=== PATIENT | female | born 1945 | race Caucasian/White ===

== ENCOUNTER 2022-06-17 10:09 | Emergency (ER) | payer OTHER ==
[2022-06-17 11:19] LABS: Urine Blood Trace-intact (Negative); Urine Glucose Trace (Negative); Urine Protein 1+ (Negative); Urine pH 5.5 (5.0-7.0)
[2022-06-17 11:44] LABS: Absolute Lymphocytes (CBC) 1.6 K/uL (0.7-4.9); Hematocrit 41.2 % (36.0-45.0); Lymphocytes % 26.7 % (15.3-44.8); MCV 89.6 fL (80-100); MPV 8.4 fL (7.6-11.3)
[2022-06-17 11:46] LABS: Urine Bacteria >50 /HPF (<20); Urine RBC <5 /HPF (None Seen)
[2022-06-17 11:58] LABS: Albumin 4.2 g/dL (3.4-5.0); Bilirubin Total 0.7 mg/dL (0.2-1.0); Potassium 3.7 mmol/L (3.5-5.1); Protein, Total 7.6 g/dL (6.4-8.2)
--- NOTE | 2022-06-17 11:59 | RAD REPORT ---
EXAM DESCRIPTION: RAD - Abdomen 1 View (KUB) - 06/17/2022 11:49 am CLINICAL HISTORY: CONSTIPATION COMPARISON: No comparisons FINDINGS: Nonobstructive bowel gas pattern. No acute osseous abnormality.Visualized lungs are unrema rkable.No abnormal calcifications. Moderate to large stool burden in the rectum. IMPRESSION: Nonobstructive bowel gas pattern. Moderate to large rectal stool burden consistent with given history of constipation. .
[2022-06-17] MEDS ORDERED: NA CHLORIDE 0.9% 1,000 ML ONE (13:06)
[2022-06-17] MEDS ORDERED: CEFTRIAXONE 1000 MG/VIAL ONE (13:27)
[2022-06-17] MEDS ORDERED: LIDOCAINE 1% MPF 2 ML AMPULE ONE (13:28)
[2022-06-17] MEDS ORDERED: LACTULOSE 20 GM/30 ML UCUP ONE (13:28)
[2022-06-17] MEDS ORDERED: FLEET ENEMA ADULT PR ONE (14:17)
--- NOTE | 2022-06-17 14:41 | ER ---
Nurse's Notes [facility] Name: Stephanie Thao Age: 77 yrs Sex: Female : 1945 Arrival Date: 06/17/2022 Time: 10:12 Bed 2 Private MD: Rj Lomeli Diagnosis: Constipation;UTI/ Urinary tract infection, site not specified Presentation: 06/17 10:29 Chief complaint: Patient states: constipated this morning , last BM was 2-3 days ago it iw was diarrhea , is having some cramps and has been straining ,has not taken any stool softeners at home. Coronavirus screen: At this time, the client does not indicate any symptoms associated with coronavirus-19. Ebola Screen: Patient negative for fever greater than or equal to 101.5 degrees Fahrenheit, and additional compatible Ebola Virus Disease symptoms Patient denies exposure to infectious person. Patient denies travel to an Ebola-affected area in the 21 days before illness onset. No symptoms or risks identified at this time. Initial Sepsis Screen: Does the patient meet any 2 criteria? No. Patient's initial sepsis screen is negative. Does the patient have a suspected source of infection? No. Patient's initial sepsis screen is negative. Risk Assessment: Do you want to hurt yourself or someone else? Patient reports no desire to harm self or others. Onset of symptoms was June 14, 2022. 10:29 Method Of Arrival: Ambulatory iw 10:29 Acuity: MADY 3 iw Historical: - Allergies: 10:30 Macrobid; iw - PMHx: 10:30 Diabetes mellitus; bowel obstruction; Myocardial infarction; iw - PSHx: 10:30 heart stents; hysterectomy; Cholecystectomy; iw - Immunization history:: Adult Immunizations. - Social history:: Smoking status: Patient denies any tobacco usage or history of. Screenin:12 Abuse screen: Denies threats or abuse. Denies injuries from another. Nutritional hb screening: No deficits noted. Tuberculosis screening: No symptoms or risk factors identified. Fall Risk None identified. Assessment: 10:32 General: Appears in no apparent distress. iw 13:12 General: Appears in no apparent distress. Behavior is calm, cooperative. Pain: Pain hb currently is 3 out of 10 on a pain scale. Neuro: Level of Consciousness is awake, alert, obeys commands, Oriented to person, place, time, situation. Cardiovascular: Patient's skin is warm and dry. Respiratory: Respiratory effort is even, unlabored, Respiratory pattern is regular, symmetrical. GI: Reports constipation. : No signs and/or symptoms were reported regarding the genitourinary system. EENT: No signs and/or symptoms were reported regarding the EENT system. Derm: Skin is pink, warm \T\ dry. Musculoskeletal: No signs and/or symptoms reported regarding the musculoskeletal system. Vital Signs: 10:29 BP 190 / 96; Pulse 71; Resp 16; Temp 97.4; Pulse Ox 97% on R/A; iw ED Course: 10:12 Patient arrived in ED. rg4 10:12 Rj Lomeli DO is Private Physician. rg4 10:30 Triage completed. iw 10:31 Arm band placed on. iw 10:38 Bee Weiss FNP is PHCP. jh7 10:38 Josh Joshi MD is Attending Physician. jh7 11:21 Urine Microscopic Only Sent. mb7 11:30 Urine Microscopic Only Sent. mb7 11:30 CBC with Diff Sent. mb7 11:30 CMP Sent. mb7 11:30 Inserted saline lock: 20 gauge in left antecubital area, using aseptic technique. Blood mb7 collected. 11:51 XRAY KUB In Process Unspecified. EDMS 12:56 Bety Cheung, RN is Primary Nurse. hb 13:12 Patient has correct armband on for positive identification. Bed in low position. Call hb light in reach. Side rails up X 1. 14:40 Rj Lomeli DO is Referral Physician. [facility] Administered Medications: 13:05 Drug: NS 0.9% 1000 ml Route: IV; Rate: 1 bolus; Site: left antecubital; hb 13:26 Drug: Rocephin (cefTRIAXone) 1 grams Route: IV; Rate: 1 calculated rate; Site: left hb antecubital; 13:26 Drug: Lactulose 30 grams Volume: 45 ml; Route: PO; hb 14:39 Not Given (pt had a BM): Fleet Enema (sodium phosphate) 133 ml LA once [facility] Medication: 13:12 VIS not applicable for this client. hb Outcome: 14:40 Discharge ordered by . [facility] 15:19 Patient left the ED. hb Signatures: Dispatcher [employer] Damari Jay, Bety Marquez RN, RN RN hb Garcia, Rubi 4 Jolene Noriega 7 Bee Weiss, JOSIAH OXYACETYLENE BURNER jh7
--- NOTE | 2022-06-17 14:41 | EDPHYS ---
Physician Documentation [facility] Name: Stephanie Thao Age: 77 yrs Sex: Female : 1945 Arrival Date: 06/17/2022 Time: 10:12 Bed 2 Private MD: [facility] ED Physician Josh Joshi HPI: 06/17 10:40 This 77 yrs old Female presents to ER via Ambulatory with complaints of Constipation. jh7 10:40 Onset: The symptoms/episode began/occurred 3 day(s) ago. Associated signs and symptoms: jh7 Pertinent positives: abdominal pain, Pertinent negatives: diarrhea. 77-year-old female presents with constipation for the past 3 days. States that she is used to chronic diarrhea due to her diabetic meds. Reports no bowel movement for 3 days and is also now having lower abdominal pain. Denies nausea, vomiting, or fever. States that she has not taken any laxatives or stool softeners at home. History of diabetes, [place] in 2017 with stents, and bowel obstruction. 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 Historical: - Allergies: 10:30 Macrobid; iw - PMHx: 10:30 Diabetes mellitus; bowel obstruction; Myocardial infarction; iw - PSHx: 10:30 heart stents; hysterectomy; Cholecystectomy; iw - Immunization history:: Adult Immunizations. - Social history:: Smoking status: Patient denies any tobacco usage or history of. ROS: 10:30 Constitutional: Negative for fever, chills, and weight loss, Neck: Negative for injury, jh7 pain, and swelling, Cardiovascular: Negative for chest pain, palpitations, and edema, Respiratory: Negative for shortness of breath, cough, wheezing, and pleuritic chest pain, Back: Negative for injury and pain, MS/Extremity: Negative for injury and deformity, Skin: Negative for injury, rash, and discoloration, Neuro: Negative for headache, weakness, numbness, tingling, and seizure. 10:30 Abdomen/GI: Positive for abdominal pain, constipation, Negative for nausea, vomiting, and diarrhea, black/tarry stool. 10:30 All other systems are negative. Exam: 10:30 Constitutional: This is a well developed, well nourished patient who is awake, alert, jh7 and in no acute distress. ENT: Nares patent. No nasal discharge, no septal abnormalities noted. Oropharynx with no redness, swelling, or masses, exudates, or evidence of obstruction, uvula midline. Mucous membranes moist. Neck: Trachea midline, no thyromegaly or masses palpated, and no cervical lymphadenopathy. Supple, full range of motion without nuchal rigidity, or vertebral point tenderness. No Meningismus. Cardiovascular: Regular rate and rhythm with a normal S1 and S2. No gallops, murmurs, or rubs. Normal PMI, no JVD. No pulse deficits. Respiratory: Lungs have equal breath sounds bilaterally, clear to auscultation and percussion. No rales, rhonchi or wheezes noted. No increased work of breathing, no retractions or nasal flaring. Back: No spinal tenderness. No costovertebral tenderness. Full range of motion. Skin: Warm, dry with normal turgor. Normal color with no rashes, no lesions, and no evidence of cellulitis. MS/ Extremity: Pulses equal, no cyanosis. Neurovascular intact. Full, normal range of motion. Neuro: Awake and alert, GCS 15, oriented to person, place, time, and situation. Motor strength 5/5 in all extremities. Sensory grossly intact. Normal gait. 10:30 Abdomen/GI: Inspection: abdomen appears normal, Bowel sounds: normal, Palpation: mild abdominal tenderness, in the right lower quadrant and left lower quadrant. Vital Signs: 10:29 BP 190 / 96; Pulse 71; Resp 16; Temp 97.4; Pulse Ox 97% on R/A; iw MDM: 12:51 Patient medically screened. [facility] 14:30 Differential diagnosis: Constipation, small bowel obstruction. Data reviewed: vital [facility] signs, nurses notes, lab test result(s), radiologic studies, plain films. Data interpreted: Pulse oximetry: is 97 %. Interpretation: normal. Counseling: I had a detailed discussion with the patient and/or guardian regarding: the historical points, exam findings, and any diagnostic results supporting the discharge/admit diagnosis, to return to the emergency department if symptoms worsen or persist or if there are any questions or concerns that arise at home. Response to treatment: the patient's symptoms have resolved after treatment, Patient had a bowel movement after lactulose and her abdominal pain resolved.. ED course: Reviewed the patient's lab work and x-ray. Her blood pressure decreased and her symptoms resolved after she had a bowel movement. Informed her that she had a UTI and she would be prescribed antibiotics along with stool softeners. If the patient symptoms returned, she developed any new concerning symptoms, she may return to the ER for further eval. 06/17 10:38 Order name: CBC with Diff; Complete Time: 12:50 [facility] 06/17 10:38 Order name: CMP; Complete Time: 12:50 [facility] 06/17 10:32 Order name: XRAY KUB; Complete Time: 12:50 06/17 10:38 Order name: Urine Microscopic Only; Complete Time: 12:50 [facility] 06/17 11:19 Order name: Urine Dipstick-Ancillary; Complete Time: 11:27 [facility] 06/17 11:49 Order name: Urine Culture [facility] 06/17 10:38 Order name: IV Saline Lock; Complete Time: 11:29 [facility] 06/17 10:38 Order name: Labs collected and sent; Complete Time: 11:30 [facility] 06/17 10:38 Order name: Urine Dipstick-Ancillary (obtain specimen); Complete Time: 11:21 [facility] Administered Medications: 13:05 Drug: NS 0.9% 1000 ml Route: IV; Rate: 1 bolus; Site: left antecubital; hb 13:26 Drug: Rocephin (cefTRIAXone) 1 grams Route: IV; Rate: 1 calculated rate; Site: left hb antecubital; 13:26 Drug: Lactulose 30 grams Volume: 45 ml; Route: PO; hb 14:39 Not Given (pt had a BM): Fleet Enema (sodium phosphate) 133 ml MS once [facility] Disposition Summary: 06/17/22 14:40 Discharge Ordered Location: Home [facility] Problem: new [facility] Symptoms: have improved [facility] Condition: Stable [facility] Diagnosis - Constipation [facility] - UTI/ Urinary tract infection, site not specified [facility] Followup: [facility] - With: Rj Lomeli DO - When: 2 - 3 days - Reason: Recheck today's complaints Discharge Instructions: - Discharge Summary Sheet [facility] - Constipation, Adult [facility] - Urinary Tract Infection, Adult [facility] Forms: - Medication Reconciliation Form [facility] - Thank You Letter [facility] - Antibiotic Education [facility] Prescriptions: - Cephalexin 500 mg Oral Capsule - take 1 capsule by ORAL route every 12 hours for 7 days; 14 capsule; Refills: 0, jh7 Product Selection Permitted - Colace 100 mg Oral Tablet - take 1 tablet by ORAL route every 12 hours; 14 tablet; Refills: 0, Product 7 Selection Permitted Signatures: Damari Zhang RN RN Bety Cheung RN RN Bee Weiss, MICRO COMPUTER SPECIALIST [place] [id number]
[2022-06-17 16:00] VITALS: BP 190/96; TEMP 97.4; O2SAT 97
== END 2022-06-17 15:19 | disposition home or self-care (01) ==
LOC: ER 10:09
DX: K59.00 Constipation, unspecified (principal); N39.0 Urinary tract infection, site not specified; E11.9 Type 2 diabetes mellitus without complications; I25.2 Old myocardial infarction; Z88.1 Allergy status to other antibiotic agents; Z95.818 Presence of other cardiac implants and grafts
CPT/HCPCS: 87088; 85025; 87086; 36415; 80053; 74018; J7030; 81003; 81015; 87077; 87186; 96374; 99284

== ENCOUNTER 2022-09-08 13:28 | Emergency (ER) | payer OTHER ==
--- OUTSIDE RECORDS SUMMARY | 2022-09-08 13:33 | XMS REPORT | Continuity of Care Document ---
:1945 Author Organization [facility] t Address [address] [place] [address] Care Team Providers Name Role Phone Lomeli, Rj Arnold Attending Clinician Unavailable Payers Payer Name Policy Type Policy Number Effective Date Expiration Date S evi [facility] [employer] 1 [id number] 2020 Common TRS/ERS MCR PPO 00:00:00 [facility] Problems Condition Condition Condition Status Onset Resolution Last Treating Co mments Source Name Details Category Date Date Treatment Clinician Date [id number] Type 2 [place] [id number] diabetes Spirit mellitus - [facility] with other diabetic [facility] kidney Medical complicati Center on [id number] Vitamin D Problem Active Comm on deficiency Spirit [facility] [id number] Constipati Problem Active Com mon on, Spirit unspecifie - [facility] d constipati [facility] on [facility] [id number] Mixed Problem Active Common hyperlipid Spirit emia [facility] [id number] Stented Problem Active Commo n coronary [facility] artery - [facility] [id number] Memory Problem Active Common change [facility] [id number] 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) [facility] herpetic Medical neuralgia Center [id number] History of Problem Active Co mmon [place] [facility] (myocardia - [facility] l [facility] ) [facility] [id number] Dementia Problem Active Commo n without [facility] d [facility] Center type [id number] Diabetic Problem Active Comm on polyneurop Spirit athy - [facility]I associated [facility] with type [facility] 2 diabetes Medica l mellitus Center [id number] Essential Problem Active Comm on hypertensi Spirit on - [facility] [id number] Asymptomat Problem Active Co mmon ic Spirit hypertensi - [facility] ve urgency [facility] [id number] 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 Social History Social Habit Start Date Stop Date Quantity Comments Source History of Tobacco Use Co mmon [facility] Sex Assigned At Com mon [facility] Smoking Status Start Date Stop Date Source Never Smoker Common [facility] Medications Ordered Filled Start Stop Current Ordering Indication Dosage Frequency Signature Comments Components Source Medication Medication Date Date Medication? Clinician (SIG) Name Name Mehul Ying Tradjenta 5 No 1{table QD Tradjenta MG MG 07-21 t} 5 MG 00:00: 00 Fluconazole Fluconazole 2021- No 1{table Fluconazol 150 MG 150 MG 06-22 08-04 t} e 150 MG 00:00: 00:00 00 :00 glipiZIDE glipiZIDE No 1{table BID glipiZIDE ER 5 MG ER 5 MG 01-19 t_with_ ER 5 MG 00:00: food} 00 Trulicity Trulicity 2021- No Trulicity 1.5mg/0.5ml 1.5mg/0.5ml 01-19 0630 1.5mg/0.5m 00:00: 00:00 l 00 :00 Trulicity Trulicity 2021- No Trulicity 1.5mg/0.5ml 1.5mg/0.5ml 01-19-30 1.5mg/0.5m 00:00: 00:00 l 00 :00 Trulicity Trulicity 2021- No Trulicity 1.5mg/0.5ml 1.5mg/0.5ml 01-1930 1.5mg/0.5m 00:00: 00:00 l 00 :00 Trulicity Trulicity 2021- No Trulicity 1.5mg/0.5ml 1.5mg/0.5ml 01-1930 1.5mg/0.5m 00:00: 00:00 l 00 :00 Trulicity Trulicity 2021- No Trulicity 1.5mg/0.5ml 1.5mg/0.5ml 01-1930 1.5mg/0.5m 00:00: 00:00 l 00 :00 glipiZIDE glipiZIDE No 1{table QD glipiZIDE ER 5 MG ER 5 MG 2-16 t_with_ ER 5 MG 00:00: food} 00 glipiZIDE glipiZIDE No 1{table QD glipiZIDE ER 5 MG ER 5 MG 2-16 t_with_ ER 5 MG 00:00: food} 00 Glimepiride Glimepiride No Glimepirid 2 MG 2 MG e 2 MG Memantine Memantine No 1{table BID Memantine HCl 10 MG HCl 10 MG t} HCl 10 MG Lidocaine 5 Lidocaine 5 No 1{appli TID Lidocaine % % cation_ 5 % as_need ed} Metoprolol Metoprolol No Metoprolol Succinate Succinate Succinate ER 25 MG ER 25 MG ER 25 MG Ezetimibe Ezetimibe No Ezetimibe 10 MG 10 MG 10 MG Glimepiride Glimepiride No Glimepirid 4 MG 4 MG e 4 MG Losartan Losartan No 1{table QD Losartan Potassium Potassium t} Potassium 25 MG 25 MG 25 MG Gabapentin Gabapentin No Gabapentin 300 MG 300 MG 300 MG Metoprolol Metoprolol No QD Metoprolol Succinate Succinate Succinate ER 25 MG ER 25 MG ER 25 MG Glimepiride Glimepiride No BID Glimepirid 4 MG 4 MG e 4 MG Aspirin 81 Aspirin 81 No 1{table QD Aspirin 81 81 MG 81 MG t} 81 MG Losartan Losartan No 1{table QD Losartan Potassium Potassium t} Potassium 25 MG 25 MG 25 MG Gabapentin Gabapentin No 1{capsu TID Gabapentin 300 MG 300 MG le} 300 MG Ezetimibe Ezetimibe No 1{table QD Ezetimibe 10 MG 10 MG t} 10 MG Lidocaine 5 Lidocaine 5 No Lidocaine % % 5 % Repatha Repatha No Repatha 140mg/ml 140mg/ml 140mg/ml Repatha Repatha No Repatha SureClick SureClick SureClick 140 MG/ML 140 MG/ML 140 MG/ML Metoprolol Metoprolol No Metoprolol Succinate Succinate Succinate ER 25 MG ER 25 MG ER 25 MG Glimepiride Glimepiride No Glimepirid 2 MG 2 MG e 2 MG Glimepiride Glimepiride No BID Glimepirid 4 MG 4 MG e 4 MG Aspirin 81 Aspirin 81 No 1{table QD Aspirin 81 81 MG 81 MG t} 81 MG Glimepiride Glimepiride No Glimepirid 4 MG 4 MG e 4 MG Ezetimibe Ezetimibe No Ezetimibe 10 MG 10 MG 10 MG Gabapentin Gabapentin No Gabapentin 300 MG 300 MG 300 MG Metoprolol Metoprolol No QD Metoprolol Succinate Succinate Succinate ER 25 MG ER 25 MG ER 25 MG Losartan Losartan No Losartan Potassium Potassium Potassium 25 MG 25 MG 25 MG Repatha Repatha No Repatha 140mg/ml 140mg/ml 140mg/ml Repatha Repatha No Repatha SureClick SureClick SureClick 140 MG/ML 140 MG/ML 140 MG/ML Lidocaine 5 Lidocaine 5 No 1{appli TID Lidocaine % % cation_ 5 % as_need ed} Ezetimibe Ezetimibe No 1{table QD Ezetimibe 10 MG 10 MG t} 10 MG Lidocaine 5 Lidocaine 5 No Lidocaine % % 5 % Gabapentin Gabapentin No 1{capsu TID Gabapentin 300 MG 300 MG le} 300 MG Memantine Memantine No 1{table BID Memantine HCl 10 MG HCl 10 MG t} HCl 10 MG Metoprolol Metoprolol No Metoprolol Succinate Succinate Succinate ER 25 MG ER 25 MG ER 25 MG Glimepiride Glimepiride No BID Glimepirid 4 MG 4 MG e 4 MG Aspirin 81 Aspirin 81 No 1{table QD Aspirin 81 81 MG 81 MG t} 81 MG Glimepiride Glimepiride No Glimepirid 4 MG 4 MG e 4 MG Ezetimibe Ezetimibe No Ezetimibe 10 MG 10 MG 10 MG Gabapentin Gabapentin No Gabapentin 300 MG 300 MG 300 MG Ezetimibe Ezetimibe No 1{table QD Ezetimibe 10 MG 10 MG t} 10 MG Metoprolol Metoprolol No QD Metoprolol Succinate Succinate Succinate ER 25 MG ER 25 MG ER 25 MG Repatha Repatha No Repatha 140mg/ml 140mg/ml 140mg/ml Repatha Repatha No Repatha SureClick SureClick SureClick 140 MG/ML 140 MG/ML 140 MG/ML Lidocaine 5 Lidocaine 5 No 1{appli TID Lidocaine % % cation_ 5 % as_need ed} Losartan Losartan No Losartan Potassium Potassium Potassium 25 MG 25 MG 25 MG Lidocaine 5 Lidocaine 5 No Lidocaine % % 5 % Gabapentin Gabapentin No 1{capsu TID Gabapentin 300 MG 300 MG le} 300 MG Memantine Memantine No 1{table BID Memantine HCl 10 MG HCl 10 MG t} HCl 10 MG Ezetimibe Ezetimibe No Ezetimibe 10 MG 10 MG 10 MG Metoprolol Metoprolol No QD Metoprolol Succinate Succinate Succinate ER 25 MG ER 25 MG ER 25 MG Repatha Repatha No Repatha 140mg/ml 140mg/ml 140mg/ml Glimepiride Glimepiride No Glimepirid 4 MG 4 MG e 4 MG Aspirin 81 Aspirin 81 No 1{table QD Aspirin 81 81 MG 81 MG t} 81 MG Gabapentin Gabapentin No Gabapentin 300 MG 300 MG 300 MG Losartan Losartan No Losartan Potassium Potassium Potassium 25 MG 25 MG 25 MG Gabapentin Gabapentin No 1{capsu TID Gabapentin 300 MG 300 MG le} 300 MG Memantine Memantine No 1{table BID Memantine HCl 10 MG HCl 10 MG t} HCl 10 MG Glimepiride Glimepiride No BID Glimepirid 4 MG 4 MG e 4 MG Repatha Repatha No Repatha SureClick SureClick SureClick 140 MG/ML 140 MG/ML 140 MG/ML Lidocaine 5 Lidocaine 5 No Lidocaine % % 5 % Lidocaine 5 Lidocaine 5 No 1{appli TID Lidocaine % % cation_ 5 % as_need ed} Metoprolol Metoprolol No Metoprolol Succinate Succinate Succinate ER 25 MG ER 25 MG ER 25 MG Ezetimibe Ezetimibe No Ezetimibe 10 MG 10 MG 10 MG Lidocaine 5 Lidocaine 5 No Lidocaine % % 5 % Aspirin 81 Aspirin 81 No 1{table QD Aspirin 81 81 MG 81 MG t} 81 MG Metoprolol Metoprolol No Metoprolol Succinate Succinate Succinate ER 25 MG ER 25 MG ER 25 MG Gabapentin Gabapentin No 1{capsu TID Gabapentin 300 MG 300 MG le} 300 MG Vitamin D Vitamin D No Vitamin D Repatha Repatha No Repatha 140mg/ml 140mg/ml 140mg/ml Ezetimibe Ezetimibe No 1{table QD Ezetimibe 10 MG 10 MG t} 10 MG Memantine Memantine No 1{table BID Memantine HCl 10 MG HCl 10 MG t} HCl 10 MG Probiotic Probiotic No Probiotic Metoprolol Metoprolol No QD Metoprolol Succinate Succinate Succinate ER 25 MG ER 25 MG ER 25 MG Gabapentin Gabapentin No Gabapentin 300 MG 300 MG 300 MG Tylenol 8 Tylenol 8 No Tylenol 8 Hour Hour Hour Arthritis Arthritis Arthritis Pain Pain Pain Donepezil Donepezil No BID Donepezil HCl 10 MG HCl 10 MG HCl 10 MG Lidocaine 5 Lidocaine 5 No 1{appli TID Lidocaine % % cation_ 5 % as_need ed} Repatha Repatha No Repatha SureClick SureClick SureClick 140 MG/ML 140 MG/ML 140 MG/ML Losartan Losartan No 1{table QD Losartan Potassium Potassium t} Potassium 25 MG 25 MG 25 MG Glimepiride Glimepiride No Glimepirid 4 MG 4 MG e 4 MG Losartan Losartan No Losartan Potassium Potassium Potassium 25 MG 25 MG 25 MG Lidocaine 5 Lidocaine 5 No Lidocaine % % 5 % Metoprolol Metoprolol No Metoprolol Succinate Succinate Succinate ER 25 MG ER 25 MG ER 25 MG Repatha Repatha No Repatha SureClick SureClick SureClick 140 MG/ML 140 MG/ML 140 MG/ML Aspirin 81 Aspirin 81 No 1{table QD Aspirin 81 81 MG 81 MG t} 81 MG Vitamin D Vitamin D No Vitamin D Gabapentin Gabapentin No 1{capsu TID Gabapentin 300 MG 300 MG le} 300 MG Losartan Losartan No Losartan Potassium Potassium Potassium 25 MG 25 MG 25 MG Repatha Repatha No Repatha 140mg/ml 140mg/ml 140mg/ml Ezetimibe Ezetimibe No 1{table QD Ezetimibe 10 MG 10 MG t} 10 MG Memantine Memantine No 1{table BID Memantine HCl 10 MG HCl 10 MG t} HCl 10 MG Probiotic Probiotic No Probiotic Metoprolol Metoprolol No QD Metoprolol Succinate Succinate Succinate ER 25 MG ER 25 MG ER 25 MG Gabapentin Gabapentin No Gabapentin 300 MG 300 MG 300 MG Tylenol 8 Tylenol 8 No Tylenol 8 Hour Hour Hour Arthritis Arthritis Arthritis Pain Pain Pain Lidocaine 5 Lidocaine 5 No 1{appli TID Lidocaine % % cation_ 5 % as_need ed} Donepezil Donepezil No BID Donepezil HCl 10 MG HCl 10 MG HCl 10 MG glipiZIDE glipiZIDE No BID glipiZIDE ER 5 MG ER 5 MG ER 5 MG Glimepiride Glimepiride No Glimepirid 4 MG 4 MG e 4 MG Ezetimibe Ezetimibe No Ezetimibe 10 MG 10 MG 10 MG Lidocaine 5 Lidocaine 5 No Lidocaine % % 5 % Metoprolol Metoprolol No Metoprolol Succinate Succinate Succinate ER 25 MG ER 25 MG ER 25 MG Repatha Repatha No Repatha SureClick SureClick SureClick 140 MG/ML 140 MG/ML 140 MG/ML Aspirin 81 Aspirin 81 No 1{table QD Aspirin 81 81 MG 81 MG t} 81 MG Vitamin D Vitamin D No Vitamin D Gabapentin Gabapentin No 1{capsu TID Gabapentin 300 MG 300 MG le} 300 MG Losartan Losartan No Losartan Potassium Potassium Potassium 25 MG 25 MG 25 MG Repatha Repatha No Repatha 140mg/ml 140mg/ml 140mg/ml Ezetimibe Ezetimibe No 1{table QD Ezetimibe 10 MG 10 MG t} 10 MG Memantine Memantine No 1{table BID Memantine HCl 10 MG HCl 10 MG t} HCl 10 MG Probiotic Probiotic No Probiotic Metoprolol Metoprolol No QD Metoprolol Succinate Succinate Succinate ER 25 MG ER 25 MG ER 25 MG Gabapentin Gabapentin No Gabapentin 300 MG 300 MG 300 MG Tylenol 8 Tylenol 8 No Tylenol 8 Hour Hour Hour Arthritis Arthritis Arthritis Pain Pain Pain Lidocaine 5 Lidocaine 5 No 1{appli TID Lidocaine % % cation_ 5 % as_need ed} Donepezil Donepezil No BID Donepezil HCl 10 MG HCl 10 MG HCl 10 MG glipiZIDE glipiZIDE No BID glipiZIDE ER 5 MG ER 5 MG ER 5 MG Glimepiride Glimepiride No Glimepirid 4 MG 4 MG e 4 MG Ezetimibe Ezetimibe No Ezetimibe 10 MG 10 MG 10 MG Gabapentin Gabapentin No Gabapentin 300 MG 300 MG 300 MG Losartan Losartan No Losartan Potassium Potassium Potassium 25 MG 25 MG 25 MG Repatha Repatha No Repatha SureClick SureClick SureClick 140 MG/ML 140 MG/ML 140 MG/ML Aspirin 81 Aspirin 81 No 1{table QD Aspirin 81 81 MG 81 MG t} 81 MG Donepezil Donepezil No BID Donepezil HCl 10 MG HCl 10 MG HCl 10 MG Repatha Repatha No Repatha 140mg/ml 140mg/ml 140mg/ml Glimepiride Glimepiride No Glimepirid 4 MG 4 MG e 4 MG Vitamin D Vitamin D No Vitamin D Tylenol 8 Tylenol 8 No Tylenol 8 Hour Hour Hour Arthritis Arthritis Arthritis Pain Pain Pain Metoprolol Metoprolol No Metoprolol Succinate Succinate Succinate ER 25 MG ER 25 MG ER 25 MG Ezetimibe Ezetimibe No 1{table QD Ezetimibe 10 MG 10 MG t} 10 MG Lidocaine 5 Lidocaine 5 No 1{appli TID Lidocaine % % cation_ 5 % as_need ed} Lidocaine 5 Lidocaine 5 No Lidocaine % % 5 % Gabapentin Gabapentin No 1{capsu TID Gabapentin 300 MG 300 MG le} 300 MG Memantine Memantine No 1{table BID Memantine HCl 10 MG HCl 10 MG t} HCl 10 MG glipiZIDE glipiZIDE No BID glipiZIDE ER 5 MG ER 5 MG ER 5 MG Metoprolol Metoprolol No QD Metoprolol Succinate Succinate Succinate ER 25 MG ER 25 MG ER 25 MG Ezetimibe Ezetimibe No Ezetimibe 10 MG 10 MG 10 MG Probiotic Probiotic No Probiotic Gabapentin Gabapentin No Gabapentin 300 MG 300 MG 300 MG Losartan Losartan No Losartan Potassium Potassium Potassium 25 MG 25 MG 25 MG Repatha Repatha No Repatha SureClick SureClick SureClick 140 MG/ML 140 MG/ML 140 MG/ML Aspirin 81 Aspirin 81 No 1{table QD Aspirin 81 81 MG 81 MG t} 81 MG Donepezil Donepezil No BID Donepezil HCl 10 MG HCl 10 MG HCl 10 MG Repatha Repatha No Repatha 140mg/ml 140mg/ml 140mg/ml Glimepiride Glimepiride No Glimepirid 4 MG 4 MG e 4 MG Vitamin D Vitamin D No Vitamin D Tylenol 8 Tylenol 8 No Tylenol 8 Hour Hour Hour Arthritis Arthritis Arthritis Pain Pain Pain Metoprolol Metoprolol No Metoprolol Succinate Succinate Succinate ER 25 MG ER 25 MG ER 25 MG Ezetimibe Ezetimibe No 1{table QD Ezetimibe 10 MG 10 MG t} 10 MG Lidocaine 5 Lidocaine 5 No 1{appli TID Lidocaine % % cation_ 5 % as_need ed} Lidocaine 5 Lidocaine 5 No Lidocaine % % 5 % Gabapentin Gabapentin No 1{capsu TID Gabapentin 300 MG 300 MG le} 300 MG Memantine Memantine No 1{table BID Memantine HCl 10 MG HCl 10 MG t} HCl 10 MG glipiZIDE glipiZIDE No BID glipiZIDE ER 5 MG ER 5 MG ER 5 MG Metoprolol Metoprolol No QD Metoprolol Succinate Succinate Succinate ER 25 MG ER 25 MG ER 25 MG Ezetimibe Ezetimibe No Ezetimibe 10 MG 10 MG 10 MG Probiotic Probiotic No Probiotic Gabapentin Gabapentin No Gabapentin 300 MG 300 MG 300 MG Probiotic Probiotic No Probiotic Losartan Losartan No Losartan Potassium Potassium Potassium 25 MG 25 MG 25 MG Gabapentin Gabapentin No 1{capsu TID Gabapentin 300 MG 300 MG le} 300 MG Aspirin 81 Aspirin 81 No 1{table QD Aspirin 81 81 MG 81 MG t} 81 MG Vitamin D Vitamin D No Vitamin D Repatha Repatha No Repatha 140mg/ml 140mg/ml 140mg/ml Tylenol 8 Tylenol 8 No Tylenol 8 Hour Hour Hour Arthritis Arthritis Arthritis Pain Pain Pain Glimepiride Glimepiride No Glimepirid 4 MG 4 MG e 4 MG Metoprolol Metoprolol No QD Metoprolol Succinate Succinate Succinate ER 25 MG ER 25 MG ER 25 MG Ezetimibe Ezetimibe No 1{table QD Ezetimibe 10 MG 10 MG t} 10 MG Repatha Repatha No Repatha SureClick SureClick SureClick 140 MG/ML 140 MG/ML 140 MG/ML Donepezil Donepezil No BID Donepezil HCl 10 MG HCl 10 MG HCl 10 MG Memantine Memantine No 1{table BID Memantine HCl 10 MG HCl 10 MG t} HCl 10 MG Ezetimibe Ezetimibe No Ezetimibe 10 MG 10 MG 10 MG Metoprolol Metoprolol No Metoprolol Succinate Succinate Succinate ER 25 MG ER 25 MG ER 25 MG glipiZIDE glipiZIDE No glipiZIDE ER 5 MG ER 5 MG ER 5 MG Lidocaine 5 Lidocaine 5 No 1{appli TID Lidocaine % % cation_ 5 % as_need ed} Lidocaine 5 Lidocaine 5 No Lidocaine % % 5 % Losartan Losartan No Losartan Potassium Potassium Potassium 25 MG 25 MG 25 MG Gabapentin Gabapentin No 1{capsu TID Gabapentin 300 MG 300 MG le} 300 MG Donepezil Donepezil No BID Donepezil HCl 10 MG HCl 10 MG HCl 10 MG Glimepiride Glimepiride No Glimepirid 4 MG 4 MG e 4 MG Repatha Repatha No Repatha SureClick SureClick SureClick 140 MG/ML 140 MG/ML 140 MG/ML glipiZIDE glipiZIDE No glipiZIDE ER 5 MG ER 5 MG ER 5 MG Repatha Repatha No Repatha 140mg/ml 140mg/ml 140mg/ml Lidocaine 5 Lidocaine 5 No 1{appli TID Lidocaine % % cation_ 5 % as_need ed} Vitamin D Vitamin D No Vitamin D Metoprolol Metoprolol No QD Metoprolol Succinate Succinate Succinate ER 25 MG ER 25 MG ER 25 MG Metoprolol Metoprolol No Metoprolol Succinate Succinate Succinate ER 25 MG ER 25 MG ER 25 MG Ezetimibe Ezetimibe No 1{table QD Ezetimibe 10 MG 10 MG t} 10 MG Tylenol 8 Tylenol 8 No Tylenol 8 Hour Hour Hour Arthritis Arthritis Arthritis Pain Pain Pain Lidocaine 5 Lidocaine 5 No Lidocaine % % 5 % Probiotic Probiotic No Probiotic Memantine Memantine No 1{table BID Memantine HCl 10 MG HCl 10 MG t} HCl 10 MG Ezetimibe Ezetimibe No Ezetimibe 10 MG 10 MG 10 MG Aspirin 81 Aspirin 81 No 1{table QD Aspirin 81 81 MG 81 MG t} 81 MG Gabapentin Gabapentin No Gabapentin 300 MG 300 MG 300 MG Repatha Repatha No Repatha 140mg/ml 140mg/ml 140mg/ml Donepezil Donepezil No BID Donepezil HCl 10 MG HCl 10 MG HCl 10 MG Memantine Memantine No 1{table BID Memantine HCl 10 MG HCl 10 MG t} HCl 10 MG Ezetimibe Ezetimibe No Ezetimibe 10 MG 10 MG 10 MG Tylenol 8 Tylenol 8 No Tylenol 8 Hour Hour Hour Arthritis Arthritis Arthritis Pain Pain Pain Vitamin D Vitamin D No Vitamin D glipiZIDE glipiZIDE No glipiZIDE ER 5 MG ER 5 MG ER 5 MG Lidocaine 5 Lidocaine 5 No 1{appli TID Lidocaine % % cation_ 5 % as_need ed} Losartan Losartan No Losartan Potassium Potassium Potassium 25 MG 25 MG 25 MG Lidocaine 5 Lidocaine 5 No Lidocaine % % 5 % Probiotic Probiotic No Probiotic Repatha Repatha No Repatha SureClick SureClick SureClick 140 MG/ML 140 MG/ML 140 MG/ML Ezetimibe Ezetimibe No 1{table QD Ezetimibe 10 MG 10 MG t} 10 MG Metoprolol Metoprolol No Metoprolol Succinate Succinate Succinate ER 25 MG ER 25 MG ER 25 MG Aspirin 81 Aspirin 81 No 1{table QD Aspirin 81 81 MG 81 MG t} 81 MG Glimepiride Glimepiride No Glimepirid 4 MG 4 MG e 4 MG Gabapentin Gabapentin No Gabapentin 300 MG 300 MG 300 MG Memantine Memantine No 1{table BID Memantine HCl 10 MG HCl 10 MG t} HCl 10 MG Glimepiride Glimepiride No Glimepirid 4 MG 4 MG e 4 MG Repatha Repatha No Repatha 140mg/ml 140mg/ml 140mg/ml Gabapentin Gabapentin No 1{capsu QD Gabapentin 600 MG 600 MG le_at_b 600 MG edtime} Lidocaine 5 Lidocaine 5 No Lidocaine % % 5 % glipiZIDE glipiZIDE No 1{table BID glipiZIDE ER 5 MG ER 5 MG t_with_ ER 5 MG food} Metoprolol Metoprolol No Metoprolol Succinate Succinate Succinate ER 25 MG ER 25 MG ER 25 MG Aspirin 81 Aspirin 81 No 1{table QD Aspirin 81 81 MG 81 MG t} 81 MG Metoprolol Metoprolol No QD Metoprolol Succinate Succinate Succinate ER 25 MG ER 25 MG ER 25 MG Ezetimibe Ezetimibe No Ezetimibe 10 MG 10 MG 10 MG Vitamin D Vitamin D No Vitamin D Donepezil Donepezil No BID Donepezil HCl 10 MG HCl 10 MG HCl 10 MG Ezetimibe Ezetimibe No 1{table QD Ezetimibe 10 MG 10 MG t} 10 MG glipiZIDE glipiZIDE No glipiZIDE ER 5 MG ER 5 MG ER 5 MG Losartan Losartan No 1{table QD Losartan Potassium Potassium t} Potassium 25 MG 25 MG 25 MG Tylenol 8 Tylenol 8 No Tylenol 8 Hour Hour Hour Arthritis Arthritis Arthritis Pain Pain Pain Gabapentin Gabapentin No Gabapentin 300 MG 300 MG 300 MG Losartan Losartan No Losartan Potassium Potassium Potassium 25 MG 25 MG 25 MG Lidocaine 5 Lidocaine 5 No 1{appli TID Lidocaine % % cation_ 5 % as_need ed} Probiotic Probiotic No Probiotic Metoprolol Metoprolol No Metoprolol Succinate Succinate Succinate ER 25 MG ER 25 MG ER 25 MG Ezetimibe Ezetimibe No Ezetimibe 10 MG 10 MG 10 MG Repatha Repatha No Repatha 140mg/ml 140mg/ml 140mg/ml Gabapentin Gabapentin No Gabapentin 300 MG 300 MG 300 MG Lidocaine 5 Lidocaine 5 No 1{appli TID Lidocaine % % cation_ 5 % as_need ed} Glimepiride Glimepiride No Glimepirid 2 MG 2 MG e 2 MG Aspirin 81 Aspirin 81 No 1{table QD Aspirin 81 81 MG 81 MG t} 81 MG Glimepiride Glimepiride No Glimepirid 4 MG 4 MG e 4 MG Lidocaine 5 Lidocaine 5 No Lidocaine % % 5 % Losartan Losartan No 1{table QD Losartan Potassium Potassium t} Potassium 25 MG 25 MG 25 MG Glimepiride Glimepiride No BID Glimepirid 4 MG 4 MG e 4 MG Repatha Repatha 2021- No Repatha SureClick SureClick 11-30 SureClick 140 MG/ML 140 MG/ML 00:00 140 MG/ML :00 Vital Signs Vital Name Observation Time Observation Value Comments Source height 2022-07-21 09:00:00 64 [in_i] [facility] weight 2022-07-21 09:00:00 158.7 [lb_av] [facility] temperature 2022-07-21 09:00:00 97.4 [degF] [facility] bmi 2022-07-21 09:00:00 27.24 kg/m2 [facility] oximetry 2022-07-21 09:00:00 96 % [facility] respiratory rate 2022-07-21 09:00:00 16 /min Comm on [facility] blood pressure 2022-07-21 09:00:00 142 mm[Hg] [facility] systolic [facility] blood pressure 2022-07-21 09:00:00 76 mm[Hg] [facility] diastolic [facility] height 2022-06-22 09:00:00 64 [in_i] [facility] weight 2022-06-22 09:00:00 154 [lb_av] [facility] 2022-06-22 09:00:00 26.43 kg/m2 [facility] height 2022-04-14 09:00:00 64 [in_i] [facility] weight 2022-04-14 09:00:00 159.9 [lb_av] [facility] temperature 2022-04-14 09:00:00 97.1 [degF] [facility] bmi 2022-04-14 09:00:00 27.44 kg/m2 [facility] oximetry 2022-04-14 09:00:00 99 % [facility] respiratory rate 2022-04-14 09:00:00 18 /min Comm on [facility] blood pressure 2022-04-14 09:00:00 138 mm[Hg] [facility] blood pressure 2022-04-14 09:00:00 78 mm[Hg] Common [facility] - diastolic [facility] height 2022-04-14 09:00:00 64 [in_i] Common [facility] weight 2022-04-14 09:00:00 159.9 [lb_av] Common [facility] temperature 2022-04-14 09:00:00 97.1 [degF] Common [facility] bmi 2022-04-14 09:00:00 27.44 kg/m2 [facility] oximetry 2022-04-14 09:00:00 99 % [facility] respiratory rate 2022-04-14 09:00:00 18 /min Comm on [facility] blood pressure 2022-04-14 09:00:00 138 mm[Hg] Common [facility] - systolic [facility] blood pressure 2022-04-14 09:00:00 78 mm[Hg] Common [facility] - diastolic [facility] height 2022-01-19 15:00:00 64 [in_i] Common [facility] weight 2022-01-19 15:00:00 172.9 [lb_av] [facility] temperature 2022-01-19 15:00:00 97.7 [degF] Common [facility] bmi 2022-01-19 15:00:00 29.67 kg/m2 [facility] oximetry 2022-01-19 15:00:00 97 % [facility] respiratory rate 2022-01-19 15:00:00 17 /min Comm on [facility] blood pressure 2022-01-19 15:00:00 135 mm[Hg] Common [facility] - systolic [facility] blood pressure 2022-01-19 15:00:00 76 mm[Hg] Common [facility] - diastolic [facility] height 2021-10-21 14:50:00 64 [in_i] Common [facility] weight 2021-10-21 14:50:00 176.5 [lb_av] Common [facility] temperature 2021-10-21 14:50:00 97.6 [degF] Common [facility] bmi 2021-10-21 14:50:00 30.29 kg/m2 [facility] oximetry 2021-10-21 14:50:00 96 % Common [facility] respiratory rate 2021-10-21 14:50:00 16 /min Comm on [facility] blood pressure 2021-10-21 14:50:00 133 mm[Hg] Common [facility] systolic [facility] blood pressure 2021-10-21 14:50:00 75 mm[Hg] Common [facility] diastolic [facility] Procedures This patient has no known procedures. Encounters Start End Encounter Admission Attending Care Care Encounter Source Date/Time Date/Time Type Type Clinicians Facility Department ID 2022-07-21 Outpatient Lomeli, STLMLC STLC [id number] Common 08:43:03 Rj [id number] [facility] 2021-12-15 Outpatient Lomeli, STLMLC STLC [id number] Common 14:06:04 Rj [id number] [facility] 2021-12-15 Outpatient Lomeli, STLMLC STLC [id number] Common 13:49:14 Rj [id number] [facility] 2021-12-15 Outpatient Lomeli, STLMLC STLC [id number] Common 12:59:06 Rj [id number] [facility] 2021-12-15 Outpatient Lomeli, STLMLC STLMLC [id number] Common 12:54:46 Rj [id number] [facility] 2021-12-15 Outpatient Lomeli, STLMLC STLC [id number] Common 12:51:08 Rj [id number] [facility] 2021-12-15 Outpatient Lomeli, STLMLC STLC [id number] Common 12:49:56 Rj [id number] [facility] 2021-12-15 Outpatient Lomeli, STLMLC STLMLC [id number] Common 12:49:17 Rj [id number] [facility] 2021-12-15 Outpatient Lomeli, STLMLC STLMLC [id number] Common 12:30:57 Rj [id number] [facility] 2021-12-15 Outpatient STLMLC STLMLC [id number] Common 12:30:25 [id number] [facility] 2022-07-21 2022-07-21 OFFICE STLMLC STLMLC [id number] Co mmon 00:00:00 00:00:00 VISIT [facility] ESTAB PT - CHI LEVEL 4 [facility] 2022-07-18 2022-07-18 (TEL) STLMLC STLMLC [id number] Co mmon 00:00:00 00:00:00 [facility] 2022-06-22 2022-06-22 OFFICE STLMLC STLMLC [id number] Co mmon 00:00:00 00:00:00 VISIT EST Spir it PT LEVEL 3 [facility] 2022-06-20 2022-06-20 (TEL) STLMLC STLMLC [id number] Co mmon 00:00:00 00:00:00 [facility] 2022-04-14 2022-04-14 OFFICE STLMLC STLMLC [id number] Co mmon 00:00:00 00:00:00 VISIT [facility] ESTAB PT - CHI LEVEL 4 [facility] 2022-04-14 2022-04-14 SUB ANNUAL STLMLC STLMLC [id number] Common 00:00:00 00:00:00 MCR [facility] WELLNESS - CHI VISIT [facility] 2022-04-05 2022-04-05 (TEL) STLMLC STLMLC [id number] Co mmon 00:00:00 00:00:00 [facility] 2022-03-24 2022-03-24 (TEL) STLMLC STLMLC [id number] Co mmon 00:00:00 00:00:00 [facility] 2022-01-19 2022-01-19 OFFICE STLMLC STLMLC [id number] Co mmon 00:00:00 00:00:[address] [facility] 4 [facility] 2021-12-30 2021-12-30 (TEL) STLMLC STLMLC [id number] Co mmon 00:00:00 00:00:00 [facility] 2021-12-29 2021-12-29 (TEL) STLMLC STLMLC [id number] Co mmon 00:00:00 00:00:00 [facility] 2021-11-09 2021-11-09 (TEL) STLMLC STLMLC [id number] Co mmon 00:00:00 00:00:00 [facility] 2021-10-21 2021-10-21 OFFICE STLMLC STLMLC [id number] Co mmon 00:00:00 00:00:[address] 2021-08-02 2021-08-02 (TEL) STLMLC STLMLC [id number] Co mmon 00:00:00 00:00:00 [facility] 2021-06-17 2021-06-17 Outpatient STLMLC STLMLC [id number] Common 00:00:00 00:00:00 [facility] 2021-06-17 2021-06-17 Outpatient STLMLC STLMLC [id number] Common 00:00:00 00:00:00 [facility] 2021-04-29 2021-04-29 Outpatient STLMLC STLMLC [id number] Common 00:00:00 00:00:00 [facility] 2021-03-19 2021-03-19 Outpatient STLMLC STLMLC [id number] Common 00:00:00 00:00:00 [facility] 2021-03-18 2021-03-18 Outpatient STLMLC STLMLC [id number] Common 00:00:00 00:00:00 [facility] 2021-03-03 2021-03-03 Outpatient STLMLC STLMLC [id number] Common 00:00:00 00:00:00 [facility] 2021-03-02 2021-03-02 Outpatient STLMLC STLMLC [id number] Common 00:00:00 00:00:00 [facility] 2021-02-25 2021-02-25 Outpatient STLMLC STLMLC [id number] Common 00:00:00 00:00:00 [facility] 2021-02-25 2021-02-25 Outpatient STLMLC STLMLC [id number] Common 00:00:00 00:00:00 [facility] 2021-02-19 2021-02-19 Outpatient STLMLC STLMLC [id number] Common 00:00:00 00:00:00 [facility] 2021-01-09 2021-01-09 Outpatient STLMLC STLMLC [id number] Common 00:00:00 00:00:00 [facility] 2020-12-31 2020-12-31 Outpatient STLMLC STLMLC [id number] Common 00:00:00 00:00:00 [facility] Results This patient has no known results.
--- NOTE | 2022-09-08 14:48 | RAD REPORT ---
EXAM DESCRIPTION: RAD - Hip Right 2 View - 09/08/2022 2:05 pm CLINICAL HISTORY: Right hip pain FINDINGS: No fracture or dislocation is seen. Mild osteoarthritis right hip. Ill-defined increased density is present within the lateral soft tissues of the right thigh. This may represent edema or probably less likely a mass. This should be correlated clinically. Ultrasound may be helpful for further evaluation
--- NOTE | 2022-09-08 14:49 | RAD REPORT ---
EXAM DESCRIPTION: RAD - Femur Right - 09/08/2022 2:05 pm CLINICAL HISTORY: Leg pain FINDINGS: No fracture or dislocation is seen. Mild osteoarthritis right hip. Ill-defined increased density is present within the lateral soft tissues of the right thigh. This may represent edema or probably less likely a mass. This should be correlated clinically. Ultrasound may be helpful for further evaluation
--- NOTE | 2022-09-08 15:43 | EDPHYS ---
Physician Documentation [facility] Name: Stephanie Thao Age: 77 yrs Sex: Female : 1945 Arrival Date: 09/08/2022 Time: 13:31 Bed 3 Private MD: ED Physician Josh Joshi HPI: 09/08 16:11 This 77 yrs old Female presents to ER via EMS with complaints of Hip Injury. kb 16:12 Details of fall: The patient fell from an upright position, while walking. Onset: The kb symptoms/episode began/occurred just prior to arrival. Associated injuries: The patient sustained lateral aspect of right thigh, hematoma. Severity of symptoms: At their worst the symptoms were moderate, in the emergency department the symptoms are unchanged. The patient has not experienced similar symptoms in the past. The patient has not recently seen a physician. Pt states she was carrying heavy groceries into the house and she fell onto right side. c/o pain to right lateral thigh only. Able to ambulate. Historical: - Allergies: 13:33 Macrobid; mb8 - PMHx: 13:33 bowel obstruction; diabetes mellitus; Myocardial infarction; mb8 - PSHx: 13:33 Cholecystectomy; Heart Stents; hysterectomy; mb8 - Social history:: Smoking status: Patient denies any tobacco usage or history of. ROS: 16:08 Constitutional: Negative for fever, chills, and weight loss. kb 16:08 Skin: Positive for hematoma, of the lateral aspect of right thigh. 16:08 All other systems are negative. Exam: 16:08 Constitutional: This is a well developed, well nourished patient who is awake, alert, kb and in no acute distress. Head/Face: Normocephalic, atraumatic. ENT: Moist Mucous membranes Cardiovascular: Regular rate and rhythm with a normal S1 and S2. No gallops, murmurs, or rubs. No pulse deficits. Respiratory: Respirations even and unlabored. No increased work of breathing. Talking in full sentences MS/ Extremity: Pulses equal, no cyanosis. Neurovascular intact. Full, normal range of motion. Neuro: Awake and alert, GCS 15, oriented to person, place, time, and situation. Moves all extremities. Normal gait. 16:08 Skin: injury, large hematoma to right lateral thigh. Vital Signs: 13:36 BP 174 / 111; Pulse 72; Resp 20; Temp 97.0; Pulse Ox 100% ; Pain 10/10; mb8 15:02 BP 195 / 92; Pulse 65; Resp 16; Pulse Ox 97% on R/A; mb8 15:50 BP 185 / 98; Pulse 62; Resp 16; Temp 98; Pulse Ox 100% ; Pain 2/10; mb8 [place] Coma Score: 13:35 Eye Response: spontaneous(4). Verbal Response: oriented(5). Motor Response: obeys mb8 commands(6). Total: 15. Trauma Score (Adult): 13:35 Eye Response: spontaneous(1); Verbal Response: oriented(1); Motor Response: obeys mb8 commands(2); Systolic BP: > 89 mm Hg(4); Respiratory Rate: 10 to 29 per min(4); Diogenes Score: 15; Trauma Score: 12 MDM: 13:39 Patient medically screened. [facility] 16:08 Data reviewed: vital signs, nurses notes. Data interpreted: Pulse oximetry: on room air kb is 100 %. Interpretation: normal. Counseling: I had a detailed discussion with the patient and/or guardian regarding: the historical points, exam findings, and any diagnostic results supporting the discharge/admit diagnosis, radiology results, the need for outpatient follow up, a family practitioner, a orthopedic surgeon, to return to the emergency department if symptoms worsen or persist or if there are any questions or concerns that arise at home. 16:10 ED course: Pt has tenderness to area of hematoma only. x-rays do not show fracture. Pt kb able to ambulate without distress. Pedal pulse present with normal sensation. Pt given return precautions. 09/08 13:40 Order name: Femur Right XRAY; Complete Time: 14:51 kb 09/08 13:42 Order name: Hip Right 2 View XRAY; Complete Time: 14:51 kb 09/08 14:03 Order name: Ned Wrap; Complete Time: 14:03 mb9 09/08 14:03 Order name: Ice pack; Complete Time: 14:03 mb9 Administered Medications: No medications were administered Disposition Summary: 09/08/22 15:43 Discharge Ordered Location: Home kb Condition: Stable kb Diagnosis - Hematoma right thigh kb Followup: kb - With: Emergency Department - When: As needed - Reason: Worsening of condition Followup: kb - With: Private Physician - When: 2 - 3 days - Reason: Recheck today's complaints, Continuance of care, Re-evaluation by your physician Discharge Instructions: - Discharge Summary Sheet kb - Hematoma, [id number] kb Forms: - Medication Reconciliation Form kb - Thank You Letter kb - Antibiotic Education kb - Prescription Opioid Use kb Addendum: 09/13/2022 04:00 Co-signature as Attending Physician, Josh Joshi MD I agree with the assessment and c mcclendon plan of care. Signatures: Dispatcher [employer] EDMS Pili Berry, MASH PREPARATORY OPERATOR-C MASH PREPARATORY OPERATOR-Ckb Josh Joshi MD MD cha Bates, Michael, RN RN mb8 Jolene Noriega, RN RN mb9 Corrections: (The following items were deleted from the chart) 09/08 16:11 16:10 ED course: Pt has tenderness to area of hematoma only. x-rays do not show kb fracture. Pt able to ambulate without distress. Pedal pulse present with normal sensation. kb
--- NOTE | 2022-09-08 15:43 | ER ---
Nurse's Notes [facility] Name: Stephanie Thao Age: 77 yrs Sex: Female : 1945 Arrival Date: 09/08/2022 Time: 13:31 Bed 3 Private MD: Diagnosis: Hematoma right thigh Presentation: 09/08 13:31 Chief complaint: Patient states: fell around 1130 today while carrying a heavy object. mb8 Patient was ambulatory after the fall. Right hip swelling noted. Care prior to arrival: None. Mechanism of Injury: Fall from standing position. Activity prior to arrival: None. 13:31 Acuity: MADY 3 mb8 13:31 Method Of Arrival: EMS: [facility] mb8 13:36 Coronavirus screen: Vaccine status: Patient reports receiving the 2nd dose of the covid mb8 vaccine. Ebola Screen: Patient negative for fever greater than or equal to 101.5 degrees Fahrenheit, and additional compatible Ebola Virus Disease symptoms Patient denies exposure to infectious person. Patient denies travel to an Ebola-affected area in the 21 days before illness onset. Initial Sepsis Screen: Does the patient meet any 2 criteria? No. Patient's initial sepsis screen is negative. Does the patient have a suspected source of infection? No. Patient's initial sepsis screen is negative. Risk Assessment: Do you want to hurt yourself or someone else? Patient reports no desire to harm self or others. Onset of symptoms was September 08, 2022 at 11:30. Trauma Activation: Not Applicable Physician: ED Physician; Name: ; Notified At: ; Arrived At: Physician: General Surgeon; Name: ; Notified At: ; Arrived At: Physician: Radiology; Name: ; Notified At: ; Arrived At: Physician: Respiratory; Name: ; Notified At: ; Arrived At: Physician: Lab; Name: ; Notified At: ; Arrived At: Historical: - Allergies: 13:33 Macrobid; mb8 - PMHx: 13:33 bowel obstruction; diabetes mellitus; Myocardial infarction; mb8 - PSHx: 13:33 Cholecystectomy; Heart Stents; hysterectomy; mb8 - Social history:: Smoking status: Patient denies any tobacco usage or history of. Screenin:34 Abuse screen: Denies threats or abuse. Denies injuries from another. Tuberculosis mb8 screening: No symptoms or risk factors identified. Primary Survey: 13:34 NO uncontrolled hemorrhage observed. A: The client is awake and alert. The airway is mb8 patent. Breathing/Chest: Spontaneous respiratory effort, equal unlabored respirations, breath sounds clear bilaterally, regular pattern, symmetrical chest rise and fall. Circulation: No external hemorrhage present. Regular and strong central pulse, skin warm/dry/normal color. Disability Pupils are equal, round, reactive to light and accommodation. Client is alert. Exposure/Environment: All clothing and personal items were removed. Forensic evidence collection is not deemed to be indicated at this time. Items placed in patient belonging bag. There is no evidence of uncontrolled external bleeding. Obvious injury(ies) are noted at this time: swelling to right hip A warming method has been applied: A warm blanket has been provided to the patient. 13:38 Reassessment. mb8 Assessment: 13:33 General: Appears uncomfortable, Behavior is calm, cooperative, appropriate for age. mb8 Pain: Complains of pain in right hip. 15:03 Reassessment: No changes from previously documented assessment. Patient and/or family mb8 updated on plan of care and expected duration. Pain level reassessed. Patient is alert, oriented x 3, equal unlabored respirations, skin warm/dry/pink. Vital Signs: 13:36 BP 174 / 111; Pulse 72; Resp 20; Temp 97.0; Pulse Ox 100% ; Pain 10/10; mb8 15:02 BP 195 / 92; Pulse 65; Resp 16; Pulse Ox 97% on R/A; mb8 15:50 BP 185 / 98; Pulse 62; Resp 16; Temp 98; Pulse Ox 100% ; Pain 2/10; mb8 [place] Coma Score: 13:35 Eye Response: spontaneous(4). Verbal Response: oriented(5). Motor Response: obeys mb8 commands(6). Total: 15. Trauma Score (Adult): 13:35 Eye Response: spontaneous(1); Verbal Response: oriented(1); Motor Response: obeys mb8 commands(2); Systolic BP: > 89 mm Hg(4); Respiratory Rate: 10 to 29 per min(4); Diogenes Score: 15; Trauma Score: 12 ED Course: 13:31 Patient arrived in ED. mb8 13:33 Triage completed. mb8 13:34 Patient has correct armband on for positive identification. Fall risk band placed. mb8 Placed in gown. Bed in low position. Call light in reach. Side rails up X2. 13:34 Patient maintains SpO2 saturation greater than 95% on room air. mb8 13:35 Pili Berry FNP-C is PHCP. kb 13:35 Josh Joshi MD is Attending Physician. kb 13:37 Arm band placed on. mb8 13:38 Thermoregulation: warm blanket given to patient. mb8 13:38 No provider procedures requiring assistance completed. mb8 13:59 Juan Pablo Zurita, RN is Primary Nurse. mb8 14:07 Femur Right XRAY In Process Unspecified. EDMS 14:07 Hip Right 2 View XRAY In Process Unspecified. EDMS 15:50 Patient did not have IV access during this emergency room visit. mb8 Administered Medications: No medications were administered Medication: 13:35 VIS not applicable for this client. mb8 Outcome: 15:43 Discharge ordered by MD. kb 16:07 Discharged to home via wheelchair. mb8 16:07 Condition: stable 16:07 Discharge instructions given to patient, Instructed on discharge instructions, follow up and referral plans. Demonstrated understanding of instructions, follow-up care, medications. 16:07 Patient left the ED. mb8 Signatures: Dispatcher [employer] EDMS Pili Berry FNP-C FNP-Juan Pablo Rios, RN RN mb8 Corrections: (The following items were deleted from the chart) 13:39 13:36 Pulse 72bpm; Resp 20bpm; Pulse Ox 100%; Temp 97.0F; Pain 10/10; mb8 mb8
[2022-09-08 16:14] VITALS: BP 185/98; TEMP 98; O2SAT 100
== END 2022-09-08 16:07 | disposition home or self-care (01) ==
LOC: ER 13:28
DX: S70.11XA Contusion of right thigh, initial encounter (principal)
CPT/HCPCS: 99284

== ENCOUNTER 2023-10-24 14:55 | Inpatient (IN) | payer OTHER ==
--- OUTSIDE RECORDS SUMMARY | 2023-10-24 15:25 | XMS REPORT | Continuity of Care Document ---
:1945 Author Organization [facility] t Address [address] [place] [address] [address] [place] [address] Care Team Providers Name Role Phone Lomeli, Rj Arnold Attending Clinician Unavailable Payers Payer Name Policy Type Policy Number Effective Date Expiration Date S evi [facility] [employer] 1 [id number] 2020 Common TRS/ERS MCR PPO 00:00:00 [facility] Problems Condition Condition Condition Status Onset Resolution Last Treating Co mments Source Name Details Category Date Date Treatment Clinician Date [id number] Type 2 [place] [id number] diabetes Spirit mellitus - [facility]I with other diabetic [facility] kidney Medical complicati Center on [id number] Vitamin D Problem Comm on deficiency Spirit [facility] [id number] Constipati Problem Com mon on, Spirit unspecifie - CHI d constipati [facility] on type Medical [place] [id number] Mixed Problem Common hyperlipid Spirit emia [facility] [id number] Stented Problem Commo n coronary Spirit artery - CHI [facility] [id number] Memory Problem Common change 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 Spirit athy - CHI associated St with type [facility] 2 diabetes Medica l mellitus Center [id number] Essential Problem Comm on hypertensi Spirit on - [facility] [id number] Asymptomat Problem Co mmon ic Spirit hypertensi - CHI ve urgency [facility] [id number] 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 Social History Social Habit Start Date Stop Date Quantity Comments Source History of Tobacco Use Co mmon [facility] Sex Assigned At Com mon [facility] Smoking Status Start Date Stop Date Source Never Smoker [facility] Medications Ordered Filled Start Stop Current Ordering Indication Dosage Frequency Signature Comments Components Source Medication Medication Date Date Medication? Clinician (SIG) Name Name Vitamin D3 Vitamin D3 No 1{capsu Vitamin D3 89838 UNIT 78144 UNIT 9-21 le} 83191 UNIT 00:00: 00 Vitamin D3 Vitamin D3 2022-0 No 1{capsu Vitamin D3 10067 UNIT 74227 UNIT 9-21 le} 84744 UNIT 00:00: 00 Vitamin D3 Vitamin D3 2022-0 No 1{capsu Vitamin D3 87470 UNIT 49325 UNIT 9-21 le} 54557 UNIT 00:00: 00 Vitamin D3 Vitamin D3 2022-0 No 1{capsu Vitamin D3 57117 UNIT 18265 UNIT 9-21 le} 37313 UNIT 00:00: 00 Vitamin D3 Vitamin D3 2022-0 No 1{capsu Vitamin D3 81914 UNIT 99639 UNIT 9-21 le} 82307 UNIT 00:00: 00 Lancets - Lancets - 2022-0 No Lancets - -16 00:00: 00 Accu-Chek Accu-Chek 0 No QD Accu-Chek 3-16 00:00: 00 Accu-Chek Accu-Chek 2023-0 No QD Accu-Chek 3-16 00:00: 00 Lancets - Lancets - 2023-0 No Lancets - 3-16 00:00: 00 Accu-Chek Accu-Chek 2023-0 No QD Accu-Chek 3-16 00:00: 00 Lancets - Lancets - 2023-0 No Lancets - 3-16 00:00: 00 Accu-Chek Accu-Chek 2023-0 No QD Accu-Chek 3-16 00:00: 00 Lancets - Lancets - 3-0 No Lancets - 3-16 00:00: 00 Lancets - Lancets - 2023-0 No Lancets - 3-16 00:00: 00 Accu-Chek Accu-Chek 3-0 No QD Accu-Chek 3-16 00:00: 00 Lancets - Lancets - 3-0 No Lancets - 3-16 00:00: 00 Accu-Chek Accu-Chek 3-0 No QD Accu-Chek 3-16 00:00: 00 Tradjenta 5 Tradjenta 5 2021-0 No 1{table QD Tradjenta MG MG 9- t} 5 MG 00:00: 00 Fluconazole Fluconazole 2021-0 2022- No 1{table Fluconazol 150 MG 150 MG 8 08-04 t} e 150 MG 00:00: 00:00 00 :00 glipiZIDE glipiZIDE 2021-0 No 1{table BID glipiZIDE ER 5 MG ER 5 MG 3-02 t_with_ ER 5 MG 00:00: food} 00 Trulicity Trulicity 2021- No Trulicity 1.5mg/0.5ml 1.5mg/0.5ml 01-19 1.5mg/0.5m 00:00: 00:00 l 00 :00 Trulicity Trulicity 0 2021- No Trulicity 1.5mg/0.5ml 1.5mg/0.5ml 01-1930 1.5mg/0.5m 00:00: 00:00 l 00 :00 Trulicity Trulicity 0 2021- No Trulicity 1.5mg/0.5ml 1.5mg/0.5ml 01-1930 1.5mg/0.5m 00:00: 00:00 l 00 :00 Trulicity Trulicity 0 2- No Trulicity 1.5mg/0.5ml 1.5mg/0.5ml 01-1930 1.5mg/0.5m 00:00: 00:00 l 00 :00 Trulicity Trulicity 0 2021- No Trulicity 1.5mg/0.5ml 1.5mg/0.5ml 01-19 1.5mg/0.5m 00:00: 00:00 l 00 :00 glipiZIDE glipiZIDE 0 No 1{table QD glipiZIDE ER 5 MG [...] % as_need ed} Probiotic Probiotic No Probiotic Memantine Memantine No 1{table BID Memantine HCl 10 MG HCl 10 MG t} HCl 10 MG Glimepiride Glimepiride No Glimepirid 4 MG 4 MG e 4 MG Repatha Repatha No Repatha 140mg/ml 140mg/ml 140mg/ml Gabapentin Gabapentin No 1{capsu QD Gabapentin 600 MG 600 MG le_at_b 600 MG edtime} Lidocaine 5 Lidocaine 5 No Lidocaine % % 5 % Ezetimibe Ezetimibe No 1{table QD Ezetimibe 10 [...] MG HCl 10 MG glipiZIDE glipiZIDE No 1{table BID glipiZIDE ER 5 MG ER 5 MG t_with_ ER 5 MG food} Losartan Losartan No Losartan Potassium Potassium Potassium 25 MG 25 MG 25 MG Tradjenta 5 Tradjenta 5 No 1{table QD Tradjenta MG MG t} 5 MG Tylenol 8 Tylenol 8 No Tylenol 8 Hour Hour Hour Arthritis Arthritis Arthritis Pain Pain Pain Gabapentin Gabapentin No Gabapentin 300 MG 300 MG 300 MG Lidocaine 5 Lidocaine 5 No 1{appli TID Lidocaine % % cation_ 5 % as_need ed} Losartan Losartan No 1{table QD Losartan Potassium Potassium t} Potassium 25 MG 25 MG 25 MG Probiotic Probiotic No Probiotic Tradjenta 5 Tradjenta 5 No 1{table QD Tradjenta MG MG t} 5 MG Metoprolol Metoprolol No Metoprolol Succinate Succinate Succinate ER 25 MG ER 25 MG ER 25 MG Lidocaine 5 Lidocaine 5 No 1{appli TID Lidocaine % % cation_ 5 % as_need ed} Losartan Losartan No Losartan Potassium Potassium Potassium 25 MG 25 MG 25 MG Donepezil Donepezil No BID Donepezil HCl 10 MG HCl 10 MG HCl 10 MG glipiZIDE glipiZIDE No 1{table BID glipiZIDE ER 2.5 MG ER 2.5 MG t_with_ ER 2.5 MG food} Gabapentin Gabapentin No 1{capsu QD Gabapentin 600 MG 600 MG le_at_b 600 MG edtime} Ezetimibe Ezetimibe No 1{table QD Ezetimibe 10 MG 10 MG t} 10 MG Repatha Repatha No Repatha 140mg/ml 140mg/ml 140mg/ml Ezetimibe Ezetimibe No Ezetimibe 10 MG 10 MG 10 MG glipiZIDE glipiZIDE No glipiZIDE ER 5 MG ER 5 MG ER 5 MG Lidocaine 5 Lidocaine 5 No Lidocaine % % 5 % Probiotic Probiotic No Probiotic Losartan Losartan No 1{table QD Losartan Potassium Potassium t} Potassium 25 MG 25 MG 25 MG Glimepiride Glimepiride No Glimepirid 4 MG 4 MG e 4 MG Metoprolol Metoprolol No QD Metoprolol Succinate Succinate Succinate ER 25 MG ER 25 MG ER 25 MG Vitamin D Vitamin D No Vitamin D Tylenol 8 Tylenol 8 No Tylenol 8 Hour Hour Hour Arthritis Arthritis Arthritis Pain Pain Pain Gabapentin Gabapentin No Gabapentin 300 MG 300 MG 300 MG Aspirin 81 Aspirin 81 No 1{table QD Aspirin 81 81 MG 81 MG t} 81 MG Memantine Memantine No 1{table BID Memantine HCl 10 MG HCl 10 MG t} HCl 10 MG Gabapentin Gabapentin No 1{capsu QD Gabapentin 600 MG 600 MG le_at_b 600 MG edtime} Tradjenta 5 Tradjenta 5 No 1{table QD Tradjenta MG MG t} 5 MG Tradjenta 5 Tradjenta 5 No 1{table QD Tradjenta MG MG t} 5 MG Metoprolol Metoprolol No Metoprolol Succinate Succinate Succinate ER 25 MG ER 25 MG ER 25 MG Lidocaine 5 Lidocaine 5 No 1{appli TID Lidocaine % % cation_ 5 % as_need ed} Losartan Losartan No Losartan Potassium Potassium Potassium 25 MG 25 MG 25 MG Donepezil Donepezil No BID Donepezil HCl 10 MG HCl 10 MG HCl 10 MG glipiZIDE glipiZIDE No 1{table BID glipiZIDE ER 2.5 MG ER 2.5 MG t_with_ ER 2.5 MG food} Gabapentin Gabapentin No 1{capsu QD Gabapentin 600 MG 600 MG le_at_b 600 MG edtime} Ezetimibe Ezetimibe No 1{table QD Ezetimibe 10 MG 10 MG t} 10 MG Repatha Repatha No Repatha 140mg/ml 140mg/ml 140mg/ml Ezetimibe Ezetimibe No Ezetimibe 10 MG 10 MG 10 MG glipiZIDE glipiZIDE No glipiZIDE ER 5 MG ER 5 MG ER 5 MG Lidocaine 5 Lidocaine 5 No Lidocaine % % 5 % Probiotic Probiotic No Probiotic Losartan Losartan No 1{table QD Losartan Potassium Potassium t} Potassium 25 MG 25 MG 25 MG Glimepiride Glimepiride No Glimepirid 4 MG 4 MG e 4 MG Metoprolol Metoprolol No QD Metoprolol Succinate Succinate Succinate ER 25 MG ER 25 MG ER 25 MG Vitamin D Vitamin D No Vitamin D Tylenol 8 Tylenol 8 No Tylenol 8 Hour Hour Hour Arthritis Arthritis Arthritis Pain Pain Pain Gabapentin Gabapentin No Gabapentin 300 MG 300 MG 300 MG Aspirin 81 Aspirin 81 No 1{table QD Aspirin 81 81 MG 81 MG t} 81 MG Memantine Memantine No 1{table BID Memantine HCl 10 MG HCl 10 MG t} HCl 10 MG Gabapentin Gabapentin No 1{capsu QD Gabapentin 600 MG 600 MG le_at_b 600 MG edtime} Tradjenta 5 Tradjenta 5 No 1{table QD Tradjenta MG MG t} 5 MG Tradjenta 5 Tradjenta 5 No 1{table QD Tradjenta MG MG t} 5 MG Metoprolol Metoprolol No Metoprolol Succinate Succinate Succinate ER 25 MG ER 25 MG ER 25 MG Lidocaine 5 Lidocaine 5 No 1{appli TID Lidocaine % % cation_ 5 % as_need ed} Losartan Losartan No Losartan Potassium Potassium Potassium 25 MG 25 MG 25 MG Donepezil Donepezil No BID Donepezil HCl 10 MG HCl 10 MG HCl 10 MG glipiZIDE glipiZIDE No 1{table BID glipiZIDE ER 2.5 MG ER 2.5 MG t_with_ ER 2.5 MG food} Gabapentin Gabapentin No 1{capsu QD Gabapentin 600 MG 600 MG le_at_b 600 MG edtime} Ezetimibe Ezetimibe No 1{table QD Ezetimibe 10 MG 10 MG t} 10 MG Repatha Repatha No Repatha 140mg/ml 140mg/ml 140mg/ml Ezetimibe Ezetimibe No Ezetimibe 10 MG 10 MG 10 MG glipiZIDE glipiZIDE No glipiZIDE ER 5 MG ER 5 MG ER 5 MG Lidocaine 5 Lidocaine 5 No Lidocaine % % 5 % Probiotic Probiotic No Probiotic Losartan Losartan No 1{table QD Losartan Potassium Potassium t} Potassium 25 MG 25 MG 25 MG Glimepiride Glimepiride No Glimepirid 4 MG 4 MG e 4 MG Metoprolol Metoprolol No QD Metoprolol Succinate Succinate Succinate ER 25 MG ER 25 MG ER 25 MG Vitamin D Vitamin D No Vitamin D Tylenol 8 Tylenol 8 No Tylenol 8 Hour Hour Hour Arthritis Arthritis Arthritis Pain Pain Pain Gabapentin Gabapentin No Gabapentin 300 MG 300 MG 300 MG Aspirin 81 Aspirin 81 No 1{table QD Aspirin 81 81 MG 81 MG t} 81 MG Memantine Memantine No 1{table BID Memantine HCl 10 MG HCl 10 MG t} HCl 10 MG Gabapentin Gabapentin No 1{capsu QD Gabapentin 600 MG 600 MG le_at_b 600 MG edtime} Tradjenta 5 Tradjenta 5 No 1{table QD Tradjenta MG MG t} 5 MG Tylenol 8 Tylenol 8 No Tylenol 8 Hour Hour Hour Arthritis Arthritis Arthritis Pain Pain Pain Metoprolol Metoprolol No Metoprolol Succinate Succinate Succinate ER 25 MG ER 25 MG ER 25 MG Lidocaine 5 Lidocaine 5 No Lidocaine % % 5 % Metoprolol Metoprolol No QD Metoprolol Succinate Succinate Succinate ER 25 MG ER 25 MG ER 25 MG Losartan Losartan No Losartan Potassium Potassium Potassium 25 MG 25 MG 25 MG glipiZIDE glipiZIDE No 1{table BID glipiZIDE ER 2.5 MG ER 2.5 MG t_with_ ER 2.5 MG food} Vitamin D Vitamin D No Vitamin D Ezetimibe Ezetimibe No Ezetimibe 10 MG 10 MG 10 MG Aspirin 81 Aspirin 81 No 1{table QD Aspirin 81 81 MG 81 MG t} 81 MG glipiZIDE glipiZIDE No glipiZIDE ER 2.5 MG ER 2.5 MG ER 2.5 MG glipiZIDE glipiZIDE No 1{table QD glipiZIDE XL 5 MG XL 5 MG t_with_ XL 5 MG food} glipiZIDE glipiZIDE No glipiZIDE ER 5 MG ER 5 MG ER 5 MG Tradjenta 5 Tradjenta 5 No Tradjenta MG MG 5 MG Repatha Repatha No Repatha 140mg/ml 140mg/ml 140mg/ml Probiotic Probiotic No Probiotic Memantine Memantine No Memantine HCl 10 MG HCl 10 MG HCl 10 MG Donepezil Donepezil No BID Donepezil HCl 10 MG HCl 10 MG HCl 10 MG Lidocaine 5 Lidocaine 5 No 1{appli TID Lidocaine % % cation_ 5 % as_need ed} Glimepiride Glimepiride No Glimepirid 4 MG 4 MG e 4 MG Gabapentin Gabapentin No Gabapentin 600 MG 600 MG 600 MG Memantine Memantine No 1{table BID Memantine HCl 10 MG HCl 10 MG t} HCl 10 MG Gabapentin Gabapentin No Gabapentin 300 MG 300 MG 300 MG Donepezil Donepezil No BID Donepezil HCl 10 MG HCl 10 MG HCl 10 MG Tradjenta 5 Tradjenta 5 No Tradjenta MG MG 5 MG Losartan Losartan No Losartan Potassium Potassium Potassium 25 MG 25 MG 25 MG Repatha Repatha No Repatha 140mg/ml 140mg/ml 140mg/ml glipiZIDE glipiZIDE No 1{table glipiZIDE ER 2.5 MG ER 2.5 MG t_with_ ER 2.5 MG food} Aspirin 81 Aspirin 81 No 1{table QD Aspirin 81 81 MG 81 MG t} 81 MG Gabapentin Gabapentin No 1{capsu QD Gabapentin 600 MG 600 MG le_at_b 600 MG edtime} Ezetimibe Ezetimibe No 1{table QD Ezetimibe 10 MG 10 MG t} 10 MG Memantine Memantine No 1{table BID Memantine HCl 10 MG HCl 10 MG t} HCl 10 MG Metoprolol Metoprolol No QD Metoprolol Succinate Succinate Succinate ER 25 MG ER 25 MG ER 25 MG Gabapentin Gabapentin No Gabapentin 600 MG 600 MG 600 MG Lidocaine 5 Lidocaine 5 No 1{appli TID Lidocaine % % cation_ 5 % as_need ed} Ezetimibe Ezetimibe No Ezetimibe 10 MG 10 MG 10 MG Tylenol 8 Tylenol 8 No Tylenol 8 Hour Hour Hour Arthritis Arthritis Arthritis Pain Pain Pain Losartan Losartan No 1{table QD Losartan Potassium Potassium t} Potassium 25 MG 25 MG 25 MG Vitamin D Vitamin D No Vitamin D Donepezil Donepezil No BID Donepezil HCl 10 MG HCl 10 MG HCl 10 MG Tradjenta 5 Tradjenta 5 No Tradjenta MG MG 5 MG Losartan Losartan No Losartan Potassium Potassium Potassium 25 MG 25 MG 25 MG Repatha Repatha No Repatha 140mg/ml 140mg/ml 140mg/ml glipiZIDE glipiZIDE No 1{table glipiZIDE ER 2.5 MG ER 2.5 MG t_with_ ER 2.5 MG food} Aspirin 81 Aspirin 81 No 1{table QD Aspirin 81 81 MG 81 MG t} 81 MG Gabapentin Gabapentin No 1{capsu QD Gabapentin 600 MG 600 MG le_at_b 600 MG edtime} Ezetimibe Ezetimibe No 1{table QD Ezetimibe 10 MG 10 MG t} 10 MG Memantine Memantine No 1{table BID Memantine HCl 10 MG HCl 10 MG t} HCl 10 MG Metoprolol Metoprolol No QD Metoprolol Succinate Succinate Succinate ER 25 MG ER 25 MG ER 25 MG Gabapentin Gabapentin No Gabapentin 600 MG 600 MG 600 MG Lidocaine 5 Lidocaine 5 No 1{appli TID Lidocaine % % cation_ 5 % as_need ed} Ezetimibe Ezetimibe No Ezetimibe 10 MG 10 MG 10 MG Tylenol 8 Tylenol 8 No Tylenol 8 Hour Hour Hour Arthritis Arthritis Arthritis Pain Pain Pain Losartan Losartan No 1{table QD Losartan Potassium Potassium t} Potassium 25 MG 25 MG 25 MG Vitamin D Vitamin D No Vitamin D Donepezil Donepezil No BID Donepezil HCl 10 MG HCl 10 MG HCl 10 MG Repatha Repatha No Repatha 140mg/ml 140mg/ml 140mg/ml Gabapentin Gabapentin No Gabapentin 600 MG 600 MG 600 MG Metoprolol Metoprolol No QD Metoprolol Succinate Succinate Succinate ER 25 MG ER 25 MG ER 25 MG Aspirin 81 Aspirin 81 No 1{table QD Aspirin 81 81 MG 81 MG t} 81 MG Gabapentin Gabapentin No 1{capsu QD Gabapentin 600 MG 600 MG le_at_b 600 MG edtime} glipiZIDE glipiZIDE No 1{table glipiZIDE ER 2.5 MG ER 2.5 MG t_with_ ER 2.5 MG food} Memantine Memantine No 1{table BID Memantine HCl 10 MG HCl 10 MG t} HCl 10 MG Tylenol 8 Tylenol 8 No Tylenol 8 Hour Hour Hour Arthritis Arthritis Arthritis Pain Pain Pain Ezetimibe Ezetimibe No 1{table QD Ezetimibe 10 MG 10 MG t} 10 MG Tradjenta 5 Tradjenta 5 No Tradjenta MG MG 5 MG Losartan Losartan No Losartan Potassium Potassium Potassium 25 MG 25 MG 25 MG Lidocaine 5 Lidocaine 5 No 1{appli TID Lidocaine % % cation_ 5 % as_need ed} Losartan Losartan No 1{table QD Losartan Potassium Potassium t} Potassium 25 MG 25 MG 25 MG Ezetimibe Ezetimibe No Ezetimibe 10 MG 10 MG 10 MG Vitamin D Vitamin D No Vitamin D Ezetimibe Ezetimibe No 1{table QD Ezetimibe 10 MG 10 MG t} 10 MG Repatha Repatha No Repatha 140mg/ml 140mg/ml 140mg/ml Lidocaine 5 Lidocaine 5 No 1{appli TID Lidocaine % % cation_ 5 % as_need ed} Aspirin 81 Aspirin 81 No 1{table QD Aspirin 81 81 MG 81 MG t} 81 MG glipiZIDE glipiZIDE No 1{table glipiZIDE ER 2.5 MG ER 2.5 MG t_with_ ER 2.5 MG food} Metoprolol Metoprolol No QD Metoprolol Succinate Succinate Succinate ER 25 MG ER 25 MG ER 25 MG Gabapentin Gabapentin No 1{capsu QD Gabapentin 600 MG 600 MG le_at_b 600 MG edtime} Vitamin D Vitamin D No Vitamin D Tradjenta 5 Tradjenta 5 No Tradjenta MG MG 5 MG Losartan Losartan No 1{table QD [...] HCl 10 MG t} HCl 10 MG Gabapentin Gabapentin No Gabapentin 600 MG 600 MG 600 MG Ezetimibe Ezetimibe No 1{table QD Ezetimibe 10 MG 10 MG t} 10 MG Repatha Repatha No Repatha 140mg/ml 140mg/ml 140mg/ml Lidocaine 5 Lidocaine 5 No 1{appli TID Lidocaine % % cation_ 5 % as_need ed} Aspirin 81 Aspirin 81 No 1{table QD Aspirin 81 81 MG 81 MG t} 81 MG glipiZIDE glipiZIDE No 1{table glipiZIDE ER 2.5 MG ER 2.5 MG t_with_ ER 2.5 MG food} Metoprolol Metoprolol No QD Metoprolol Succinate Succinate Succinate ER 25 MG ER 25 MG ER 25 MG Gabapentin Gabapentin No 1{capsu QD Gabapentin 600 MG 600 MG le_at_b 600 MG edtime} Vitamin D Vitamin D No Vitamin D Tradjenta 5 Tradjenta 5 No Tradjenta MG MG 5 MG Losartan Losartan No 1{table QD [...] HCl 10 MG t} HCl 10 MG Gabapentin Gabapentin No Gabapentin 600 MG 600 MG 600 MG Metoprolol Metoprolol No Metoprolol Succinate Succinate [...] MG/ML 140 MG/ML 00:00 140 MG/ML :00 Repatha Repatha 2021- No Repatha SureClick SureClick 11-30 SureClick 140 MG/ML 140 MG/ML 00:00 140 MG/ML :00 Vital Signs Vital Name Observation Time Observation Value Comments Source height 2023-05-04 09:20:00 64 [in_i] [facility] weight 2023-05-04 09:20:00 166.6 [lb_av] Common [facility] temperature 2023-05-04 09:20:00 97.8 [degF] [facility] bmi 2023-05-04 09:20:00 28.59 kg/m2 [facility] oximetry 2023-05-04 09:20:00 99 % [facility] respiratory rate 2023-05-04 09:20:00 18 /min Comm on [facility] blood pressure 2023-05-04 09:20:00 132 mm[Hg] Common [facility] - systolic [facility] blood pressure 2023-05-04 09:20:00 70 mm[Hg] Common [facility] - diastolic [facility] height 2023-05-04 09:20:00 64 [in_i] [facility] weight 2023-05-04 09:20:00 166.6 [lb_av] Common [facility] temperature 2023-05-04 09:20:00 97.8 [degF] Common [facility] bmi 2023-05-04 09:20:00 28.59 kg/m2 [facility] oximetry 2023-05-04 09:20:00 99 % [facility] respiratory rate 2023-05-04 09:20:00 18 /min Comm on [facility] blood pressure 2023-05-04 09:20:00 132 mm[Hg] Common [facility] - systolic [facility] blood pressure 2023-05-04 09:20:00 70 mm[Hg] Common [facility] - diastolic [facility] height 2023-01-19 08:40:00 64 [in_i] Common [facility] weight 2023-01-19 08:40:00 162.9 [lb_av] [facility] temperature 2023-01-19 08:40:00 97.3 [degF] Common [facility] bmi 2023-01-19 08:40:00 27.96 kg/m2 [facility] oximetry 2023-01-19 08:40:00 99 % [facility] respiratory rate 2023-01-19 08:40:00 18 /min Comm on [facility] blood pressure 2023-01-19 08:40:00 119 mm[Hg] Common [facility] - systolic [facility] blood pressure 2023-01-19 08:40:00 71 mm[Hg] Common [facility] - diastolic [facility] height 2022-10-20 10:00:00 64 [in_i] [facility] weight 2022-10-20 10:00:00 165.3 [lb_av] [facility] temperature 2022-10-20 10:00:00 97.3 [degF] Common [facility] bmi 2022-10-20 10:00:00 28.37 kg/m2 Common [facility] oximetry 2022-10-20 10:00:00 99 % Common [facility] respiratory rate 2022-10-20 10:00:00 18 /min Comm on [facility] blood pressure 2022-10-20 10:00:00 138 mm[Hg] Common [facility] - systolic [facility] blood pressure 2022-10-20 10:00:00 77 mm[Hg] Common [facility] - diastolic [facility] height 2022-07-21 09:00:00 64 [in_i] Common [facility] weight 2022-07-21 09:00:00 158.7 [lb_av] [facility] temperature 2022-07-21 09:00:00 97.4 [degF] Common [facility] bmi 2022-07-21 09:00:00 27.24 kg/m2 Common [facility] oximetry 2022-07-21 09:00:00 96 % Common [facility] respiratory rate 2022-07-21 09:00:00 16 /min Comm on [facility] blood pressure 2022-07-21 09:00:00 142 mm[Hg] Common [facility] - systolic [facility] blood pressure 2022-07-21 09:00:00 76 mm[Hg] Common [facility] - diastolic [facility] height 2022-06-22 09:00:00 64 [in_i] Common [facility] weight 2022-06-22 09:00:00 154 [lb_av] Common [facility] bmi 2022-06-22 09:00:00 26.43 kg/m2 [facility] height 2022-04-14 09:00:00 64 [in_i] Common S pirit [facility] weight 2022-04-14 09:00:00 159.9 [lb_av] Common [facility] - [facility] temperature 2022-04-14 09:00:00 97.1 [degF] Common S pirit [facility] bmi 2022-04-14 09:00:00 27.44 kg/m2 [facility] oximetry 2022-04-14 09:00:00 99 % Common S pirit [facility] respiratory rate 2022-04-14 09:00:00 18 /min Comm on [facility] blood pressure 2022-04-14 09:00:00 138 mm[Hg] Common [facility] - systolic [facility] blood pressure 2022-04-14 09:00:00 78 mm[Hg] Common [facility] - diastolic [facility] height 2022-04-14 09:00:00 64 [in_i] Common [facility] weight 2022-04-14 09:00:00 159.9 [lb_av] [facility] temperature 2022-04-14 09:00:00 97.1 [degF] Common [facility] bmi 2022-04-14 09:00:00 27.44 kg/m2 Common [facility] oximetry 2022-04-14 09:00:00 99 % Common [facility] respiratory rate 2022-04-14 09:00:00 18 /min Comm on [facility] blood pressure 2022-04-14 09:00:00 138 mm[Hg] Common [facility] - systolic [facility] blood pressure 2022-04-14 09:00:00 78 mm[Hg] Common [facility] - diastolic [facility] height 2022-01-19 15:00:00 64 [in_i] Common [facility] weight 2022-01-19 15:00:00 172.9 [lb_av] [facility] temperature 2022-01-19 15:00:00 97.7 [degF] Common S pirit [facility] bmi 2022-01-19 15:00:00 29.67 kg/m2 Common [facility] oximetry 2022-01-19 15:00:00 97 % [facility] respiratory rate 2022-01-19 15:00:00 17 /min Comm on [facility] blood pressure 2022-01-19 15:00:00 135 mm[Hg] Common [facility] - systolic [facility] blood pressure 2022-01-19 15:00:00 76 mm[Hg] Common [facility] - diastolic [facility] height 2021-10-21 14:50:00 64 [in_i] [facility] weight 2021-10-21 14:50:00 176.5 [lb_av] [facility] temperature 2021-10-21 14:50:00 97.6 [degF] [facility] bmi 2021-10-21 14:50:00 30.29 kg/m2 [facility] oximetry 2021-10-21 14:50:00 96 % [facility] respiratory rate 2021-10-21 14:50:00 16 /min Comm on [facility] blood pressure 2021-10-21 14:50:00 133 mm[Hg] [facility] - systolic [facility] blood pressure 2021-10-21 14:50:00 75 mm[Hg] Common [facility] diastolic [facility] Procedures This patient has no known procedures. Encounters Start End Encounter Admission Attending Care Care Encounter Source Date/Time Date/Time Type Type Clinicians Facility Department ID 2022-10-19 Outpatient Lomeli, [facility] [id number] Common 08:24:01 [place] [id number] [facility] 2022-07-21 Outpatient [place]omeli, [facility] [id number] Common 08:43:[address] [facility] 2021-12-15 Outpatient [place]om[facility], [facility] [id number] Common 14:06:[id number] [facility] 2021-12-15 Outpatient Lomeli, STLMLC STLMLC [id number] Common 13:49:[id number] [facility] 2021-12-15 Outpatient [place]omeli, STLMLC STLMLC [id number] Common 12:59:[id number] [facility] 2021-12-15 Outpatient [place]omeli, STLMLC STLMLC [id number] Common 12:54:[address] [facility] 2021-12-15 Outpatient Lomeli, STLMLC STLMLC [id number] Common 12:51:[id number] [facility] 2021-12-15 Outpatient Lomeli, STLMLC STLMLC [id number] Common 12:49:[id number] [facility] 2021-12-15 Outpatient Lomeli, STLMLC STLMLC [id number] Common 12:49:[id number] [facility] 2021-12-15 Outpatient Lomeli, STLMLC STLMLC [id number] Common 12:30:[id number] [facility] 2021-12-15 Outpatient STLMLC STLMLC [id number] Common 12:30:[id number] [facility] 2023-05-04 2023-05-04 OFFICE STLMLC STLMLC [id number] Co mmon 00:00:00 00:00:00 VISIT [facility] ESTAB PT - CHI LEVEL 4 [facility] 2023-05-04 2023-05-04 SUB ANNUAL STLMLC STLMLC [id number] Common 00:00:00 00:00:00 [facility] WELLNESS - CHI VISIT [facility] 2023-03-17 2023-03-17 (TEL) STLMLC STLMLC [id number] Co mmon 00:00:00 00:00:00 [facility] 2023-01-31 2023-01-31 (TEL) STLMLC STLMLC [id number] Co mmon 00:00:00 00:00:00 [facility] 2023-01-19 2023-01-19 OFFICE STLMLC STLMLC [id number] Co mmon 00:00:00 00:00:00 VISIT [facility] ESTAB PT - CHI LEVEL 4 [facility] 2022-11-15 2022-11-15 (TEL) STLMLC STLMLC [id number] Co mmon 00:00:00 00:00:00 [facility] 2022-11-10 2022-11-10 (TEL) STLMLC STLMLC [id number] Co mmon 00:00:00 00:00:00 [facility] 2022-10-20 2022-10-20 OFFICE STLMLC STLMLC [id number] Co mmon 00:00:00 00:00:00 VISIT [facility] ESTAB PT - CHI LEVEL 4 [facility] 2022-09-12 2022-09-12 (TEL) STLMLC STLMLC [id number] Co mmon 00:00:00 00:00:00 [facility] 2022-08-08 2022-08-08 (TEL) STLMLC STLMLC [id number] Co mmon 00:00:00 00:00:00 [facility] 2022-07-21 2022-07-21 OFFICE STLMLC STLMLC [id number] Co mmon 00:00:00 00:00:00 VISIT [facility] PT - CHI LEVEL 4 [facility] 2022-07-18 2022-07-18 (TEL) STLMLC STLMLC [id number] Co mmon 00:00:00 00:00:00 [facility] 2022-06-22 2022-06-22 OFFICE STLMLC STLMLC [id number] Co mmon 00:00:00 00:00:00 VISIT EST [facility]ir [facility] PT LEVEL 3 - [facility] 2022-06-20 2022-06-20 (TEL) STLMLC STLMLC [id number] Co mmon 00:00:00 00:00:00 [facility] 2022-04-14 2022-04-14 OFFICE STLMLC STLMLC [id number] Co mmon 00:00:00 00:00:00 VISIT [facility] PT - CHI LEVEL 4 [facility] 2022-04-14 2022-04-14 SUB ANNUAL STLMLC STLMLC [id number] Common 00:00:00 00:00:00 MCR [facility] VISIT [facility] 2022-04-05 2022-04-05 (TEL) STLMLC STLMLC [id number] Co mmon 00:00:00 00:00:00 [facility] 2022-03-24 2022-03-24 (TEL) STLMLC STLMLC [id number] Co mmon 00:00:00 00:00:00 [facility] 2022-01-19 2022-01-19 OFFICE STLMLC STLMLC [id number] Co mmon 00:00:00 00:00:[address] 2021-12-30 2021-12-30 (TEL) STLMLC STLMLC [id number] Co mmon 00:00:00 00:00:00 [facility] 2021-12-29 2021-12-29 (TEL) STLMLC STLMLC [id number] Co mmon 00:00:00 00:00:00 [facility] 2021-11-09 2021-11-09 (TEL) STLMLC STLMLC [id number] Co mmon 00:00:00 00:00:00 [facility] 2021-10-21 2021-10-21 OFFICE STLMLC STLMLC [id number] Co mmon 00:00:00 00:00:[address] 2021-08-02 2021-08-02 (TEL) STLMLC STLMLC [id number] Co mmon 00:00:00 00:00:00 [facility] 2021-06-17 2021-06-17 Outpatient STLMLC STLMLC [id number] Common 00:00:00 00:00:00 [facility] 2021-06-17 2021-06-17 Outpatient STLMLC STLMLC [id number] Common 00:00:00 00:00:00 [facility] 2021-04-29 2021-04-29 Outpatient STLMLC STLMLC [id number] Common 00:00:00 00:00:00 [facility] 2021-03-19 2021-03-19 Outpatient STLMLC STLMLC [id number] Common 00:00:00 00:00:00 [facility] 2021-03-18 2021-03-18 Outpatient STLMLC STLMLC [id number] Common 00:00:00 00:00:00 [facility] 2021-03-03 2021-03-03 Outpatient STLMLC STLMLC [id number] Common 00:00:00 00:00:00 [facility] 2021-03-02 2021-03-02 Outpatient STLMLC STLMLC [id number] Common 00:00:00 00:00:00 [facility] 2021-02-25 2021-02-25 Outpatient STLMLC STLMLC [id number] Common 00:00:00 00:00:00 [facility] 2021-02-25 2021-02-25 Outpatient STLMLC STLMLC [id number] Common 00:00:00 00:00:00 [facility] 2021-02-19 2021-02-19 Outpatient STLMLC STLMLC [id number] Common 00:00:00 00:00:00 [facility] 2021-01-09 2021-01-09 Outpatient STLMLC STLMLC [id number] Common 00:00:00 00:00:00 [facility] 2020-12-31 2020-12-31 Outpatient STLMLC STLMLC [id number] Common 00:00:00 00:00:00 [facility] Results Test Description Test Time Test Comments Results Result Comments Source CBC W/AUTO DIFF 2023-08-03 00:00:00 Test Item Value Reference Range Interpretation Comme nts NUCLEATED RBCS (test code 0.0 /100 WBC'S See_Comment [Automated message] The = 69497-5) system which ge nerated this result transmit alicia reference range: 0.0 /100 WBC'S. The reference range was not used to interpret th is result as normal/abnormal . ABSOLUTE EOSINOPHILS (test 0.08 K/UL See_Comment [Automated message] The code = 11542-6) system which generated this result transmit alicia reference range: 0.00-0.5 0 K/UL. The reference range was not used to interpret th is result as normal/abnormal . ABSOLUTE LYMPHOCYTES (test 1.51 K/UL See_Comment [Automated message] The code = 19636-4) system which generated this result transmit alicia reference range: 1.00-4.0 0 K/UL. The reference range was not used to interpret th is result as normal/abnormal . ABSOLUTE MONOCYTES (test 0.56 K/UL See_Comment [A utomated message] The code = 42606-7) system which generated this result transmit alicia reference range: 0.20-1.0 0 K/UL. The reference range was not used to interpret th is result as normal/abnormal . ABSOLUTE NEUTROPHILS (test 3.98 K/UL See_Comment [Automated message] The code = 56931-4) system which generated this result transmit alicia reference range: 1.50-7.5 0 K/UL. The reference range was not used to interpret th is result as normal/abnormal . BASOPHILS (test code = 0.5 % 17649-7) EOSINOPHILS (test code = 1.3 % 49913-9) HEMATOCRIT (test code = 38.6 % See_Comment [Au tomated message] The ) system which ge nerated this result transmit alicia reference range: 34.0-45. 0 %. The reference range was not used to interpret th is result as normal/abnormal . HEMOGLOBIN (test code = 13.1 G/DL See_Comment [Au tomated message] The 8-7) system which [employer] nerated this result transmit alicia reference range: 11.5-15. 5 G/DL. The reference range was not used to interpret th is result as normal/abnormal . LYMPHOCYTES (test code = 24.4 % 79649-9) MCH (test code = 68764-6) 30.0 PG See_Comment [ Automated message] The system which ge nerated this result transmit alicia reference range: 25.0-33. 0 PG. The reference range was not used to interpret th is result as normal/abnormal . MCHC (test code = 57330-6) 33.9 G/DL See_Comment [Automated message] The system which ge nerated this result transmit alicia reference range: 31.0-36. 0 G/DL. The reference range was not used to interpret th is result as normal/abnormal . MCV (test code = 92596-9) 88.5 fL See_Comment [ Automated message] The system which [employer] nerated this result transmit alicia reference range: 80.0-99. 0 fL. The reference range was not used to interpret th is result as normal/abnormal . MONOCYTES (test code = 9.1 % 00527-7) NEUTROPHILS (test code = 64.4 % 21621-6) PLATELET COUNT (test code 225 K/UL See_Comment [ Automated message] The = 51382-8) system which [employer] nerated this result transmit alicia reference range: 130-400 K/UL. The reference range was not used to interpret th is result as normal/abnormal . RBC (test code = 79592-1) 4.36 M/UL See_Comment [ Automated message] The system which [employer] nerated this result transmit alicia reference range: 3.80-5.4 0 M/UL. The reference range was not used to interpret th is result as normal/abnormal . RDW (test code = 69374-8) 12.4 % See_Comment [ Automated message] The system which [employer] nerated this result transmit alicia reference range: 11.5-15. 0 %. The reference range was not used to interpret th is result as normal/abnormal . WBC (test code = 50016-5) 6.2 K/UL See_Comment [ Automated message] The system which [employer] nerated this result transmit alicia reference range: 3.5-11.0 K/UL. The reference range was not used to interpret th is result as normal/abnormal . HEMOGLOBIN [id number] 00:00:00 Test Item Value Reference Range Interpretation Comments HEMOGLOBIN A1c (test 8.1 % See_Comment H [Autom ated message] The code = 4548-4) system which generated this result tra nsmitted reference range : 4.2-5.6 %. The referenc e range was not used to interpret this result as normal/abnormal . VITAMIN D, 25 [id number] 00:00:00 Test Item Value Reference Range Interpretation Comments VITAMIN D, 25 OH (test code = 18 NG/ML SEE BELOW NG/ML L 1988-3) LIPID PANEL WITH REFLEX DIRECT [id number] 00:00:00 Test Item Value Reference Range Interpretation Comments CALC LDL CHOL (test 159 MG/DL See_Comment H [Automa alicia message] code = 49888-4) The system [facility] generated this result transmit alicia reference range : <100 MG/DL. The reference range was not used to interpret this result as normal/abnormal . CHOLESTEROL (test code 254 MG/DL See_Comment H [Aut omated message] = 2093-3) The system [facility] generated this result transmit alicia reference range : <200 MG/DL. The reference range was not used to interpret this result as normal/abnormal . HDL CHOLESTEROL (test 40 MG/DL See_Comment [Auto mated message] code = 2085-9) The system [employer] generated this result transmit alicia reference range : >39 MG/DL. The refe rence range was not u sed to interpret th is result as normal/abnormal . RISK RATIO LDL/HDL 3.98 RATIO See_Comment H [Automat ed message] (test code = 04602-4) The sy stem which generated this result transmit alicia reference range : <3.22 RATIO. Th e reference range was not used to interpret this result as normal/abnormal . TRIGLYCERIDES (test 355 MG/DL See_Comment H [Automa alicia message] code = 2571-8) The system [employer] generated this result transmit alicia reference range : <150 MG/DL. The reference range was not used to interpret this result as normal/abnormal . ALBUMIN/CREATININE RATIO, RANDOM [id number] 00:00:00 Test Item Value Reference Range Interpretation Comments ALBUMIN, URINE, 6.8 MG/DL NOT ESTAB MG/DL RANDOM (test code = 25546-8) CALC ALBUMIN/CREAT, 72 MG/G See_Comment H [Automa alicia message] The RND (test code = system [facility] generated 59316-7) this result tra nsmitted reference range : <30 MG/G. The refer ence range was not u sed to interpret this result as normal/abnormal . CREATININE, URINE, 95.1 MG/DL NOT ESTAB MG/DL CONC. (test code = 2161-8) COMPREHENSIVE METABOLIC [id number] 00:00:00 Test Item Value Reference Range Interpretation Comments ALBUMIN (test code = 4.6 G/DL See_Comment [Autom ated message] 1751-7) The system [facility] generated this result transmit alicia reference range : 3.5-5.2 G/DL. T he reference range was not used to interpret this result as normal/abnormal . ALKALINE PHOSPHATASE 83 U/L See_Comment [Autom ated message] (test code = 6768-6) The sys tem which generated this result transmit alicia reference range : 40-142 U/L. The reference range was not used to interpret this result as normal/abnormal . BILIRUBIN, TOTAL 0.6 MG/DL See_Comment [Automated message] (test code = 1975-2) The sys tem which generated this result transmit alicia reference range : <=1.2 MG/DL. Th e reference range was not used to interpret this result as normal/abnormal . BUN (test code = 14 MG/DL See_Comment [Automated message] 3094-0) The system [facility] [employer] generated this result transmit alicia reference range : 8-23 MG/DL. The reference range was not used to interpret this result as normal/abnormal . CALCIUM (test code = 10.0 MG/DL See_Comment [Autom ated message] 03750-0) The system [facility] [employer] generated this result transmit alicia reference range : 8.5-10.5 MG/DL. The reference range was not used to interpret this result as normal/abnormal . CALC A/G RATIO (test 2.9 RATIO See_Comment H [Autom ated message] code = 1759-0) The system [employer] generated this result transmit alicia reference range : 1.0-2.6 RATIO. The reference range was not used to interpret this result as normal/abnormal . CALC BUN/CREAT (test 20 RATIO See_Comment [Autom ated message] code = 3097-3) The system [employer] generated this result transmit alicia reference range : 6-28 RATIO. The reference range was not used to interpret this result as normal/abnormal . CALC GLOBULIN (test 1.6 G/DL See_Comment L [Automa alicia message] code = 32298-7) The system [facility] generated this result transmit alicai reference range : 1.9-3.7 G/DL. T he reference range was not used to interpret this result as normal/abnormal . CARBON DIOXIDE (test 27 MEQ/L See_Comment [Autom ated message] code = 1963-8) The system [employer] generated this result transmit alicia reference range : 19-31 MEQ/L. Th e reference range was not used to interpret this result as normal/abnormal . CHLORIDE (test code 102 MEQ/L See_Comment [Automa alicia message] = 2074-0) The system [facility] generated this result transmit alicia reference range : 95-107 MEQ/L. T he reference range was not used to interpret this result as normal/abnormal . CREATININE (test 0.70 MG/DL See_Comment [Automated message] code = 2160-0) The system [employer] generated this result transmit alicia reference range : 0.60-1.30 MG/DL . The reference range was not used to interpret this result as normal/abnormal . eGFR (2020 CKD-EPI) 90 ML/MIN/1.73 See_Comment [Auto mated message] (test code = The system [facility] 70145-9) generated this result transmit alicia reference range : >60 ML/MIN/1.73. Th e reference range was not used to interpret this result as normal/abnormal . GLUCOSE (test code = 252 MG/DL See_Comment H [Autom ated message] 1558-6) The system [facility] generated this result transmit alicia reference range : 70-99 MG/DL. Th e reference range was not used to interpret this result as normal/abnormal . POTASSIUM (test code 4.1 MEQ/L See_Comment [Autom ated message] = 2823-3) The system [facility] generated this result transmit alicia reference range : 3.5-5.4 MEQ/L. The reference range was not used to interpret this result as normal/abnormal . PROTEIN, TOTAL (test 6.2 G/DL See_Comment [Autom ated message] code = 2885-2) The system [employer] generated this result transmit alicia reference range : 6.1-8.3 G/DL. T he reference range was not used to interpret this result as normal/abnormal . AST (test code = 16 U/L See_Comment [Automated message] 1919-8) The system [facility] [employer] generated this result transmit alicia reference range : 9-40 U/L. The reference range was not used to interpret this result as normal/abnormal . ALT (test code = 12 U/L See_Comment [Automated message] 1741-6) The system [employer] generated this result transmit alicia reference range : 5-40 U/L. The reference range was not used to interpret this result as normal/abnormal . SODIUM (test code = 140 MEQ/L See_Comment [Automa alicia message] 2951-2) The system [employer] generated this result transmit alicia reference range : 133-146 MEQ/L. The reference range was not used to interpret this result as normal/abnormal . CBC W/AUTO [id number] 00:00:00 Test Item Value Reference Range Interpretation Comments NUCLEATED RBCS (test 0.0 /100 WBC'S See_Comment [Aut omated message] code = 90256-2) The system [employer] generated this result transmit alicia reference range : 0.0 /100 WBC'S. The reference range was not used to interpret this result as normal/abnormal . ABSOLUTE EOSINOPHILS 0.10 K/UL See_Comment [Autom ated message] (test code = The system [employer] 67201-2) generated this result transmit alicia reference range : 0.00-0.50 K/UL. The reference range was not used to interpret this result as normal/abnormal . ABSOLUTE LYMPHOCYTES 1.88 K/UL See_Comment [Autom ated message] (test code = The system [facility] [employer] 13229-3) generated this result transmit alicia reference range : 1.00-4.00 K/UL. The reference range was not used to interpret this result as normal/abnormal . ABSOLUTE MONOCYTES 0.61 K/UL See_Comment [Automat ed message] (test code = The system [facility] [employer] 40157-8) generated this result transmit alicia reference range : 0.20-1.00 K/UL. The reference range was not used to interpret this result as normal/abnormal . ABSOLUTE NEUTROPHILS 4.00 K/UL See_Comment [Autom ated message] (test code = The system [employer] 94618-1) generated this result transmit alicia reference range : 1.50-7.50 K/UL. The reference range was not used to interpret this result as normal/abnormal . BASOPHILS (test code 0.6 % = 76305-8) EOSINOPHILS (test 1.5 % code = 38985-8) HEMATOCRIT (test 38.2 % See_Comment [Automated message] code = 47565-8) The system [employer] generated this result transmit alicia reference range : 34.0-45.0 %. Th e reference range was not used to interpret this result as normal/abnormal . HEMOGLOBIN (test 13.1 G/DL See_Comment [Automated message] code = 718-7) The system [facility] generated this result transmit alicia reference range : 11.5-15.5 G/DL. The reference range was not used to interpret this result as normal/abnormal . LYMPHOCYTES (test 28.3 % code = 05257-1) MCH (test code = 31.2 PG See_Comment [Automated message] 51254-3) The system [facility] generated this result transmit alicia reference range : 25.0-33.0 PG. T he reference range was not used to interpret this result as normal/abnormal . MCHC (test code = 34.3 G/DL See_Comment [Automate d message] 87973-8) The system [facility] generated this result transmit alicia reference range : 31.0-36.0 G/DL. The reference range was not used to interpret this result as normal/abnormal . MCV (test code = 91.0 fL See_Comment [Automated message] 08807-6) The system [facility] generated this result transmit alicia reference range : 80.0-99.0 fL. T he reference range was not used to interpret this result as normal/abnormal . MONOCYTES (test code 9.2 % = 11174-3) NEUTROPHILS (test 60.1 % code = 56331-6) PLATELET COUNT (test 246 K/UL See_Comment [Autom ated message] code = 24853-1) The system [facility] generated this result transmit alicia reference range : 130-400 K/UL. T he reference range was not used to interpret this result as normal/abnormal . RBC (test code = 4.20 M/UL See_Comment [Automated message] 63480-8) The system [facility] generated this result transmit alicia reference range : 3.80-5.40 M/UL. The reference range was not used to interpret this result as normal/abnormal . RDW (test code = 12.3 % See_Comment [Automated message] 85960-7) The system [facility] generated this result transmit alicia reference range : 11.5-15.0 %. Th e reference range was not used to interpret this result as normal/abnormal . WBC (test code = 6.7 K/UL See_Comment [Automated message] 89120-1) The system [facility] [employer] generated this result transmit alicia reference range : 3.5-11.0 K/UL. The reference range was not used to interpret this result as normal/abnormal . HEMOGLOBIN [id number] 00:00:00 Test Item Value Reference Range Interpretation Comments HEMOGLOBIN A1c (test 8.5 % See_Comment H [Autom ated message] The code = 4548-4) system which generated this result tra nsmitted reference range : 4.2-5.6 %. The referenc e range was not used to interpret this result as normal/abnormal . VITAMIN D, 25 [id number] 00:00:00 Test Item Value Reference Range Interpretation Comments VITAMIN D, 25 OH (test code = 32 NG/ML SEE BELOW NG/ML 1989-01) LIPID PANEL WITH REFLEX DIRECT [id number] 00:00:00 Test Item Value Reference Range Interpretation Comments CALC LDL CHOL (test 133 MG/DL See_Comment H [Automa alicia message] code = 85905-7) The system [employer] [facility] generated this result transmit alicia reference range : <100 MG/DL. The reference range was not used to interpret this result as normal/abnormal . CHOLESTEROL (test code 208 MG/DL See_Comment H [Aut omated message] = 2093-3) The system [facility] generated this result transmit alicia reference range : <200 MG/DL. The reference range was not used to interpret this result as normal/abnormal . HDL CHOLESTEROL (test 35 MG/DL See_Comment L [Auto mated message] code = 2085-9) The system [employer] generated this result transmit alicia reference range : >39 MG/DL. The refe rence range was not u sed to interpret th is result as normal/abnormal . RISK RATIO LDL/HDL 3.80 RATIO See_Comment H [Automat ed message] (test code = 30638-9) The sy stem which generated this result transmit alicia reference range : <3.22 RATIO. Th e reference range was not used to interpret this result as normal/abnormal . TRIGLYCERIDES (test 258 MG/DL See_Comment H [Automa alicia message] code = 2571-8) The system [employer] generated this result transmit alicia reference range : <150 MG/DL. The reference range was not used to interpret this result as normal/abnormal . ALBUMIN/CREATININE RATIO, RANDOM [id number] 00:00:00 Test Item Value Reference Range Interpretation Comments ALBUMIN, URINE, 7.6 MG/DL NOT ESTAB MG/DL RANDOM (test code = 54350-9) CALC ALBUMIN/CREAT, 63 MG/G See_Comment H [Automa alicia message] RND (test code = The system which 44044-7) generated this result transmitted ref erence range: <30 MG/G . The reference range was not used to interpr et this result as normal/abnormal . CREATININE, URINE, 120.3 MG/DL NOT ESTAB MG/DL CONC. (test code = 2161-8) COMPREHENSIVE METABOLIC [id number] 00:00:00 Test Item Value Reference Range Interpretation Comments ALBUMIN (test code = 4.5 G/DL See_Comment [Autom ated message] 1751-7) The system [employer] generated this result transmit alicia reference range : 3.5-5.2 G/DL. T he reference range was not used to interpret this result as normal/abnormal . ALKALINE PHOSPHATASE 112 U/L See_Comment [Autom ated message] (test code = 6768-6) The sys tem which generated this result transmit alicia reference range : 40-142 U/L. The reference range was not used to interpret this result as normal/abnormal . BILIRUBIN, TOTAL 0.4 MG/DL See_Comment [Automated message] (test code = 1975-2) The sys tem which generated this result transmit alicia reference range : <=1.2 MG/DL. Th e reference range was not used to interpret this result as normal/abnormal . BUN (test code = 25 MG/DL See_Comment H [Automated message] 3094-0) The system [employer] generated this result transmit alicia reference range : 8-23 MG/DL. The reference range was not used to interpret this result as normal/abnormal . CALCIUM (test code = 10.3 MG/DL See_Comment [Autom ated message] 61476-5) The system [employer] generated this result transmit alicia reference range : 8.5-10.5 MG/DL. The reference range was not used to interpret this result as normal/abnormal . CALC A/G RATIO (test 2.1 RATIO See_Comment [Autom ated message] code = 1759-0) The system [employer] generated this result transmit alicia reference range : 1.0-2.6 RATIO. The reference range was not used to interpret this result as normal/abnormal . CALC BUN/CREAT (test 37 RATIO See_Comment H [Autom ated message] code = 3097-3) The system [employer] generated this result transmit alicia reference range : 6-28 RATIO. The reference range was not used to interpret this result as normal/abnormal . CALC GLOBULIN (test 2.1 G/DL See_Comment [Automa alicia message] code = 42100-3) The system [facility] generated this result transmit alicia reference range : 1.9-3.7 G/DL. T he reference range was not used to interpret this result as normal/abnormal . CARBON DIOXIDE (test 28 MEQ/L See_Comment [Autom ated message] code = 1963-8) The system [employer] generated this result transmit alicia reference range : 19-31 MEQ/L. Th e reference range was not used to interpret this result as normal/abnormal . CHLORIDE (test code 105 MEQ/L See_Comment [Automa alicia message] = 5-0) The system [facility] generated this result transmit alicia reference range : 95-107 MEQ/L. T he reference range was not used to interpret this result as normal/abnormal . CREATININE (test 0.67 MG/DL See_Comment [Automated message] code = 2160-0) The system [employer] generated this result transmit alicia reference range : 0.60-1.30 MG/DL . The reference range was not used to interpret this result as normal/abnormal . eGFR (2020 CKD-EPI) 91 ML/MIN/1.73 See_Comment [Auto mated message] (test code = The system [facility] 33228-8) generated this result transmit alicia reference range : >60 ML/MIN/1.73. Th e reference range was not used to interpret this result as normal/abnormal . GLUCOSE (test code = 193 MG/DL See_Comment H [Autom ated message] 1558-6) The system [facility] generated this result transmit alicia reference range : 70-99 MG/DL. Th e reference range was not used to interpret this result as normal/abnormal . POTASSIUM (test code 3.9 MEQ/L See_Comment [Autom ated message] = 0543-3) The system [facility] generated this result transmit alciia reference range : 3.5-5.4 MEQ/L. The reference range was not used to interpret this result as normal/abnormal . PROTEIN, TOTAL (test 6.6 G/DL See_Comment [Autom ated message] code = 2885-2) The system [employer] generated this result transmit alicia reference range : 6.1-8.3 G/DL. T he reference range was not used to interpret this result as normal/abnormal . AST (test code = 12 U/L See_Comment [Automated message] 1920-8) The system [facility] generated this result transmit alicia reference range : 9-40 U/L. The reference range was not used to interpret this result as normal/abnormal . ALT (test code = 14 U/L See_Comment [Automated message] 1742-6) The system [facility] generated this result transmit alicia reference range : 5-40 U/L. The reference range was not used to interpret this result as normal/abnormal . SODIUM (test code = 144 MEQ/L See_Comment [Automa alicia message] 8901-2) The system [facility] generated this result transmit alicia reference range : 133-146 MEQ/L. The reference range was not used to interpret this result as normal/abnormal .
[2023-10-24 15:39] LABS: Absolute Lymphocytes (CBC) 1.4 K/uL (0.7-4.9); Hematocrit 39.7 % (36.0-45.0); Lymphocytes % 18.8 % (15.3-44.8); MCV 89.7 fL (80-100); Platelets 242 thou/uL (152-406); RBC Red Blood Cell Count 4.42 M/uL (3.86-4.86)
[2023-10-24] MEDS ORDERED: ASPIRIN EC 81 MG TAB PO ONE (15:40)
[2023-10-24] MEDS ORDERED: NITROGLYCERIN 1 GM PKT TD ONE (15:40)
[2023-10-24 15:48] LABS: Albumin 3.9 g/dL (3.4-5.0); Bilirubin Direct 0.2 mg/dL (0-0.2); Bilirubin Indirect, Calculated 0.6 mg/dL (0.2-0.8); Bilirubin Total 0.8 mg/dL (0.2-1.0); Potassium 3.6 mEq/L (3.5-5.1); Protein, Total 7.2 g/dL (6.4-8.2)
[2023-10-24 15:52] LABS: Troponin High Sensitivity 172.3 pg/mL (<58.9)
--- NOTE | 2023-10-24 16:28 | EDPHYS ---
Physician Documentation [facility] Name: Stephanie Thao Age: 78 yrs Sex: Female : 1945 Arrival Date: 10/24/2023 Time: 14:55 Bed 20 Private MD: ED Physician Darien Cruz HPI: 10/24 15:45 This 78 yrs old Female presents to ER via Ambulatory with complaints of Shortness Of rt Breath, Chest Pain. 15:45 Patient presents to the ED with intermittent chest pain and shortness of breath over rt the past 2 weeks, symptoms have been worsening. The patient attributes this to the cold weather, states that it is worse when she walks outside, gets better with rest. States that she has still some ongoing chest pressure at this time. Denies other acute complaints. She has reported history of having coronary disease with multiple stents and angioplasty. Symptoms are moderate in severity, no other aggravating relieving factors.. Historical: - Allergies: 15:06 Macrobid; cm10 - PMHx: 15:06 bowel obstruction; diabetes mellitus; Myocardial infarction; Hypertensive disorder; cm10 - PSHx: 15:06 Cholecystectomy; hysterectomy; Heart Stents; cm10 - Immunization history:: Adult Immunizations unknown. - Social history:: Smoking status: Patient denies any tobacco usage or history of. - Family history:: not pertinent. ROS: 15:45 Constitutional: Negative for fever, chills, and weight loss, Neck: Negative for injury, rt pain, and swelling, Abdomen/GI: Negative for abdominal pain, nausea, vomiting, diarrhea, and constipation, MS/Extremity: Negative for injury and deformity, Skin: Negative for injury, rash, and discoloration, Neuro: Negative for headache, weakness, numbness, tingling, and seizure, Psych: Negative for depression, anxiety, suicide ideation, homicidal ideation, and hallucinations, 15:45 Cardiovascular: Positive for chest pain, Negative for edema, 15:45 Respiratory: Positive for shortness of breath, Negative for cough, Exam: 15:45 Constitutional: This is a well developed, well nourished patient who is awake, alert, rt and in no acute distress. Head/Face: Normocephalic, atraumatic. Chest/axilla: Normal chest wall appearance and motion. Nontender with no deformity. No lesions are appreciated. Cardiovascular: Regular rate and rhythm with a normal S1 and S2. No gallops, murmurs, or rubs. Normal PMI, no JVD. No pulse deficits. Respiratory: Lungs have equal breath sounds bilaterally, clear to auscultation and percussion. No rales, rhonchi or wheezes noted. No increased work of breathing, no retractions or nasal flaring. Abdomen/GI: Soft, non-tender, with normal bowel sounds. No distension or tympany. No guarding or rebound. No evidence of tenderness throughout. Skin: Warm, dry with normal turgor. Normal color with no rashes, no lesions, and no evidence of cellulitis. MS/ Extremity: Pulses equal, no cyanosis. Neurovascular intact. Full, normal range of motion. Neuro: Awake and alert, GCS 15, oriented to person, place, time, and situation. Cranial nerves II-XII grossly intact. Motor strength 5/5 in all extremities. Sensory grossly intact. Cerebellar exam normal. Normal gait. Psych: Awake, alert, with orientation to person, place and time. Behavior, mood, and affect are within normal limits. 15:45 ECG was reviewed by the Attending Physician. Vital Signs: 15:04 BP 210 / 110; Pulse 95; Resp 18; Temp 97.5; Pulse Ox 98% on R/A; Weight 79.83 kg (R); cm10 Height 5 ft. 4 in. ; Pain 4/10; 15:30 BP 194 / 110; Pulse 84; Resp 17; Temp 97.6(O); Pulse Ox 99% on R/A; rs5 15:35 BP 176 / 84; Pulse 80; Resp 18; Pulse Ox 99% on R/A; rs5 15:04 Body Mass Index 30.21 (79.83 kg, 162.56 cm) cm10 15:04 Pain Scale: Adult cm10 MDM: 15:09 Patient medically screened. rt 16:29 Differential diagnosis: ACS, stable angina, unstable angina, pneumonia, pneumothorax. rt Data reviewed: vital signs, nurses notes. Consideration of Admission/Observation Patient was admitted/placed on observation. Management of patient was discussed with the following: Hospitalist: Agrees to admit. I considered the following discharge prescriptions or medication management in the emergency department Medications were administered in the Emergency Department. See MAR. Independent interpretation of the following test(s) in the Emergency Department X-Ray: My interpretation is No pneumothorax, interpretation of x-ray images. Test considered but Not performed: CT: Low suspicion for PE, CT angiogram not indicated. Care significantly affected by the following chronic conditions: Hypertension. Counseling: I had a detailed discussion with the patient and/or guardian regarding the historical points, exam findings, and any diagnostic results supporting the discharge/admit diagnosis, lab results, radiology results, the need for further work-up and treatment in the hospital. Response to treatment: the patient's symptoms have markedly improved after treatment. 10/24 15:19 Order name: Basic Metabolic Panel; Complete Time: 15:53 rt 10/24 15:19 Order name: CBC with Diff; Complete Time: 15:53 rt 10/24 15:19 Order name: LFT's; Complete Time: 15:53 rt 10/24 15:19 Order name: Magnesium; Complete Time: 15:53 rt 10/24 15:19 Order name: NT PRO-BNP; Complete Time: 15:53 rt 10/24 15:19 Order name: Troponin HS; Complete Time: 15:53 rt 10/24 15:19 Order name: XRAY Chest (1 view); Complete Time: 16:40 rt 10/24 15:19 Order name: EKG; Complete Time: 15:20 rt 10/24 15:19 Order name: Cardiac monitoring; Complete Time: 15:44 rt 10/24 15:19 Order name: EKG - Nurse/Tech; Complete Time: 15:32 rt 10/24 15:19 Order name: IV Saline Lock; Complete Time: 15:44 rt 10/24 15:19 Order name: Labs collected and sent; Complete Time: 15:44 rt 10/24 15:19 Order name: O2 Per Protocol; Complete Time: 15:44 rt 10/24 15:19 Order name: O2 Sat Monitoring; Complete Time: 15:44 rt EC:45 Rate is 81 beats/min. Rhythm is regular, Normal Sinus Rhythm with No ectopy. Left axis rt deviation noted. ND interval is normal. QRS interval is normal. QT interval is normal. No Q waves. Clinical impression: NSR w/ Non-specific ST/T Changes. Administered Medications: 15:25 Drug: Aspirin PO 243 mg PO once Route: PO; rs5 15:46 Follow up: Response: No adverse reaction rs5 15:25 Drug: Nitroglycerin Transdermal Ointment 2 % 1 inches Transdermal once Route: rs5 Transdermal; Site: anterior chest wall; 15:30 Follow up: Response: No adverse reaction; Pain is decreased; Blood pressure is lowered rs5 16:33 Drug: Enoxaparin Sub-Q 1 mg/kg Sub-Q once Route: Sub-Q; Site: left lower abdomen; rs5 16:33 Drug: Labetalol IV 10 mg IV at calculated rate once Route: IV; Rate: calculated rate; rs5 Site: right antecubital; Disposition Summary: 10/24/23 16:27 Hospitalization Ordered Notes: Hospitalization Status: Inpatient Admission rt Provider: Chase Omalley rt Location: Telemetry/MedSurg (observation) rt Condition: Fair rt Problem: new rt Symptoms: have improved rt Bed/Room Type: Standard rt Room Assignment: 225(10/24/23 17:06) bd Diagnosis - Subsequent non-ST elevation (NSTEMI) myocardial infarction rt - Hypertensive heart disease without heart failure rt Forms: - Medication Reconciliation Form rt - SBAR form rt - Leadership Thank You Letter rt Signatures: Dispatcher [employer] EDYeni Zaragoza Ryan, MD MD rt Toro Chu RN RN rs5 Yen Avery RN RN cm10 Corrections: (The following items were deleted from the chart) 17:06 16:27 rt bd
--- NOTE | 2023-10-24 16:28 | ER ---
Nurse's Notes [facility] Name: Stephanie Thao Age: 78 yrs Sex: Female : 1945 Arrival Date: 10/24/2023 Time: 14:55 Bed 20 Private MD: Diagnosis: Subsequent non-ST elevation (NSTEMI) myocardial infarction;Hypertensive heart disease without heart failure Presentation: 10/24 15:04 Chief complaint: Patient states: chest pain that has been intermittent over the last 2 cm10 weeks. PT states that the shortness of breath is worse when she is out in the cold. Pt also reports pain to the center of her chest onset today. Pt describes the pain as an aching pain that does not radiate. Coronavirus screen: Vaccine status: Patient reports receiving the 2nd dose of the covid vaccine. Client denies travel out of the [place] in the last 14 days. Ebola Screen: Patient denies travel to an Ebola-affected area in the 21 days before illness onset. No symptoms or risks identified at this time. Initial Sepsis Screen: Does the patient meet any 2 criteria? No. Patient's initial sepsis screen is negative. Does the patient have a suspected source of infection? No. Patient's initial sepsis screen is negative. Risk Assessment: Do you want to hurt yourself or someone else? Patient reports no desire to harm self or others. Onset of symptoms was October 24, 2023. 15:04 Method Of Arrival: Ambulatory cm10 15:04 Acuity: MADY 2 cm10 Triage Assessment: 15:10 General: Appears in no apparent distress. uncomfortable, Behavior is calm, cooperative. rs5 Pain: Complains of pain in chest Pain currently is 4 out of 10 on a pain scale. Quality of pain is described as aching. Respiratory: Respiratory: Reports shortness of breath on exertion, intermittently Onset: The symptoms/episode began/occurred gradually. Historical: - Allergies: 15:06 Macrobid; cm10 - PMHx: 15:06 bowel obstruction; diabetes mellitus; Myocardial infarction; Hypertensive disorder; cm10 - PSHx: 15:06 Cholecystectomy; hysterectomy; Heart Stents; cm10 - Immunization history:: Adult Immunizations unknown. - Social history:: Smoking status: Patient denies any tobacco usage or history of. - Family history:: not pertinent. Screenin:00 [facility] [place] ED Fall Risk Assessment (Adult) History of falling in the last 3 months, rs5 including since admission No falls in past 3 months (0 pts) Confusion or Disorientation No (0 pts) Intoxicated or Sedated No (0 pts) Impaired Gait No (0 pts) Mobility Assist Device Used No (0 pt) Altered Elimination No (0 pt) Score/Fall Risk Level 0 - 2 = Low Risk Oriented to surroundings, Maintained a safe environment. 15:00 Abuse screen: Denies threats or abuse. Nutritional screening: No deficits noted. rs5 Tuberculosis screening: No symptoms or risk factors identified. Assessment: 15:10 General: Appears in no apparent distress. uncomfortable, Behavior is calm, cooperative. rs5 Pain: Complains of pain in chest Pain does not radiate. Pain currently is 4 out of 10 on a pain scale. Quality of pain is described as aching, Pain began 2 hours ago. Is intermittent. Neuro: Level of Consciousness is awake, alert, obeys commands, Oriented to person, place, time, situation. Cardiovascular: Heart tones S1 S2 present Patient's skin is warm and dry. Rhythm is regular. Respiratory: Airway is patent Respiratory effort is even, unlabored, Respiratory pattern is regular, symmetrical, Breath sounds are clear bilaterally. GI: Abdomen is round non-distended, Bowel sounds present X 4 quads. Abd is soft and non tender X 4 quads. Patient currently denies nausea. : No signs and/or symptoms were reported regarding the genitourinary system. EENT: No signs and/or symptoms were reported regarding the EENT system. Derm: Skin is intact, Skin is pink, warm \T\ dry. Musculoskeletal: Range of motion: intact in all extremities. 15:30 Reassessment: Patient denies pain at this time. Patient states feeling better. Patient rs5 states symptoms have improved. 15:30 Reassessment: Patient and/or family updated on plan of care and expected duration. Pain rs5 level reassessed. Patient is alert, oriented x 3, equal unlabored respirations, skin warm/dry/pink. Cardiovascular: Heart tones S1 S2 present Rhythm is regular. Respiratory: Respiratory effort is even, unlabored, Respiratory pattern is regular, symmetrical, Denies shortness of breath. 16:35 Reassessment: No changes from previously documented assessment. rs5 Vital Signs: 15:04 BP 210 / 110; Pulse 95; Resp 18; Temp 97.5; Pulse Ox 98% on R/A; Weight 79.83 kg (R); cm10 Height 5 ft. 4 in. ; Pain 4/10; 15:30 BP 194 / 110; Pulse 84; Resp 17; Temp 97.6(O); Pulse Ox 99% on R/A; rs5 15:35 BP 176 / 84; Pulse 80; Resp 18; Pulse Ox 99% on R/A; rs5 15:04 Body Mass Index 30.21 (79.83 kg, 162.56 cm) cm10 15:04 Pain Scale: Adult cm10 ED Course: 14:56 Patient arrived in ED. rg4 14:57 Darien Cruz MD is Attending Physician. rt 15:00 Patient has correct armband on for positive identification. Fall risk band placed. rs5 Placed in gown. Bed in low position. Call light in reach. Side rails up X2. 15:06 Triage completed. cm10 15:06 Arm band placed on Patient placed in an exam room, on a stretcher. cm10 15:09 Toro Chu, CANDY is Primary Nurse. rs5 15:15 Inserted saline lock: 20 gauge in right antecubital area, using aseptic technique. rs5 Blood collected. 16:26 Chase Omalley MD is Hospitalizing Provider. rt 16:29 XRAY Chest (1 view) In Process Unspecified. EDMS 17:00 Patient admitted, IV remains in place. rs5 17:00 No provider procedures requiring assistance completed. rs5 Administered Medications: 15:25 Drug: Aspirin PO 243 mg PO once Route: PO; rs5 15:46 Follow up: Response: No adverse reaction rs5 15:25 Drug: Nitroglycerin Transdermal Ointment 2 % 1 inches Transdermal once Route: rs5 Transdermal; Site: anterior chest wall; 15:30 Follow up: Response: No adverse reaction; Pain is decreased; Blood pressure is lowered rs5 16:33 Drug: Enoxaparin Sub-Q 1 mg/kg Sub-Q once Route: Sub-Q; Site: left lower abdomen; rs5 16:33 Drug: Labetalol IV 10 mg IV at calculated rate once Route: IV; Rate: calculated rate; rs5 Site: right antecubital; Medication: 17:00 VIS not applicable for this client. rs5 Outcome: 16:27 Decision to Hospitalize by Provider. rt 17:00 Admitted to ER Hold. Please see [facility] for further documentation. rs5 17:00 Condition: stable 17:00 Instructed on the need for admit, Demonstrated understanding of instructions, 20:15 Patient left the ED. nw1 Signatures: Dispatcher [employer] EDMS Ulrich Beth rg4 Darien Cruz MD MD rt Toro Chu RN RN rs5 Yen Avery RN RN cm10 Shanna Zarate RN RN nw1 Corrections: (The following items were deleted from the chart) 10/25 15:09 10/24 15:47 General: Appears in no apparent distress. uncomfortable, Behavior is calm, rs5 cooperative, rs5 10/25 15:10/24 17:00 Respiratory: Airway is patent Respiratory effort is even, unlabored, Breath rs5 sounds are clear bilaterally. rs5 10/25 15:10/24 17:00 Pain: Denies pain. rs5 rs5 10/25 15:10/24 17:00 Cardiovascular: Heart tones S1 S2 present Rhythm is regular rs5 rs5
--- NOTE | 2023-10-24 16:36 | RAD REPORT ---
EXAM DESCRIPTION: Bela Single View10/24/2023 4:27 pm CLINICAL HISTORY: Chest pain COMPARISON: none FINDINGS: The lungs appear clear of acute infiltrate. The heart is mildly enlarged IMPRESSION: No acute abnormalities displayed
[2023-10-24] MEDS ORDERED: ENOXAPARIN 80 MG/0.8 ML SQ ONE (16:42)
[2023-10-24] MEDS ORDERED: LABETALOL 20 MG/4ML SYRINGE IV ONE (16:43)
--- NOTE | 2023-10-24 17:15 | P.HP ---
Certification for Inpatient Patient admitted to: Inpatient With expected LOS: >2 Midnights Patient will require the following post-hospital care: None Practitioner: I am a practitioner with admitting privileges, knowledge of patient current condition, hospital course, and medical plan of care. Services: Services provided to patient in accordance with Admission requirements found in Title 42 Section 412.3 of the Code of Federal Regulations Patient History Date of Service: 10/24/23 Reason for admission: NSTEMI History of Present Illness: 78-year-old female with history of pfc-ofxarce-bigykfnno diabetes, hypertension, CAD presents emergency department chief complaint of chest pain, shortness of breath. She reports intermittent chest pain and shortness of breath over the course of last 2 weeks which seem to be worse with exertion, today she had an episode which was worse than the previous episodes and seem to last longer. She reports about 30 minutes of chest pressure with associated shortness of breath after exertion prompting her to present to the emergency department. She was evaluated in the emergency department EKG was sinus rhythm with no ST elevation initial high sensitive troponin was 172.3 glucose 301 BNP 849 chest x- ray negative for acute findings, she was given aspirin, therapeutic Lovenox, Nitropaste. ED provider wishes to admit for NSTEMI. Patient reports last heart catheterization was in 2019, had a catheterization performed in 2017 as well between those 2 heart catheterization she had 4 stents she believes. No further stress or heart catheterization since 2019. - Past Medical/Surgical History -: Eyt-qkwfgil-bunfgtgwu diabetes -: Hypertension -: CAD -: Cholecystectomy -: Hysterectomy Psychosocial/ Personal History: Lives in independent living long-term [facility] - Family History Mother -: Diabetes - Social History Smoking Status: Current every day smoker Alcohol use: No CD- Drugs: No Caffeine use: Yes Place of Residence: Home Review of Systems 10-point ROS is otherwise unremarkable Respiratory: Shortness of Breath Cardiovascular: Chest Pain Physical Examination - Physical Exam General: Alert, In no apparent distress, Oriented x3 HEENT: Atraumatic, Mucous membr. moist/pink, Sclerae nonicteric Neck: Supple, 2+ carotid pulse no bruit Respiratory: Clear to auscultation bilaterally, Normal air movement Cardiovascular: Regular rate/rhythm, Normal S1 S2 Gastrointestinal: Normal bowel sounds Musculoskeletal: No tenderness Integumentary: No rashes Neurological: Normal speech, Normal strength at 5/5 x4 extr, Normal tone - Studies Laboratory Data (last 24 hrs) 10/24/23 10/24/23 15:20 15:20 WBC 7.50 Hgb 13.6 Hct 39.7 Plt Count 242 Sodium 140 Potassium 3.6 BUN 25 H Creatinine 0.98 Glucose 301 H Magnesium 2.0 Total Bilirubin 0.8 AST 13 L ALT 18 Alkaline Phosphatase 72 Assessment and Plan - Plan Assessment: NSTEMI Diabetes mellitus type [id number] with hyperglycemia Hypertension Plan: NSTEMI Cardiology consult Given aspirin, therapeutic Lovenox Continue beta justin, statin Chest pain much improved, was 10 out of 10, now 3 out of 10 Last heart catheterization 2019, also had cath in 2017 with total of 4 stents between caths Echocardiogram ordered, await further recs from cardiology Diabetes mellitus type 1zuk-npaftxn-uukgrwrxs with hyperglycemia ACHS accucheck, SSI Hypertension Losartan and metoprolol continued DVT PPX: Therapeutic Lovenox Code status: DNR Discharge Plan: Home Plan to discharge in: 48 Hours - Advance Directives Does patient have a Living Will: Yes Does patient have a Durable POA for Healthcare: Yes - Code Status/Comfort Care Code Status Assessed: Yes (DNR) Critical Care: No Time Spent Managing Pts Care (In Minutes): 70
--- NOTE | 2023-10-24 17:18 | P.CNS ---
Date of Consult: 10/24/23 Reason for Consult: Nonstemi, elevated troponin Requesting Physician: Chase Omalley Primary Care Provider: Dr. Lomeli Chief Complaint: SOB, CP History of Present Illness: Ms. Thao has been having stuttering chest pain for about two weeks. Today she was with a Friend and they walked a distance, had lunch, and then got out [employer] decorations to put out. Ms. Thao felt she needed to walk home to rest. Upon getting back to her [facility] apartment she was having 8- 10/10 substernal chest pain and shortness of breath. Usually if she lies down these s/s will resolve in one to two minutes. Today the pain did not resolve and she called EMS. Her initial troponin in the ED was 172. EKG shows NSR without ST elevation. She was given aspirin and lovenox in the ED. She is quite hypertensive at 204/86. 1 inch NTG paste at right anterior chest wall has largely relieved her chest pain to 3/10. Allergies nitrofurantoin [From Macrobid] Allergy (Mild, Verified 10/24/23 17:24) Home medications list reviewed: Yes Home Medications: Evolocumab [Repatha Sureclick] 140 mg SQ 10/24/23 Ezetimibe [Zetia*] 1 tab PO DAILY 10/24/23 Gabapentin 1 tab PO DAILY 10/24/23 Glipizide [Glipizide Xl] 1 tab PO EVERY 3RD DAY 10/24/23 Linagliptin [Tradjenta] 5 mg PO DAILY 10/24/23 Losartan Potassium 1 tab PO DAILY 10/24/23 Metoprolol Succinate [Toprol Xl*] 1 tab PO DAILY 10/24/23 - Past Medical/Surgical History Diabetic: Yes -: HTN -: NIDDM -: HLD -: Angioplasty with 4 stents -: hysterectomy -: cholecystectomy -: bowel resection - Family History Mother Medical History: Heart disease, Diabetes - Social History Smoking Status: Never smoker Alcohol use: No CD- Drugs: No Caffeine use: No Place of Residence: Home ([facility]) Review of Systems 10-point ROS is otherwise unremarkable Respiratory: As per HPI Cardiovascular: As per HPI Physical Examination General: Alert, In no apparent distress, Oriented x3 HEENT: Atraumatic, Normocephalic, PERRLA Neck: Supple, JVD distended Respiratory: Clear to auscultation bilaterally, Normal air movement Cardiovascular: No edema, Normal pulses, Regular rate/rhythm Capillary refill: <2 Seconds Gastrointestinal: Normal bowel sounds, Soft and benign Musculoskeletal: No clubbing, No contractures, No erythema Integumentary: No rashes Neurological: Normal speech, Normal tone, Sensation intact Lymphatics: No axilla or inguinal lymphadenopathy External genitalia: Deferred Rectal: Deferred Laboratory Data (last 24 hrs) 10/24/23 10/24/23 15:20 15:20 WBC 7.50 Hgb 13.6 Hct 39.7 Plt Count 242 Sodium 140 Potassium 3.6 BUN 25 H Creatinine 0.98 Glucose 301 H Magnesium 2.0 Total Bilirubin 0.8 AST 13 L ALT 18 Alkaline Phosphatase 72 - Problems (1) Non-STEMI (non-ST elevated myocardial infarction) Current Visit: Yes Status: Acute Plan: Continue to trend troponins, monitor creatinine/bun, electrolytes, BNP ASA Lovenox Atrovastatin telemetry (2) Hypertension associated with diabetes Current Visit: Yes Status: Acute Plan: Monitor blood pressure continue NTG paste q6h to keep systolic blood pressure <180 Continue metoprolol and losartan (3) Diabetes Current Visit: Yes Status: Acute Plan: follow medicine recommendation Qualifiers: Diabetes mellitus type: type 2 (4) Hyperlipidemia associated with type 2 diabetes mellitus Current Visit: Yes Status: Acute Plan: atorvastatin 40mg po daily, monitor lipids Physician Review: Patient Assessed, Agree with Above Assessment and Plan
[2023-10-24] MEDS ORDERED: MORPHINE 2 MG/ML SYR IV PRN (21:20)
[2023-10-24] MEDS ORDERED: HYDRALAZINE HCL 20 MG/ML VIAL IV PRN (21:20)
[2023-10-24] MEDS: INSULIN REGULAR (HUMAN) 100 UNIT/ML SQ SCH (21:20)
[2023-10-24] MEDS ORDERED: ONDANSETRON 4 MG/2 ML VIAL IV PRN (21:20)
[2023-10-24] MEDS: ATORVASTATIN 40 MG TAB PO SCH (21:20)
[2023-10-24] MEDS: GLIPIZIDE S.A. 5 MG TAB PO SCH (22:34)
[2023-10-25] MEDS: NA CHLORIDE 0.9% 1,000 ML IV SCH ×2 (00:36→22:14)
[2023-10-25 02:09] LABS: Absolute Lymphocytes (CBC) 1.9 K/uL (0.7-4.9); Hematocrit 33.2 % (36.0-45.0); Lymphocytes % 26.2 % (15.3-44.8); MCV 90.2 fL (80-100); MPV 8.1 fL (7.6-11.3); Platelets 198 thou/uL (152-406); RBC Red Blood Cell Count 3.69 M/uL (3.86-4.86)
[2023-10-25 02:29] LABS: Potassium 3.3 mEq/L (3.5-5.1)
[2023-10-25] MEDS ORDERED: HEPARIN/D5W 25,000 UNIT/500 ML BAG IV SCH (06:30)
[2023-10-25] MEDS: METOPROLOL XL 25 MG TAB PO SCH (06:32)
[2023-10-25 06:40] VITALS: BMI 28.3
[2023-10-25 07:28] LABS: Protime INR 1.06
[2023-10-25] MEDS: INSULIN REGULAR (HUMAN) 100 UNIT/ML SQ SCH ×4 (07:30→21:00)
[2023-10-25] MEDS ORDERED: GLIPIZIDE S.A. 5 MG TAB PO SCH (07:30)
[2023-10-25] MEDS: GLIPIZIDE S.A. 5 MG TAB PO SCH ×3 (07:30→16:30)
[2023-10-25] MEDS ORDERED: POTASSIUM CL SA 10 MEQ TAB PO ONE (08:00)
[2023-10-25] MEDS ORDERED: ENOXAPARIN 80 MG/0.8 ML SQ SCH (09:00)
[2023-10-25] MEDS ORDERED: METOPROLOL XL 25 MG TAB PO SCH (09:00)
[2023-10-25] MEDS ORDERED: LOSARTAN POTASSIUM 50 MG TABLET PO SCH ×2 (09:00)
[2023-10-25] MEDS: TRADJENTA 5 MG PO SCH (09:00)
[2023-10-25] MEDS: EZETIMIBE 10 MG TAB PO SCH (09:00)
--- NOTE | 2023-10-25 09:13 | P.PN ---
Date of Service: 10/25/23 Subjective: Did well overnight No further episodes of severe chest pain ROS: 10 point ROS as noted above, otherwise negative Physical exam GEN: Alert, oriented, NAD HEENT: Normal conjunctiva, sclera anicteric CV: Regular rate and rhythm, no edema Pulm: Nonlabored respirations on room air ABD: Soft, nontender, nondistended MSK: No joint tenderness Integumentary: No rashes Neuro: Normal speech, normal affect Vitals reviewed Assessment: NSTEMI Diabetes mellitus type [id number] with hyperglycemia Hypertension Plan: NSTEMI Given aspirin, started on heparin drip this morning given markedly elevated troponin Anticipate heart catheterization-patient is n.p.o. Continue beta justin, statin Troponin 172.3-8288.4-11,209.3 Chest pain much improved, was 10 out of 10, now 3 out of 10 Last heart catheterization 2019, also had cath in 2017 with total of 4 stents between caths Echocardiogram ordered, await further recs from cardiology Diabetes mellitus type [id number] with hyperglycemia ACHS accucheck, SSI Hypertension Losartan and metoprolol continued VTE: Heparin drip Code: DNR Dispo: 1 to 2 days Time Spent Managing Pts Care (In Minutes): 35
[2023-10-25] MEDS: ASPIRIN EC 81 MG TAB PO SCH (10:47)
[2023-10-25] MEDS ORDERED: LIDOCAINE 1% 20 ML MDV ONE (11:33)
[2023-10-25] MEDS ORDERED: VERAPAMIL HCL 10 MG/4 ML VIAL IV ONE (11:33)
[2023-10-25] MEDS ORDERED: MIDAZOLAM HCL 2 MG/2 ML INJ ONE (11:34)
[2023-10-25] MEDS ORDERED: HEPARIN 10,000 UNIT/10 ML VIAL IV ONE (11:35)
[2023-10-25] MEDS ORDERED: HEPARIN 5000 UNIT/ML 1 ML VIAL ONE (11:35)
[2023-10-25] MEDS ORDERED: HEPA 1000U/500MLS 2,000 UNIT/1,000 ML BAG IV ONE (11:36)
[2023-10-25] MEDS ORDERED: FENTANYL CITR 100 MCG/2 ML ONE (11:38)
[2023-10-25] MEDS ORDERED: NA CHLORIDE 0.9% 500 ML ONE (11:41)
--- NOTE | 2023-10-25 12:05 | P.PN ---
Subjective Date of Service: 10/25/23 Primary Care Provider: Dr. Lomeli Chief Complaint: SOB, CP Subjective: No new changes, NPO Review of Systems 10-point ROS is otherwise unremarkable Respiratory: As per HPI Cardiovascular: As per HPI Physical Examination - Vital Signs Temperature: 98.0 F Blood Pressure: 146/70 Pulse: 68 Respirations: 16 Pulse Ox (%): 96 - Physical Exam General: Alert, In no apparent distress, Oriented x3 HEENT: Atraumatic, Normocephalic Neck: Supple, 2+ carotid pulse no bruit, JVD not distended Respiratory: Clear to auscultation bilaterally, Normal air movement Cardiovascular: No edema, Normal pulses, Regular rate/rhythm Capillary refill: <2 Seconds Gastrointestinal: Normal bowel sounds, Soft and benign Musculoskeletal: No clubbing, No swelling Integumentary: No rashes Neurological: Normal speech, Normal tone Lymphatics: No axilla or inguinal lymphadenopathy External genitalia: Deferred Rectal: Deferred (feeling better, blood pressure markedly improved, however troponin markedly elevated) - Studies Laboratory Data (last 24 hrs) 10/24/23 10/24/23 15:20 15:20 WBC 7.50 Hgb 13.6 Hct 39.7 Plt Count 242 Sodium 140 Potassium 3.6 BUN 25 H Creatinine 0.98 Glucose 301 H Magnesium 2.0 Total Bilirubin 0.8 AST 13 L ALT 18 Alkaline Phosphatase 72 Assessment And Plan - Current Problems (Diagnosis) (1) Non-STEMI (non-ST elevated myocardial infarction) Current Visit: Yes Status: Acute Plan: Troponins markedly elevated overnight to 11,299.3 pt remains NPO, Heparin drip started, ASA 81mg with sip of water this am Will go to [employer] at 1200 (2) Hypertension associated with diabetes Current Visit: Yes Status: Acute Plan: Monitor blood pressure Continue metoprolol and losartan (3) Diabetes Current Visit: Yes Status: Acute Plan: follow medicine recommendation Qualifiers: Diabetes mellitus type: type 2 (4) Hyperlipidemia associated with type 2 diabetes mellitus Current Visit: Yes Status: Acute Plan: atorvastatin 40mg po daily, monitor lipids Discharge Plan: Home Plan to discharge in: 24 Hours Physician Review: Patient Assessed, Agree with Above Assessment and Plan
[2023-10-25] MEDS ORDERED: FAMOTIDINE 20 MG TAB ONE (12:43)
[2023-10-25] MEDS ORDERED: HYDRALAZINE HCL 20 MG/ML VIAL ONE (13:30)
[2023-10-25] MEDS ORDERED: ASPIRIN 325 MG TAB ONE (13:58)
[2023-10-25] MEDS ORDERED: CLOPIDOGREL 75 MG TABLET ONE (13:58)
--- NOTE | 2023-10-25 15:46 | OP ---
Date of Procedure: 10/25/2023 Surgeon: SARAH CARVALHO Procedures Performed: 1.Selective coronary angiogram. 2.Left heart catheterization. 3.PCI of severe proximal LAD stenosis, which is the culprit for the CA. I used 2.75 x 32 mm Synergy drug-eluting stent and the proximal part of the stent was postdilated using 3.0 x 8 mm NC balloon. Indication: Eyi-WG-upimljgiv myocardial infarction. Access: Right radial artery 6-Argentine closed with TR band. Anesthesia: The total sedation time was 50 minutes, used fentanyl and Versed. Complications: None. Bleeding: Less than 20 mL. Description Of Procedure: After risks, benefits, alternatives were explained, patient agreed to proc edure and signed informed consent. Patient was brought into cardiac catheterization laboratory, prep ped and draped in the usual sterile fashion and then I accessed right radial artery using pediatric m icropuncture kit, placed a 6-Argentine Slender sheath and took 5-Argentine [place] 4.0 catheter into the aort ic root over a J-wire, engaged the left main and then right coronary artery, took standard views and the catheter was pushed over the wire into the LV, measured the LVEDP. Pullback did not record any g radient. Then I gave systemic heparin to assure ACT level above 250 throughout the procedure. 600 m g of Plavix was given on the table and 325 mg of aspirin. I took a 6-Argentine EBU3.5 guide into the ao rtic root, engaged left main and took Runthrough wire into the left main and then the LAD, placed it distally and then using a 2.5 balloon, lesions were pre-dilated very well and then I placed 2.75 x 32 mm Synergy drug-eluting stent across very long stenotic area and then used a 3.0 x 8 mm NC balloon t o optimize the proximal part of the stent. Excellent angiographic results. No complication. Then I removed the wire and final angiogram was satisfactory. I removed the guide and the sheath, placed T R band with good hemostasis. Findings: 1.Left main; large, long and normal. 2.LAD; proximal diffuse stenosis ranging between 80% to 90% and then it becomes 99%, which is the cu lprit of the CA, status post successful PCI as above. Diagonal 1 branch has a stent that is patent a nd after the diagonal 1 branch, there is a focal 50% stenosis and then widely patent stent and distal to the stent, there is focal 60% stenosis, but the artery becomes very small. 3.Left circumflex; very small, about 1 mm or less, has proximal 70% stenosis, which was left alone. 4.RCA; very large and dominant, distal 30%, otherwise normal and very large vessel. 5.Normal LVEDP between 8 and 10 mmHg. Conclusion: 1.Severe proximal LAD stenosis, which is a culprit for the CA, status post successful PCI as above. 2.Moderate coronary artery disease elsewhere. Plan: Aspirin, Plavix, high-dose statin. Follow up with me in the office in 2 weeks postdischarge. To monitor the patient in the next 24 hours for any arrhythmia. SR/MODL Voice ID: [id number] Report ID: [id number]
[2023-10-25 16:07] VITALS: O2SAT 99
[2023-10-25] MEDS ORDERED: GABAPENTIN 300 MG CAP PO SCH (21:00)
[2023-10-25] MEDS: ATORVASTATIN 40 MG TAB PO SCH (21:00)
[2023-10-26 04:35] LABS: Absolute Lymphocytes (CBC) 0.9 K/uL (0.7-4.9); Hematocrit 34.1 % (36.0-45.0); Lymphocytes % 14.4 % (15.3-44.8); MCV 89.1 fL (80-100); MPV 7.9 fL (7.6-11.3); Platelets 177 thou/uL (152-406); RBC Red Blood Cell Count 3.82 M/uL (3.86-4.86)
[2023-10-26 04:51] LABS: Potassium 3.6 mEq/L (3.5-5.1)
[2023-10-26] MEDS: METOPROLOL XL 25 MG TAB PO SCH (05:17)
[2023-10-26] MEDS: GLIPIZIDE S.A. 5 MG TAB PO SCH (07:30)
[2023-10-26] MEDS: INSULIN REGULAR (HUMAN) 100 UNIT/ML SQ SCH ×3 (07:30→11:30)
--- NOTE | 2023-10-26 08:17 | ECHO ---
HEIGHT: 5 ft 4 in WEIGHT: 165 lb 3.2 oz DATE OF STUDY: 10/25/[address]: Jordan Augustine NP 2-DIMENSIONAL: YES M.MODE: YES DOPPLER: YES COLOR FLOW: YES TDS: PORTABLE: YES DEFINITY: BUBBLE STUDY: DIAGNOSIS: NON ST ELEVATION MYOCARDIAL INFARCTION CARDIAC HISTORY: CATHERIZATION: YES SURGERY: NO PROSTHETIC VALVE: NO PACEMAKER: NO MEASUREMENTS (cm) DIASTOLIC (NORMALS) SYSTOLIC (NORMALS) IVSd 1.0 (0.6-1.2) LA Diam 3.0 (1.9-4.0) LVEF 55% LVIDd 4.3 (3.5-5.7) LVIDs 3.1 (2.0-3.5) %FS 28% LVPWd 1.0 (0.6-1.2) Ao Diam 2.3 (2.0-3.7) 2 DIMENSIONAL ASSESSMENT: RIGHT ATRIUM: NORMAL LEFT ATRIUM: NORMAL RIGHT VENTRICLE: NORMAL LEFT VENTRICLE: NORMAL TRICUSPID VALVE: MILD TRICUSPID REGURGITATION MITRAL VALVE: MILD MITRAL REGURGITATION PULMONIC VALVE: MILD PULMONIC INSUFFICIENCY AORTIC VALVE: NORMAL PERICARDIAL EFFUSION: NONE AORTIC ROOT: NORMAL LEFT VENTRICULAR WALL MOTION: NORMAL DOPPLER/COLOR FLOW: SEE BELOW COMMENTS: 1. NORMAL LEFT VENTRICULAR EJECTION FRACTION 55-60% WITH NORMAL WALL MOTION 2. GRADE I DIASTOLIC DYSFUNCTION 3. MILD MITRAL REGURGITATION, TRICUSPID REGURGITATION, PULMONIC INSUFFICIENCY TECHNOLOGIST: LARRY LEAL
[2023-10-26] MEDS ORDERED: CLOPIDOGREL 75 MG TABLET PO SCH (09:00)
[2023-10-26] MEDS ORDERED: ASPIRIN 81 MG CHEWABLE TABLET PO SCH (09:00)
[2023-10-26] MEDS ORDERED: POTASSIUM CL SA 10 MEQ TAB PO ONE (09:00)
[2023-10-26] MEDS: TRADJENTA 5 MG PO SCH (09:00)
--- NOTE | 2023-10-26 09:29 | P.DS ---
Admission Date: 10/24/23 Discharge Date: 10/26/23 Primary Care Provider: Dr. Lomeli Disposition: ROUTINE DISCHARGE Discharge Condition: GOOD Reason for Admission: AMY, CP Consultations: Cardiology-Dr. Ya Procedures: Heart cath 09/25 Brief History of Present Illness: 78-year-old female with history of hjd-kwjrwxb-lxaifjmgk diabetes, hypertension, CAD presents emergency department chief complaint of chest pain, shortness of breath. She reports intermittent chest pain and shortness of breath over the course of last 2 weeks which seem to be worse with exertion, today she had an episode which was worse than the previous episodes and seem to last longer. She reports about 30 minutes of chest pressure with associated shortness of breath after exertion prompting her to present to the emergency department. She was evaluated in the emergency department EKG was sinus rhythm with no ST elevation initial high sensitive troponin was 172.3 glucose 301 BNP 849 chest x- ray negative for acute findings, she was given aspirin, therapeutic Lovenox, Nitropaste. ED provider wishes to admit for NSTEMI. Patient reports last heart catheterization was in 2019, had a catheterization performed in 2017 as well between those 2 heart catheterization she had 4 stents she believes. No further stress or heart catheterization since 2019. Hospital Course: Problem List NSTEMI secondary to severe CAD-99% proximal LAD stenosis S/P PCI Diabetes mellitus type [id number]-cjclirnvj with hyperglycemia Hypertension HLD Patient was admitted to the hospital for chest pain, NSTEMI, initial troponin was 172.3, it peaks at 12,831. During hospitalization patient had a heart catheterization performed which showed in the LAD proximal diffuse stenosis ranging from 80 to 90% and it becomes 99% which was the culprit of the VA, PCI was performed with a Synergy drug-eluting stent. Patient otherwise has moderate coronary artery disease. New prescription will be sent for clopidogrel 75 mg daily Continue taking aspirin 81 mg daily Continue other home medications Follow-up with PCP and cardiology in 1 to 2 weeks Vital Signs/Physical Exam: Temp Pulse Resp BP Pulse Ox 98.0 F 71 16 185/74 H 98 10/26/23 08:00 10/26/23 08:00 10/26/23 08:00 10/26/23 08:00 10/26/23 08:00 General: Alert, In no apparent distress, Oriented x3 HEENT: Atraumatic, PERRLA, EOMI Neck: Supple, JVD not distended Respiratory: Clear to auscultation bilaterally, Normal air movement Cardiovascular: Regular rate/rhythm, Normal S1 S2 Gastrointestinal: Normal bowel sounds, No tenderness Musculoskeletal: No tenderness Integumentary: No rashes Neurological: Normal speech, Normal tone, Normal affect Laboratory Data at Discharge: WBC 6.40 thou/uL (4.3-10.9) 10/26/23 04:02 Hgb 11.9 g/dL (12.0-15.0) L 10/26/23 04:02 Hct 34.1 % (36.0-45.0) L 10/26/23 04:02 Plt Count 177 thou/uL (152-406) 10/26/23 04:02 PT 11.7 SECONDS (9.5-12.5) 10/25/23 07:08 INR 1.06 10/25/23 07:08 APTT 31.7 SECONDS (24.3-36.9) 10/25/23 20:07 Sodium 139 mEq/L (136-145) 10/26/23 04:02 Potassium 3.6 mEq/L (3.5-5.1) 10/26/23 04:02 BUN 12 mg/dL (7-18) 10/26/23 04:02 Creatinine 0.71 mg/dL (0.55-1.02) 10/26/23 04:02 Glucose 176 mg/dL (74-106) H 10/26/23 04:02 Magnesium 2.0 mg/dL (1.6-2.4) 10/24/23 15:20 Total Bilirubin 0.8 mg/dL (0.2-1.0) 10/24/23 15:20 AST 13 U/L (15-37) L 10/24/23 15:20 ALT 18 U/L (13-56) 10/24/23 15:20 Alkaline Phosphatase 72 U/L (45-117) 10/24/23 15:20 Triglycerides 346 mg/dL (<150) H 10/25/23 01:23 Cholesterol 186 mg/dL (<200) 10/25/23 01:23 HDL Cholesterol 32 mg/dL (40-60) L 10/25/23 01:23 Cholesterol/HDL Ratio 5.81 10/25/23 01:23 Home Medications: Evolocumab [Repatha Sureclick] 140 mg SQ 10/24/23 Ezetimibe [Zetia*] 1 tab PO DAILY 10/24/23 Gabapentin 1 tab PO BEDTIME 10/24/23 Glipizide [Glipizide Xl] 2 tab PO BID 10/24/23 Linagliptin [Tradjenta] 5 mg PO DAILY 10/24/23 Losartan Potassium 1 tab PO DAILY 10/24/23 Metoprolol Succinate [Toprol Xl*] 1 tab PO DAILY 10/24/23 Aspirin [Aspirin EC] 81 mg PO DAILY #30 tab 10/26/23 Clopidogrel Bisulfate [Plavix] 75 mg PO DAILY #30 tab 10/26/23 New Medications: Aspirin [Aspirin EC] 81 mg PO DAILY #30 tab Clopidogrel Bisulfate [Plavix] 75 mg PO DAILY #30 tab Physician Discharge Instructions: Patient was admitted to the hospital for chest pain, NSTEMI, initial troponin was 172.3, it peaks at 12,831. During hospitalization patient had a heart catheterization performed which showed in the LAD proximal diffuse stenosis ranging from 80 to 90% and it becomes 99% which was the culprit of the VA, PCI was performed with a Synergy drug-eluting stent. Patient otherwise has moderate coronary artery disease. New prescription will be sent for clopidogrel 75 mg daily Continue taking aspirin 81 mg daily Continue other home medications Follow-up with PCP and cardiology in 1 to 2 weeks Diet: ADA Activity: Fall precautions Followup: Rj Lomeli DO [Primary Care Provider] - 1-2 Weeks Yevgeniy Dsouza MD [ACTIVE - CAN ADMIT] - 1-2 Weeks Time spent managing pt's care (in minutes): 30
[2023-10-26] MEDS: EZETIMIBE 10 MG TAB PO SCH (11:46)
[2023-10-26] MEDS: ASPIRIN EC 81 MG TAB PO SCH (11:47)
[2023-10-26] MEDS ORDERED: LOSARTAN POTASSIUM 50 MG TABLET PO ONE (14:30)
[2023-10-26 14:48] VITALS: BP 121/82; TEMP 98.5
--- NOTE | 2023-10-26 15:15 | P.PN ---
Subjective Date of Service: 10/26/23 Primary Care Provider: Dr. Lomeli Chief Complaint: SOB, CP Subjective: Improving, Doing well Review of Systems 10-point ROS is otherwise unremarkable Physical Examination - Vital Signs Temperature: 98.5 F Blood Pressure: 121/82 Pulse: 74 Respirations: 16 Pulse Ox (%): 99 - Physical Exam General: Alert, In no apparent distress, Oriented x3 HEENT: Atraumatic, Normocephalic, PERRLA Neck: Supple, 2+ carotid pulse no bruit, JVD not distended Respiratory: Clear to auscultation bilaterally, Normal air movement Cardiovascular: No edema, Normal pulses, Regular rate/rhythm Capillary refill: <2 Seconds Gastrointestinal: Normal bowel sounds, Soft and benign Musculoskeletal: No clubbing, No swelling Integumentary: No rashes Neurological: Normal speech, Normal tone Lymphatics: No axilla or inguinal lymphadenopathy External genitalia: Deferred Rectal: Deferred Assessment And Plan - Current Problems (Diagnosis) (1) Non-STEMI (non-ST elevated myocardial infarction) Current Visit: Yes Status: Acute Plan: Pt had LAD stent placed yesterday for 99% occlusion. Must stay on asa and plavix and not miss a dose. Pt voices understanding of importance. Will be discharged today per Medicine (2) Hypertension associated with diabetes Current Visit: Yes Status: Acute Plan: Monitor blood pressure Continue metoprolol and losartan (3) Diabetes Current Visit: Yes Status: Acute Plan: follow medicine recommendation Qualifiers: Diabetes mellitus type: type 2 (4) Hyperlipidemia associated with type 2 diabetes mellitus Current Visit: Yes Status: Acute Plan: atorvastatin 40mg po daily, monitor lipids Discharge Plan: Home - Code Status/Comfort Care Code Status Assessed: Yes (DNR) Physician Review: Patient Assessed, Agree with Above Assessment and Plan
== END 2023-10-26 15:16 | disposition home or self-care (01) | DRG 322 ==
LOC: ER 14:55 → ERHOLD 17:15 → 2ND 20:01
PROVIDERS: ADMIT Hospitalist; ATTEND Hospitalist
PROC: 027034Z Dilation of Coronary Artery, One Artery with Drug-eluting Intraluminal Device, Percutaneous Approach (ICD-10-PCS; principal; 2023-10-25)
PROC: 4A023N7 Measurement of Cardiac Sampling and Pressure, Left Heart, Percutaneous Approach (ICD-10-PCS; 2023-10-25)
PROC: B2111ZZ Fluoroscopy of Multiple Coronary Arteries using Low Osmolar Contrast (ICD-10-PCS; 2023-10-25)
DX: I21.4 Non-ST elevation (NSTEMI) myocardial infarction (principal); E78.5 Hyperlipidemia, unspecified; I10 Essential (primary) hypertension; E11.65 Type 2 diabetes mellitus with hyperglycemia; I25.10 Atherosclerotic heart disease of native coronary artery without angina pectoris; F17.200 Nicotine dependence, unspecified, uncomplicated; I25.2 Old myocardial infarction; Z66 Do not resuscitate; Z95.5 Presence of coronary angioplasty implant and graft; Z88.1 Allergy status to other antibiotic agents; Z90.49 Acquired absence of other specified parts of digestive tract; Z90.710 Acquired absence of both cervix and uterus; Z79.84 Long term (current) use of oral hypoglycemic drugs; Z79.899 Other long term (current) drug therapy
CPT/HCPCS: 36415; 71045; 76937; 80048; 80061; 80076; 82947; 83735; 83880; 84484; 85025; 85347; 85610; 85730; 93005; 93306; 93458; 96372; 96374; 99152; 99153; 99285; C1725; C1893; C9600; J0360; J1644; J1815; J2001; J2250; J3010; J7030; J7040; Q9967

== ENCOUNTER 2024-02-21 17:46 | Emergency (ER) | payer OTHER ==
--- OUTSIDE RECORDS SUMMARY | 2024-02-21 17:51 | XMS REPORT | Continuity of Care Document ---
Author Name Unknown Address [address] [place] [address] [facility] thconnect Address [address] [place] [address] Care Team Providers Care Operations Support Coordinator Name Role Phone Rj Loemli Attending Clinician Unavailable Payers Payer Name Policy Type Policy Number Effective Date Expirati on Date Source [facility] [employer] TRS/ERS MCR PPO 1 [id number] 2023 00:00:00 [facility] Problems Condition Name Condition Details Condition Category Status Onset Date Resolution Date Last Treatment Date Treating Clinician Comments Source [id number] Type 2 diabetes mellitus with other diabetic kidney complicati on Problem [facility] [id number] Vitamin D deficiency Problem [facility] [id number] Constipati on, unspecifie d constipati on type Problem [facility] [id number] Mixed hyperlipid emia Problem [facility] [id number] Stented coronary artery Problem [facility] [id number] Memory change Problem [facility] [id number] HZV (herpes zoster virus) post herpetic neuralgia Problem [facility] [id number] History of MT (myocardia l infarction ) Problem [facility] [id number] Dementia without behavioral disturbanc e, unspecifie d dementia type Problem [facility] [id number] Diabetic polyneurop athy associated with type 2 diabetes mellitus Problem [facility] [id number] Essential hypertensi on Problem [facility] [id number] Asymptomat ic hypertensi ve urgency Problem [facility] [id number] 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 Ordering Clinician Indication Dosage Frequency Signature (SIG) Comments Components Source Vitamin D3 99768 UNIT Vitamin D3 52054 UNIT - 00:00: 00 No 1{capsu le} Vitamin D3 21790 UNIT Vitamin D3 74600 UNIT Vitamin D3 65924 UNIT 9-21 00:00: 00 No 1{capsu le} Vitamin D3 17796 UNIT Vitamin D3 10999 UNIT Vitamin D3 83527 UNIT -21 00:00: 00 No 1{capsu le} Vitamin D3 10654 UNIT Vitamin D3 48639 UNIT Vitamin D3 71494 UNIT 9-21 00:00: 00 No 1{capsu le} Vitamin D3 59054 UNIT Vitamin D3 17353 UNIT Vitamin D3 75648 UNIT 9-21 00:00: 00 No 1{capsu le} Vitamin D3 10368 UNIT Vitamin D3 67372 UNIT Vitamin D3 72838 UNIT 9-21 00:00: 00 No 1{capsu le} Vitamin D3 02991 UNIT Accu-Chek Accu-Chek 3-16 00:00: 00 No QD Accu-Chek Lancets - Lancets - 2023-0 3-16 00:00: 00 No Lancets - Accu-Chek Accu-Chek 2023-0 3-16 00:00: 00 No QD Accu-Chek Lancets - Lancets - 2023-0 3-16 00:00: 00 No Lancets - Accu-Chek Accu-Chek 2023-0 3-16 00:00: 00 No QD Accu-Chek Lancets - Lancets - 2023-0 3-16 00:00: 00 No Lancets - Lancets - Lancets - 2023-0 3-16 00:00: 00 No Lancets - Accu-Chek Accu-Chek 2023-0 3-16 00:00: 00 No QD Accu-Chek Accu-Chek Accu-Chek 2023-0 3-16 00:00: 00 No QD Accu-Chek Lancets - Lancets - 2023-0 3-16 00:00: 00 No Lancets - Accu-Chek Accu-Chek 2023-0 3-16 00:00: 00 No QD Accu-Chek Lancets - Lancets - 2023-0 3-16 00:00: 00 No Lancets - Accu-Chek Accu-Chek 2023-0 3-16 00:00: 00 No QD Accu-Chek Lancets - Lancets - 2023-0 3-16 00:00: 00 No Lancets - Lancets - Lancets - 2023-0 3-16 00:00: 00 No Lancets - Accu-Chek Accu-Chek 2023-0 3-16 00:00: 00 No QD Accu-Chek Lancets - Lancets - 2023-0 3-16 00:00: 00 No Lancets - Accu-Chek Accu-Chek 2023-0 3-16 00:00: 00 No QD Accu-Chek Lancets - Lancets - 2023-0 3-16 00:00: 00 No Lancets - Accu-Chek Accu-Chek 2023-0 3-16 00:00: 00 No QD Accu-Chek Lancets - Lancets - 2023-0 3-16 00:00: 00 No Lancets - Accu-Chek Accu-Chek 2023-0 3-16 00:00: 00 No QD Accu-Chek Lancets - Lancets - 2023-0 3-16 00:00: 00 No Lancets - Accu-Chek Accu-Chek 2023-0 3-16 00:00: 00 No QD Accu-Chek Lancets - Lancets - 2023-0 3-16 00:00: 00 No Lancets - Accu-Chek Accu-Chek 2023-0 3-16 00:00: 00 No QD Accu-Chek Lancets - Lancets - 2023-0 3-16 00:00: 00 No Lancets - Accu-Chek Accu-Chek 2023-0 3-16 00:00: 00 No QD Accu-Chek Accu-Chek Accu-Chek 2023-0 3-16 00:00: 00 No QD Accu-Chek Lancets - Lancets - 2023-0 3-16 00:00: 00 No Lancets - Accu-Chek Accu-Chek 2023-0 3-16 00:00: 00 No QD Accu-Chek Lancets - Lancets - 2023-0 3-16 00:00: 00 No Lancets - Accu-Chek Accu-Chek 2023-0 3-16 00:00: 00 No QD Accu-Chek Lancets - Lancets - 2023-0 3-16 00:00: 00 No Lancets - Accu-Chek Accu-Chek 2023-0 3-16 00:00: 00 No QD Accu-Chek Lancets - Lancets - 2023-0 3-16 00:00: 00 No Lancets - Accu-Chek Accu-Chek 2023-0 3-16 00:00: 00 No QD Accu-Chek Lancets - Lancets - 2023-0 3-16 00:00: 00 No Lancets - Tradjenta 5 MG Tradjenta 5 MG 2-0 9-01 00:00: 00 No 1{table t} QD Tradjenta 5 MG Fluconazole 150 MG Fluconazole 150 MG 2-0 8-03 00:00: 00 06-23 00:00 :00 No 1{table t} Fluconazol e 150 MG glipiZIDE ER 5 MG glipiZIDE ER 5 MG 2021-0 3-02 00:00: 00 No 1{table t_with_ food} BID glipiZIDE ER 5 MG Trulicity 1.5mg/0.5ml Trulicity 1.5mg/0.5ml 2021-0 3- 00:00: 00 05-19 00:00 :00 No Trulicity 1.5mg/0.5m l Trulicity 1.5mg/0.5ml Trulicity 1.5mg/0.5ml 2021-0 3- 00:00: 00 05-19 00:00 :00 No Trulicity 1.5mg/0.5m l glipiZIDE ER 5 MG glipiZIDE ER 5 MG 2021-0 2-16 00:00: 00 No 1{table t_with_ food} QD glipiZIDE ER 5 MG Glimepiride 2 MG Glimepiride 2 MG No Glimepirid e 2 MG Tradjenta 5 MG Tradjenta 5 MG No Tradjenta 5 MG Losartan Potassium 25 MG Losartan Potassium 25 MG No 1{table t} QD Losartan Potassium 25 MG Metoprolol Succinate ER 25 MG Metoprolol Succinate ER 25 MG No QD Metoprolol Succinate ER 25 MG Aspirin 81 81 MG Aspirin 81 81 MG No 1{table t} QD Aspirin 81 81 MG Ezetimibe 10 MG Ezetimibe 10 MG No 1{table t} QD Ezetimibe 10 MG Gabapentin 600 MG Gabapentin 600 MG No 1{capsu le_at_b edtime} QD Gabapentin 600 MG Memantine HCl 10 MG Memantine HCl 10 MG No 1{table t} BID Memantine HCl 10 MG Ezetimibe 10 MG Ezetimibe 10 MG No 1{table t} QD Ezetimibe 10 MG Plavix 75 MG Plavix 75 MG No 1{table t} QD Plavix 75 MG Tradjenta 5 MG Tradjenta 5 MG No Tradjenta 5 MG Lidocaine 5 % Lidocaine 5 % No 1{appli cation_ as_need ed} TID Lidocaine 5 % Metoprolol Succinate ER 25 MG Metoprolol Succinate ER 25 MG No QD Metoprolol Succinate ER 25 MG Lidocaine 5 % Lidocaine 5 % No 1{appli cation_ as_need ed} TID Lidocaine 5 % glipiZIDE ER 2.5 MG glipiZIDE ER 2.5 MG No 1{table t_with_ food} glipiZIDE ER 2.5 MG Gabapentin 600 MG Gabapentin 600 MG No 1{capsu le_at_b edtime} QD Gabapentin 600 MG Losartan Potassium 25 MG Losartan Potassium 25 MG No 1{table t} QD Losartan Potassium 25 MG Aspirin 81 81 MG Aspirin 81 81 MG No 1{table t} QD Aspirin 81 81 MG Metoprolol Succinate ER 25 MG Metoprolol Succinate ER 25 MG No Metoprolol Succinate ER 25 MG Metoprolol Succinate ER 25 MG Metoprolol Succinate ER 25 MG No QD Metoprolol Succinate ER 25 MG Pharmacist Choice Lancets - Pharmacist Choice Lancets - No Pharmacist Choice Lancets - Plavix 75 MG Plavix 75 MG No 1{table t} QD Plavix 75 MG Tradjenta 5 MG Tradjenta 5 MG No Tradjenta 5 MG Ezetimibe 10 MG Ezetimibe 10 MG No Ezetimibe 10 MG Lidocaine 5 % Lidocaine 5 % No 1{appli cation_ as_need ed} TID Lidocaine 5 % Ezetimibe 10 MG Ezetimibe 10 MG No 1{table t} QD Ezetimibe 10 MG glipiZIDE ER 2.5 MG glipiZIDE ER 2.5 MG No 1{table t_with_ food} glipiZIDE ER 2.5 MG Gabapentin 600 MG Gabapentin 600 MG No 1{capsu le_at_b edtime} QD Gabapentin 600 MG Raza Doc Control Normal Raza Doc Control Normal No Raza Doc Control Normal Losartan Potassium 25 MG Losartan Potassium 25 MG No 1{table t} QD Losartan Potassium 25 MG Aspirin 81 81 MG Aspirin 81 81 MG No 1{table t} QD Aspirin 81 81 MG Glimepiride 4 MG Glimepiride 4 MG No Glimepirid e 4 MG Metoprolol Succinate ER 25 MG Metoprolol Succinate ER 25 MG No QD Metoprolol Succinate ER 25 MG Pharmacist Choice Lancets - Pharmacist Choice Lancets - No Pharmacist Choice Lancets - Plavix 75 MG Plavix 75 MG No 1{table t} QD Plavix 75 MG Losartan Potassium 25 MG Losartan Potassium 25 MG No 1{table t} QD Losartan Potassium 25 MG Tradjenta 5 MG Tradjenta 5 MG No Tradjenta 5 MG Lidocaine 5 % Lidocaine 5 % No 1{appli cation_ as_need ed} TID Lidocaine 5 % Ezetimibe 10 MG Ezetimibe 10 MG No 1{table t} QD Ezetimibe 10 MG glipiZIDE ER 2.5 MG glipiZIDE ER 2.5 MG No 1{table t_with_ food} glipiZIDE ER 2.5 MG Gabapentin 600 MG Gabapentin 600 MG No 1{capsu le_at_b edtime} QD Gabapentin 600 MG Raza Doc Control Normal Raza Doc Control Normal No Raza Doc Control Normal Losartan Potassium 25 MG Losartan Potassium 25 MG No 1{table t} QD Losartan Potassium 25 MG Gabapentin 300 MG Gabapentin 300 MG No Gabapentin 300 MG Aspirin 81 81 MG Aspirin 81 81 MG No 1{table t} QD Aspirin 81 81 MG Losartan Potassium 25 MG Losartan Potassium 25 MG No 1{table t} QD Losartan Potassium 25 MG Plavix 75 MG Plavix 75 MG No 1{table t} QD Plavix 75 MG Gabapentin 600 MG Gabapentin 600 MG No 1{capsu le_at_b edtime} QD Gabapentin 600 MG Aspirin 81 81 MG Aspirin 81 81 MG No 1{table t} QD Aspirin 81 81 MG Tylenol 8 Hour Arthritis Pain Tylenol 8 Hour Arthritis Pain No Tylenol 8 Hour Arthritis Pain Lidocaine 5 % Lidocaine 5 % No 1{appli cation_ as_need ed} TID Lidocaine 5 % Ezetimibe 10 MG Ezetimibe 10 MG No 1{table t} QD Ezetimibe 10 MG Metoprolol Succinate ER 25 MG Metoprolol Succinate ER 25 MG No QD Metoprolol Succinate ER 25 MG glipiZIDE ER 2.5 MG glipiZIDE ER 2.5 MG No 1{table t_with_ food} BID glipiZIDE ER 2.5 MG Tradjenta 5 MG Tradjenta 5 MG No 1{table t} QD Tradjenta 5 MG Repatha SureClick 140 MG/ML Repatha SureClick 140 MG/ML No Repatha SureClick 140 MG/ML Donepezil HCl 10 MG Donepezil HCl 10 MG No BID Donepezil HCl 10 MG Metoprolol Succinate ER 25 MG Metoprolol Succinate ER 25 MG No Metoprolol Succinate ER 25 MG Repatha SureClick 140 MG/ML Repatha SureClick 140 MG/ML No Repatha SureClick 140 MG/ML Gabapentin 300 MG Gabapentin 300 MG No 1{capsu le} TID Gabapentin 300 MG Losartan Potassium 25 MG Losartan Potassium 25 MG No Losartan Potassium 25 MG Ezetimibe 10 MG Ezetimibe 10 MG No 1{table t} QD Ezetimibe 10 MG Memantine HCl 10 MG Memantine HCl 10 MG No 1{table t} BID Memantine HCl 10 MG Lidocaine 5 % Lidocaine 5 % No 1{appli cation_ as_need ed} TID Lidocaine 5 % Donepezil HCl 10 MG Donepezil HCl 10 MG No BID Donepezil HCl 10 MG glipiZIDE ER 5 MG glipiZIDE ER 5 MG No BID glipiZIDE ER 5 MG Glimepiride 4 MG Glimepiride 4 MG No Glimepirid e 4 MG Memantine HCl 10 MG Memantine HCl 10 MG No 1{table t} BID Memantine HCl 10 MG Glimepiride 4 MG Glimepiride 4 MG No Glimepirid e 4 MG Repatha 140mg/ml Repatha 140mg/ml No Repatha 140mg/ml Gabapentin 600 MG Gabapentin 600 MG No 1{capsu le_at_b edtime} QD Gabapentin 600 MG Lidocaine 5 % Lidocaine 5 % No Lidocaine 5 % glipiZIDE ER 5 MG glipiZIDE ER 5 MG No 1{table t_with_ food} BID glipiZIDE ER 5 MG Metoprolol Succinate ER 25 MG Metoprolol Succinate ER 25 MG No Metoprolol Succinate ER 25 MG Ezetimibe 10 MG Ezetimibe 10 MG No Ezetimibe 10 MG Donepezil HCl 10 MG Donepezil HCl 10 MG No BID Donepezil HCl 10 MG Losartan Potassium 25 MG Losartan Potassium 25 MG No 1{table t} QD Losartan Potassium 25 MG Gabapentin 300 MG Gabapentin 300 MG No Gabapentin 300 MG Memantine HCl 10 MG Memantine HCl 10 MG No 1{table t} BID Memantine HCl 10 MG Glimepiride 4 MG Glimepiride 4 MG No Glimepirid e 4 MG Repatha 140mg/ml Repatha 140mg/ml No Repatha 140mg/ml Gabapentin 600 MG Gabapentin 600 MG No 1{capsu le_at_b edtime} QD Gabapentin 600 MG Lidocaine 5 % Lidocaine 5 % No Lidocaine 5 % Ezetimibe 10 MG Ezetimibe 10 MG No 1{table t} QD Ezetimibe 10 MG Metoprolol Succinate ER 25 MG Metoprolol Succinate ER 25 MG No Metoprolol Succinate ER 25 MG Donepezil HCl 10 MG Donepezil HCl 10 MG No BID Donepezil HCl 10 MG glipiZIDE ER 5 MG glipiZIDE ER 5 MG No 1{table t_with_ food} BID glipiZIDE ER 5 MG Losartan Potassium 25 MG Losartan Potassium 25 MG No Losartan Potassium 25 MG Tradjenta 5 MG Tradjenta 5 MG No 1{table t} QD Tradjenta 5 MG Gabapentin 300 MG Gabapentin 300 MG No Gabapentin 300 MG Tradjenta 5 MG Tradjenta 5 MG No 1{table t} QD Tradjenta 5 MG Metoprolol Succinate ER 25 MG Metoprolol Succinate ER 25 MG No Metoprolol Succinate ER 25 MG Lidocaine 5 % Lidocaine 5 % No 1{appli cation_ as_need ed} TID Lidocaine 5 % Losartan Potassium 25 MG Losartan Potassium 25 MG No Losartan Potassium 25 MG Donepezil HCl 10 MG Donepezil HCl 10 MG No BID Donepezil HCl 10 MG glipiZIDE ER 2.5 MG glipiZIDE ER 2.5 MG No 1{table t_with_ food} BID glipiZIDE ER 2.5 MG Gabapentin 600 MG Gabapentin 600 MG No 1{capsu le_at_b edtime} QD Gabapentin 600 MG Ezetimibe 10 MG Ezetimibe 10 MG No 1{table t} QD Ezetimibe 10 MG Repatha 140mg/ml Repatha 140mg/ml No Repatha 140mg/ml glipiZIDE ER 5 MG glipiZIDE ER 5 MG No glipiZIDE ER 5 MG Glimepiride 4 MG Glimepiride 4 MG No Glimepirid e 4 MG Gabapentin 300 MG Gabapentin 300 MG No Gabapentin 300 MG Memantine HCl 10 MG Memantine HCl 10 MG No 1{table t} BID Memantine HCl 10 MG Tradjenta 5 MG Tradjenta 5 MG No 1{table t} QD Tradjenta 5 MG Metoprolol Succinate ER 25 MG Metoprolol Succinate ER 25 MG No Metoprolol Succinate ER 25 MG Lidocaine 5 % Lidocaine 5 % No 1{appli cation_ as_need ed} TID Lidocaine 5 % Losartan Potassium 25 MG Losartan Potassium 25 MG No Losartan Potassium 25 MG Donepezil HCl 10 MG Donepezil HCl 10 MG No BID Donepezil HCl 10 MG glipiZIDE ER 2.5 MG glipiZIDE ER 2.5 MG No 1{table t_with_ food} BID glipiZIDE ER 2.5 MG Gabapentin 600 MG Gabapentin 600 MG No 1{capsu le_at_b edtime} QD Gabapentin 600 MG Ezetimibe 10 MG Ezetimibe 10 MG No 1{table t} QD Ezetimibe 10 MG Repatha 140mg/ml Repatha 140mg/ml No Repatha 140mg/ml glipiZIDE ER 5 MG glipiZIDE ER 5 MG No glipiZIDE ER 5 MG Glimepiride 4 MG Glimepiride 4 MG No Glimepirid e 4 MG Gabapentin 300 MG Gabapentin 300 MG No Gabapentin 300 MG Memantine HCl 10 MG Memantine HCl 10 MG No 1{table t} BID Memantine HCl 10 MG Tradjenta 5 MG Tradjenta 5 MG No 1{table t} QD Tradjenta 5 MG Metoprolol Succinate ER 25 MG Metoprolol Succinate ER 25 MG No Metoprolol Succinate ER 25 MG Lidocaine 5 % Lidocaine 5 % No 1{appli cation_ as_need ed} TID Lidocaine 5 % Losartan Potassium 25 MG Losartan Potassium 25 MG No Losartan Potassium 25 MG Donepezil HCl 10 MG Donepezil HCl 10 MG No BID Donepezil HCl 10 MG glipiZIDE ER 2.5 MG glipiZIDE ER 2.5 MG No 1{table t_with_ food} BID glipiZIDE ER 2.5 MG Gabapentin 600 MG Gabapentin 600 MG No 1{capsu le_at_b edtime} QD Gabapentin 600 MG Ezetimibe 10 MG Ezetimibe 10 MG No 1{table t} QD Ezetimibe 10 MG Repatha 140mg/ml Repatha 140mg/ml No Repatha 140mg/ml glipiZIDE ER 5 MG glipiZIDE ER 5 MG No glipiZIDE ER 5 MG Glimepiride 4 MG Glimepiride 4 MG No Glimepirid e 4 MG Gabapentin 300 MG Gabapentin 300 MG No Gabapentin 300 MG Memantine HCl 10 MG Memantine HCl 10 MG No 1{table t} BID Memantine HCl 10 MG Metoprolol Succinate ER 25 MG Metoprolol Succinate ER 25 MG No Metoprolol Succinate ER 25 MG Lidocaine 5 % Lidocaine 5 % No Lidocaine 5 % Losartan Potassium 25 MG Losartan Potassium 25 MG No Losartan Potassium 25 MG glipiZIDE ER 2.5 MG glipiZIDE ER 2.5 MG No 1{table t_with_ food} BID glipiZIDE ER 2.5 MG Ezetimibe 10 MG Ezetimibe 10 MG No Ezetimibe 10 MG Aspirin 81 81 MG Aspirin 81 81 MG No 1{table t} QD Aspirin 81 81 MG glipiZIDE XL 5 MG glipiZIDE XL 5 MG No 1{table t_with_ food} QD glipiZIDE XL 5 MG Tradjenta 5 MG Tradjenta 5 MG No Tradjenta 5 MG Memantine HCl 10 MG Memantine HCl 10 MG No Memantine HCl 10 MG Donepezil HCl 10 MG Donepezil HCl 10 MG No BID Donepezil HCl 10 MG Glimepiride 4 MG Glimepiride 4 MG No Glimepirid e 4 MG Gabapentin 600 MG Gabapentin 600 MG No Gabapentin 600 MG Gabapentin 300 MG Gabapentin 300 MG No Gabapentin 300 MG Donepezil HCl 10 MG Donepezil HCl 10 MG No BID Donepezil HCl 10 MG Tradjenta 5 MG Tradjenta 5 MG No Tradjenta 5 MG Losartan Potassium 25 MG Losartan Potassium 25 MG No Losartan Potassium 25 MG glipiZIDE ER 2.5 MG glipiZIDE ER 2.5 MG No 1{table t_with_ food} glipiZIDE ER 2.5 MG Aspirin 81 81 MG Aspirin 81 81 MG No 1{table t} QD Aspirin 81 81 MG Gabapentin 600 MG Gabapentin 600 MG No 1{capsu le_at_b edtime} QD Gabapentin 600 MG Ezetimibe 10 MG Ezetimibe 10 MG No 1{table t} QD Ezetimibe 10 MG Memantine HCl 10 MG Memantine HCl 10 MG No 1{table t} BID Memantine HCl 10 MG Metoprolol Succinate ER 25 MG Metoprolol Succinate ER 25 MG No QD Metoprolol Succinate ER 25 MG Lidocaine 5 % Lidocaine 5 % No 1{appli cation_ as_need ed} TID Lidocaine 5 % Donepezil HCl 10 MG Donepezil HCl 10 MG No BID Donepezil HCl 10 MG Tradjenta 5 MG Tradjenta 5 MG No Tradjenta 5 MG Losartan Potassium 25 MG Losartan Potassium 25 MG No Losartan Potassium 25 MG glipiZIDE ER 2.5 MG glipiZIDE ER 2.5 MG No 1{table t_with_ food} glipiZIDE ER 2.5 MG Aspirin 81 81 MG Aspirin 81 81 MG No 1{table t} QD Aspirin 81 81 MG Gabapentin 600 MG Gabapentin 600 MG No 1{capsu le_at_b edtime} QD Gabapentin 600 MG Ezetimibe 10 MG Ezetimibe 10 MG No 1{table t} QD Ezetimibe 10 MG Memantine HCl 10 MG Memantine HCl 10 MG No 1{table t} BID Memantine HCl 10 MG Metoprolol Succinate ER 25 MG Metoprolol Succinate ER 25 MG No QD Metoprolol Succinate ER 25 MG Lidocaine 5 % Lidocaine 5 % No 1{appli cation_ as_need ed} TID Lidocaine 5 % Donepezil HCl 10 MG Donepezil HCl 10 MG No BID Donepezil HCl 10 MG Gabapentin 600 MG Gabapentin 600 MG No Gabapentin 600 MG Metoprolol Succinate ER 25 MG Metoprolol Succinate ER 25 MG No QD Metoprolol Succinate ER 25 MG Aspirin 81 81 MG Aspirin 81 81 MG No 1{table t} QD Aspirin 81 81 MG glipiZIDE ER 2.5 MG glipiZIDE ER 2.5 MG No 1{table t_with_ food} glipiZIDE ER 2.5 MG Memantine HCl 10 MG Memantine HCl 10 MG No 1{table t} BID Memantine HCl 10 MG Ezetimibe 10 MG Ezetimibe 10 MG No 1{table t} QD Ezetimibe 10 MG Tradjenta 5 MG Tradjenta 5 MG No Tradjenta 5 MG Losartan Potassium 25 MG Losartan Potassium 25 MG No Losartan Potassium 25 MG Lidocaine 5 % Lidocaine 5 % No 1{appli cation_ as_need ed} TID Lidocaine 5 % Ezetimibe 10 MG Ezetimibe 10 MG No 1{table t} QD Ezetimibe 10 MG Lidocaine 5 % Lidocaine 5 % No 1{appli cation_ as_need ed} TID Lidocaine 5 % Aspirin 81 81 MG Aspirin 81 81 MG No 1{table t} QD Aspirin 81 81 MG glipiZIDE ER 2.5 MG glipiZIDE ER 2.5 MG No 1{table t_with_ food} glipiZIDE ER 2.5 MG Metoprolol Succinate ER 25 MG Metoprolol Succinate ER 25 MG No QD Metoprolol Succinate ER 25 MG Gabapentin 600 MG Gabapentin 600 MG No 1{capsu le_at_b edtime} QD Gabapentin 600 MG Tradjenta 5 MG Tradjenta 5 MG No Tradjenta 5 MG Losartan Potassium 25 MG Losartan Potassium 25 MG No 1{table t} QD Losartan Potassium 25 MG Donepezil HCl 10 MG Donepezil HCl 10 MG No BID Donepezil HCl 10 MG Memantine HCl 10 MG Memantine HCl 10 MG No 1{table t} BID Memantine HCl 10 MG Ezetimibe 10 MG Ezetimibe 10 MG No 1{table t} QD Ezetimibe 10 MG Lidocaine 5 % Lidocaine 5 % No 1{appli cation_ as_need ed} TID Lidocaine 5 % Aspirin 81 81 MG Aspirin 81 81 MG No 1{table t} QD Aspirin 81 81 MG glipiZIDE ER 2.5 MG glipiZIDE ER 2.5 MG No 1{table t_with_ food} glipiZIDE ER 2.5 MG Metoprolol Succinate ER 25 MG Metoprolol Succinate ER 25 MG No QD Metoprolol Succinate ER 25 MG Gabapentin 600 MG Gabapentin 600 MG No 1{capsu le_at_b edtime} QD Gabapentin 600 MG Tradjenta 5 MG Tradjenta 5 MG No Tradjenta 5 MG Losartan Potassium 25 MG Losartan Potassium 25 MG No 1{table t} QD Losartan Potassium 25 MG Donepezil HCl 10 MG Donepezil HCl 10 MG No BID Donepezil HCl 10 MG Memantine HCl 10 MG Memantine HCl 10 MG No 1{table t} BID Memantine HCl 10 MG Ezetimibe 10 MG Ezetimibe 10 MG No 1{table t} QD Ezetimibe 10 MG Aspirin 81 81 MG Aspirin 81 81 MG No 1{table t} QD Aspirin 81 81 MG glipiZIDE ER 2.5 MG glipiZIDE ER 2.5 MG No 1{table t_with_ food} glipiZIDE ER 2.5 MG Tradjenta 5 MG Tradjenta 5 MG No Tradjenta 5 MG Gabapentin 600 MG Gabapentin 600 MG No 1{capsu le_at_b edtime} QD Gabapentin 600 MG Lidocaine 5 % Lidocaine 5 % No 1{appli cation_ as_need ed} TID Lidocaine 5 % Losartan Potassium 25 MG Losartan Potassium 25 MG No 1{table t} QD Losartan Potassium 25 MG Metoprolol Succinate ER 25 MG Metoprolol Succinate ER 25 MG No QD Metoprolol Succinate ER 25 MG Donepezil HCl 10 MG Donepezil HCl 10 MG No BID Donepezil HCl 10 MG Memantine HCl 10 MG Memantine HCl 10 MG No 1{table t} BID Memantine HCl 10 MG Losartan Potassium 25 MG Losartan Potassium 25 MG No 1{table t} QD Losartan Potassium 25 MG Metoprolol Succinate ER 25 MG Metoprolol Succinate ER 25 MG No QD Metoprolol Succinate ER 25 MG Tradjenta 5 MG Tradjenta 5 MG No Tradjenta 5 MG Ezetimibe 10 MG Ezetimibe 10 MG No 1{table t} QD Ezetimibe 10 MG Lidocaine 5 % Lidocaine 5 % No 1{appli cation_ as_need ed} TID Lidocaine 5 % Plavix 75 MG Plavix 75 MG No 1{table t} QD Plavix 75 MG Gabapentin 600 MG Gabapentin 600 MG No 1{capsu le_at_b edtime} QD Gabapentin 600 MG glipiZIDE ER 2.5 MG glipiZIDE ER 2.5 MG No 1{table t_with_ food} glipiZIDE ER 2.5 MG Aspirin 81 81 MG Aspirin 81 81 MG No 1{table t} QD Aspirin 81 81 MG Losartan Potassium 25 MG Losartan Potassium 25 MG No 1{table t} QD Losartan Potassium 25 MG Metoprolol Succinate ER 25 MG Metoprolol Succinate ER 25 MG No QD Metoprolol Succinate ER 25 MG Tradjenta 5 MG Tradjenta 5 MG No Tradjenta 5 MG Ezetimibe 10 MG Ezetimibe 10 MG No 1{table t} QD Ezetimibe 10 MG Lidocaine 5 % Lidocaine 5 % No 1{appli cation_ as_need ed} TID Lidocaine 5 % Plavix 75 MG Plavix 75 MG No 1{table t} QD Plavix 75 MG Gabapentin 600 MG Gabapentin 600 MG No 1{capsu le_at_b edtime} QD Gabapentin 600 MG glipiZIDE ER 2.5 MG glipiZIDE ER 2.5 MG No 1{table t_with_ food} glipiZIDE ER 2.5 MG Aspirin 81 81 MG Aspirin 81 81 MG No 1{table t} QD Aspirin 81 81 MG Losartan Potassium 25 MG Losartan Potassium 25 MG No 1{table t} QD Losartan Potassium 25 MG Metoprolol Succinate ER 25 MG Metoprolol Succinate ER 25 MG No QD Metoprolol Succinate ER 25 MG Tradjenta 5 MG Tradjenta 5 MG No Tradjenta 5 MG Ezetimibe 10 MG Ezetimibe 10 MG No 1{table t} QD Ezetimibe 10 MG Lidocaine 5 % Lidocaine 5 % No 1{appli cation_ as_need ed} TID Lidocaine 5 % Plavix 75 MG Plavix 75 MG No 1{table t} QD Plavix 75 MG Gabapentin 600 MG Gabapentin 600 MG No 1{capsu le_at_b edtime} QD Gabapentin 600 MG glipiZIDE ER 2.5 MG glipiZIDE ER 2.5 MG No 1{table t_with_ food} glipiZIDE ER 2.5 MG Aspirin 81 81 MG Aspirin 81 81 MG No 1{table t} QD Aspirin 81 81 MG Losartan Potassium 25 MG Losartan Potassium 25 MG No 1{table t} QD Losartan Potassium 25 MG Metoprolol Succinate ER 25 MG Metoprolol Succinate ER 25 MG No QD Metoprolol Succinate ER 25 MG Tradjenta 5 MG Tradjenta 5 MG No Tradjenta 5 MG Ezetimibe 10 MG Ezetimibe 10 MG No 1{table t} QD Ezetimibe 10 MG Lidocaine 5 % Lidocaine 5 % No 1{appli cation_ as_need ed} TID Lidocaine 5 % Plavix 75 MG Plavix 75 MG No 1{table t} QD Plavix 75 MG Gabapentin 600 MG Gabapentin 600 MG No 1{capsu le_at_b edtime} QD Gabapentin 600 MG glipiZIDE ER 2.5 MG glipiZIDE ER 2.5 MG No 1{table t_with_ food} glipiZIDE ER 2.5 MG Aspirin 81 81 MG Aspirin 81 81 MG No 1{table t} QD Aspirin 81 81 MG Lidocaine 5 % Lidocaine 5 % No 1{appli cation_ as_need ed} TID Lidocaine 5 % glipiZIDE ER 2.5 MG glipiZIDE ER 2.5 MG No 1{table t_with_ food} glipiZIDE ER 2.5 MG Plavix 75 MG Plavix 75 MG No 1{table t} QD Plavix 75 MG Tradjenta 5 MG Tradjenta 5 MG No Tradjenta 5 MG Losartan Potassium 25 MG Losartan Potassium 25 MG No 1{table t} QD Losartan Potassium 25 MG Metoprolol Succinate ER 25 MG Metoprolol Succinate ER 25 MG No QD Metoprolol Succinate ER 25 MG Aspirin 81 81 MG Aspirin 81 81 MG No 1{table t} QD Aspirin 81 81 MG Ezetimibe 10 MG Ezetimibe 10 MG No 1{table t} QD Ezetimibe 10 MG Gabapentin 600 MG Gabapentin 600 MG No 1{capsu le_at_b edtime} QD Gabapentin 600 MG Lidocaine 5 % Lidocaine 5 % No 1{appli cation_ as_need ed} TID Lidocaine 5 % glipiZIDE ER 2.5 MG glipiZIDE ER 2.5 MG No 1{table t_with_ food} glipiZIDE ER 2.5 MG Plavix 75 MG Plavix 75 MG No 1{table t} QD Plavix 75 MG Tradjenta 5 MG Tradjenta 5 MG No Tradjenta 5 MG Losartan Potassium 25 MG Losartan Potassium 25 MG No 1{table t} QD Losartan Potassium 25 MG Metoprolol Succinate ER 25 MG Metoprolol Succinate ER 25 MG No QD Metoprolol Succinate ER 25 MG Aspirin 81 81 MG Aspirin 81 81 MG No 1{table t} QD Aspirin 81 81 MG Ezetimibe 10 MG Ezetimibe 10 MG No 1{table t} QD Ezetimibe 10 MG Gabapentin 600 MG Gabapentin 600 MG No 1{capsu le_at_b edtime} QD Gabapentin 600 MG Lidocaine 5 % Lidocaine 5 % No 1{appli cation_ as_need ed} TID Lidocaine 5 % glipiZIDE ER 2.5 MG glipiZIDE ER 2.5 MG No 1{table t_with_ food} glipiZIDE ER 2.5 MG Plavix 75 MG Plavix 75 MG No 1{table t} QD Plavix 75 MG Tradjenta 5 MG Tradjenta 5 MG No Tradjenta 5 MG Losartan Potassium 25 MG Losartan Potassium 25 MG No 1{table t} QD Losartan Potassium 25 MG Metoprolol Succinate ER 25 MG Metoprolol Succinate ER 25 MG No QD Metoprolol Succinate ER 25 MG Aspirin 81 81 MG Aspirin 81 81 MG No 1{table t} QD Aspirin 81 81 MG Ezetimibe 10 MG Ezetimibe 10 MG No 1{table t} QD Ezetimibe 10 MG Gabapentin 600 MG Gabapentin 600 MG No 1{capsu le_at_b edtime} QD Gabapentin 600 MG Lidocaine 5 % Lidocaine 5 % No 1{appli cation_ as_need ed} TID Lidocaine 5 % glipiZIDE ER 2.5 MG glipiZIDE ER 2.5 MG No 1{table t_with_ food} glipiZIDE ER 2.5 MG Plavix 75 MG Plavix 75 MG No 1{table t} QD Plavix 75 MG Tradjenta 5 MG Tradjenta 5 MG No Tradjenta 5 MG Losartan Potassium 25 MG Losartan Potassium 25 MG No 1{table t} QD Losartan Potassium 25 MG Metoprolol Succinate ER 25 MG Metoprolol Succinate ER 25 MG No QD Metoprolol Succinate ER 25 MG Aspirin 81 81 MG Aspirin 81 81 MG No 1{table t} QD Aspirin 81 81 MG Ezetimibe 10 MG Ezetimibe 10 MG No 1{table t} QD Ezetimibe 10 MG Gabapentin 600 MG Gabapentin 600 MG No 1{capsu le_at_b edtime} QD Gabapentin 600 MG Lidocaine 5 % Lidocaine 5 % No 1{appli cation_ as_need ed} TID Lidocaine 5 % glipiZIDE ER 2.5 MG glipiZIDE ER 2.5 MG No 1{table t_with_ food} glipiZIDE ER 2.5 MG Plavix 75 MG Plavix 75 MG No 1{table t} QD Plavix 75 MG Repatha SureClick 140 MG/ML Repatha SureClick 140 MG/ML 10-19 00:00 :00 No Repatha SureClick 140 MG/ML Repatha SureClick 140 MG/ML Repatha SureClick 140 MG/ML 10-19 00:00 :00 No Repatha SureClick 140 MG/ML Vital Signs Vital Name Observation Time Observation Value Comments S ource height 2024-02-15 09:20:00 64 [in_i] Commo n [facility] weight 2024-02-15 09:20:00 159.0 [lb_av] Co [facility] temperature 2024-02-15 09:20:00 97.4 [degF] Com [facility] bmi 2024-02-15 09:20:00 27.29 kg/m2 Comm on [facility] oximetry 2024-02-15 09:20:00 99 % Commo n [facility] respiratory rate 2024-02-15 09:20:00 18 /min Common [facility] blood pressure systolic 2024-02-15 09:20:00 135 mm[Hg] Common [facility] blood pressure diastolic 2024-02-15 09:20:00 76 mm[Hg] Common [facility] height 2023-11-16 09:10:00 64 [in_i] Commo n [facility] weight 2023-11-16 09:10:00 165.8 [lb_av] Co [facility] temperature 2023-11-16 09:10:00 97.3 [degF] Com [facility] bmi 2023-11-16 09:10:00 28.46 kg/m2 Comm on [facility] oximetry 2023-11-16 09:10:00 98 % Commo n [facility] blood pressure systolic 2023-11-16 09:10:00 137 mm[Hg] [facility] blood pressure diastolic 2023-11-16 09:10:00 74 mm[Hg] [facility] height 2023-08-10 09:20:00 64 [in_i] Commo n [facility] weight 2023-08-10 09:20:00 167.0 [lb_av] Co on [facility] temperature 2023-08-10 09:20:00 97.7 [degF] Com [facility] bmi 2023-08-10 09:20:00 28.66 kg/m2 Comm on [facility] oximetry 2023-08-10 09:20:00 97 % Commo n [facility] respiratory rate 2023-08-10 09:20:00 18 /min Common [facility] blood pressure systolic 2023-08-10 09:20:00 139 mm[Hg] Common [facility] blood pressure diastolic 2023-08-10 09:20:00 77 mm[Hg] [facility] height 2023-05-04 09:20:00 64 [in_i] Commo n [facility] weight 2023-05-04 09:20:00 166.6 [lb_av] Co on [facility] temperature 2023-05-04 09:20:00 97.8 [degF] Com [facility] bmi 2023-05-04 09:20:00 28.59 kg/m2 Comm on [facility] oximetry 2023-05-04 09:20:00 99 % Commo n [facility] respiratory rate 2023-05-04 09:20:00 18 /min [facility] blood pressure systolic 2023-05-04 09:20:00 132 mm[Hg] Common [facility] blood pressure diastolic 2023-05-04 09:20:00 70 mm[Hg] [facility] height 2023-05-04 09:20:00 64 [in_i] Commo n [facility] weight 2023-05-04 09:20:00 166.6 [lb_av] Co [facility] temperature 2023-05-04 09:20:00 97.8 [degF] Com [facility] bmi 2023-05-04 09:20:00 28.59 kg/m2 Comm on [facility] oximetry 2023-05-04 09:20:00 99 % Commo n [facility] respiratory rate 2023-05-04 09:20:00 18 /min Common [facility] blood pressure systolic 2023-05-04 09:20:00 132 mm[Hg] Common [facility] blood pressure diastolic 2023-05-04 09:20:00 70 mm[Hg] Common [facility] height 2023-01-19 08:40:00 64 [in_i] Commo n [facility] weight 2023-01-19 08:40:00 162.9 [lb_av] Co mmon [facility] temperature 2023-01-19 08:40:00 97.3 [degF] Com [facility] bmi 2023-01-19 08:40:00 27.96 kg/m2 Comm on [facility] oximetry 2023-01-19 08:40:00 99 % Commo n [facility] respiratory rate 2023-01-19 08:40:00 18 /min Common [facility] blood pressure systolic 2023-01-19 08:40:00 119 mm[Hg] Common [facility] blood pressure diastolic 2023-01-19 08:40:00 71 mm[Hg] Common [facility] height 2022-10-20 10:00:00 64 [in_i] Commo n [facility] weight 2022-10-20 10:00:00 165.3 [lb_av] Co mmon [facility] temperature 2022-10-20 10:00:00 97.3 [degF] Com [facility] bmi 2022-10-20 10:00:00 28.37 kg/m2 Comm on [facility] oximetry 2022-10-20 10:00:00 99 % Commo n [facility] respiratory rate 2022-10-20 10:00:00 18 /min [facility] blood pressure systolic 2022-10-20 10:00:00 138 mm[Hg] [facility] blood pressure diastolic 2022-10-20 10:00:00 77 mm[Hg] Common [facility] height 2022-07-21 09:00:00 64 [in_i] Commo n [facility] weight 2022-07-21 09:00:00 158.7 [lb_av] Co on [facility] temperature 2022-07-21 09:00:00 97.4 [degF] Com [facility] bmi 2022-07-21 09:00:00 27.24 kg/m2 Comm on [facility] oximetry 2022-07-21 09:00:00 96 % Commo n [facility] respiratory rate 2022-07-21 09:00:00 16 /min [facility] blood pressure systolic 2022-07-21 09:00:00 142 mm[Hg] [facility] blood pressure diastolic 2022-07-21 09:00:00 76 mm[Hg] [facility] height 2022-06-22 09:00:00 64 [in_i] Commo n [facility] weight 2022-06-22 09:00:00 154 [lb_av] Comm on [facility] bmi 2022-06-22 09:00:00 26.43 kg/m2 Comm on [facility] height 2022-04-14 09:00:00 64 [in_i] Commo n [facility] weight 2022-04-14 09:00:00 159.9 [lb_av] Co [facility] temperature 2022-04-14 09:00:00 97.1 [degF] Com [facility] bmi 2022-04-14 09:00:00 27.44 kg/m2 Comm on [facility] oximetry 2022-04-14 09:00:00 99 % Commo n [facility] respiratory rate 2022-04-14 09:00:00 18 /min Common [facility] blood pressure systolic 2022-04-14 09:00:00 138 mm[Hg] Common [facility] blood pressure diastolic 2022-04-14 09:00:00 78 mm[Hg] [facility] height 2022-04-14 09:00:00 64 [in_i] Commo n [facility] weight 2022-04-14 09:00:00 159.9 [lb_av] Co [facility] temperature 2022-04-14 09:00:00 97.1 [degF] Com [facility] bmi 2022-04-14 09:00:00 27.44 kg/m2 Comm on [facility] oximetry 2022-04-14 09:00:00 99 % Commo n [facility] respiratory rate 2022-04-14 09:00:00 18 /min Common [facility] blood pressure systolic 2022-04-14 09:00:00 138 mm[Hg] Common [facility] blood pressure diastolic 2022-04-14 09:00:00 78 mm[Hg] Common [facility] height 2022-01-19 15:00:00 64 [in_i] Commo n [facility] weight 2022-01-19 15:00:00 172.9 [lb_av] Co mmon [facility] temperature 2022-01-19 15:00:00 97.7 [degF] Com [facility] bmi 2022-01-19 15:00:00 29.67 kg/m2 Comm on [facility] oximetry 2022-01-19 15:00:00 97 % Commo n [facility] respiratory rate 2022-01-19 15:00:00 17 /min [facility] blood pressure systolic 2022-01-19 15:00:00 135 mm[Hg] Common [facility] blood pressure diastolic 2022-01-19 15:00:00 76 mm[Hg] [facility] height 2021-10-21 14:50:00 64 [in_i] Commo n [facility] weight 2021-10-21 14:50:00 176.5 [lb_av] Co mmon [facility] temperature 2021-10-21 14:50:00 97.6 [degF] Com mon [facility] bmi 2021-10-21 14:50:00 30.29 kg/m2 Comm on [facility] oximetry 2021-10-21 14:50:00 96 % Commo n [facility] respiratory rate 2021-10-21 14:50:00 16 /min [facility] blood pressure systolic 2021-10-21 14:50:00 133 mm[Hg] [facility] blood pressure diastolic 2021-10-21 14:50:00 75 mm[Hg] [facility] Encounters Start Date/Time End Date/Time Encounter Type Admission Type Attending [facility] Care Facility Care Department Encounter ID Source 2024-02-14 11:22:00 Outpatient [facility], [facility] [id number] [facility] 2022-10-19 08:24:01 Outpatient [facility] [id number] [facility] 2022-07-21 08:43:03 Outpatient [facility], [facility] [id number] [facility] 2021-12-15 14:06:04 Outpatient [facility]omeli, [facility] [id number] [facility] 2021-12-15 13:49:14 Outpatient [facility], [facility] [id number] [facility] 2021-12-15 12:59:06 Outpatient Lomeli, Rj [facility] [id number] [facility] 2021-12-15 12:54:46 Outpatient Lomeli, Rj [facility] [id number] [facility] 2021-12-15 12:51:08 Outpatient Lomeli, Rj [facility] [id number] [facility] 2021-12-15 12:49:56 Outpatient Lomeli, Rj [facility] [id number] [facility] 2021-12-15 12:49:17 Outpatient Lomeli, Rj [facility] [id number] [facility] 2021-12-15 12:30:57 Outpatient Lomeli, Rj [facility] [id number] [facility] 2021-12-15 12:30:25 Outpatient [facility] [id number] [facility] 2024-02-15 00:00:00 2024-02-15 00:00:00 OFFICE VISIT ESTAB PT LEVEL 4 [facility] [id number] [facility] 2024-01-29 00:00:00 2024-01-29 00:00:00 (TEL) [facility] [id number] [facility] 2024-01-08 00:00:00 2024-01-08 00:00:00 (TEL) [facility] [id number] [facility] 2024-01-02 00:00:00 2024-01-02 00:00:00 (TEL) [facility]C [facility] [id number] [facility] 2023-12-19 00:00:00 2023-12-19 00:00:00 (TEL) [facility] [id number] [facility] 2023-12-14 00:00:00 2023-12-14 00:00:00 (TEL) [facility]C [facility] [id number] [facility] 2023-11-16 00:00:00 2023-11-16 00:00:00 (TEL) [facility] [id number] [facility] 2023-11-16 00:00:00 2023-11-16 00:00:00 OFFICE VISIT ESTAB PT LEVEL 4 [facility] [id number] [facility] 2023-11-15 00:00:00 2023-11-15 00:00:00 (TEL) [facility]C [facility] [id number] [facility] 2023-09-26 00:00:00 2023-09-26 00:00:00 (TEL) [facility]C [facility] [id number] [facility] 2023-08-28 00:00:00 2023-08-28 00:00:00 (TEL) [facility] [id number] [facility] 2023-08-17 00:00:00 2023-08-17 00:00:00 (TEL) [facility]C [facility] [id number] [facility] 2023-08-10 00:00:00 2023-08-10 00:00:00 OFFICE VISIT ESTAB PT LEVEL 4 [facility] [id number] [facility] 2023-06-12 00:00:00 2023-06-12 00:00:00 (TEL) [facility]C [facility] [id number] [facility] 2023-05-04 00:00:00 2023-05-04 00:00:00 OFFICE VISIT ESTAB PT LEVEL 4 [facility] [id number] [facility] 2023-05-04 00:00:00 2023-05-04 00:00:00 SUB ANNUAL [facility] VISIT [facility] [id number] [facility] 2023-03-17 00:00:00 2023-03-17 00:00:00 (TEL) [facility] [id number] [facility] 2023-01-31 00:00:00 2023-01-31 00:00:00 (TEL) [facility]C [facility] [id number] [facility] 2023-01-19 00:00:00 2023-01-19 00:00:00 OFFICE VISIT ESTAB PT LEVEL 4 [facility] [id number] [facility] 2022-11-15 00:00:00 2022-11-15 00:00:00 (TEL) [facility] [id number] [facility] 2022-11-10 00:00:00 2022-11-10 00:00:00 (TEL) [facility]C [facility] [id number] [facility] 2022-10-20 00:00:00 2022-10-20 00:00:00 OFFICE VISIT ESTAB PT LEVEL 4 [facility] [id number] [facility] 2022-09-12 00:00:00 2022-09-12 00:00:00 (TEL) [facility]C [facility] [id number] [facility] 2022-08-08 00:00:00 2022-08-08 00:00:00 (TEL) [facility] [id number] [facility] 2022-07-21 00:00:00 2022-07-21 00:00:00 OFFICE VISIT ESTAB PT LEVEL 4 [facility] [id number] [facility] 2022-07-18 00:00:00 2022-07-18 00:00:00 (TEL) [facility]C [facility] [id number] [facility] 2022-06-22 00:00:00 2022-06-22 00:00:00 OFFICE VISIT EST PT LEVEL 3 [facility] [id number] [facility] 2022-06-20 00:00:00 2022-06-20 00:00:00 (TEL) [facility]C [facility] [id number] [facility] 2022-04-14 00:00:00 2022-04-14 00:00:00 OFFICE VISIT ESTAB PT LEVEL 4 [facility] [id number] [facility] 2022-04-14 00:00:00 2022-04-14 00:00:00 SUB ANNUAL [facility] VISIT [facility] [id number] [facility] 2022-04-05 00:00:00 2022-04-05 00:00:00 (TEL) [facility]C [facility] [id number] [facility] 2022-03-24 00:00:00 2022-03-24 00:00:00 (TEL) [facility]C [facility] [id number] [facility] 2022-01-19 00:00:00 2022-01-19 00:00:00 OFFICE VISIT ESTAB PT LEVEL 4 [facility] [id number] [facility] 2021-12-30 00:00:00 2021-12-30 00:00:00 (TEL) [facility]C [facility] [id number] [facility] 2021-12-29 00:00:00 2021-12-29 00:00:00 (TEL) [facility]C [facility] [id number] [facility] 2021-11-09 00:00:00 2021-11-09 00:00:00 (TEL) [facility]C [facility] [id number] [facility] 2021-10-21 00:00:00 2021-10-21 00:00:00 OFFICE VISIT ESTAB PT LEVEL 4 [facility] [id number] [facility] 2021-08-02 00:00:00 2021-08-02 00:00:00 (TEL) [facility]C [facility] [id number] [facility] 2021-06-17 00:00:00 2021-06-17 00:00:00 Outpatient [facility] [id number] [facility] 2021-06-17 00:00:00 2021-06-17 00:00:00 Outpatient [facility] [id number] [facility] 2021-04-29 00:00:00 2021-04-29 00:00:00 Outpatient [facility] [id number] [facility] 2021-03-19 00:00:00 2021-03-19 00:00:00 Outpatient [facility] [id number] [facility] 2021-03-18 00:00:00 2021-03-18 00:00:00 Outpatient [facility] [id number] [facility] 2021-03-03 00:00:00 2021-03-03 00:00:00 Outpatient [facility] [id number] [facility] 2021-03-02 00:00:00 2021-03-02 00:00:00 Outpatient [facility] [id number] [facility] 2021-02-25 00:00:00 2021-02-25 00:00:00 Outpatient [facility] [id number] [facility] 2021-02-25 00:00:00 2021-02-25 00:00:00 Outpatient [facility] [id number] [facility] 2021-02-19 00:00:00 2021-02-19 00:00:00 Outpatient [facility] [id number] [facility] 2021-01-09 00:00:00 2021-01-09 00:00:00 Outpatient [facility] [id number] [facility] 2020-12-31 00:00:00 2020-12-31 00:00:00 Outpatient [facility] [id number] [facility] Results Test Description Test Time Test Comments Results Result Co mments Source HEMOGLOBIN [id number] 00:00:00* Test Item Value Reference Range Interpretation Comme nts HEMOGLOBIN A1c (test code = 4548-4) 7.8 % See_Comment H [Automated messa ge] The system which generated this result transmitted reference range: 4.2-5.6 %. The reference range was not used to interpret this result as normal/abnormal. VITAMIN D, 25 [id number] 00:00:00* Test Item Value Reference Range Interpretation Comme nts VITAMIN D, 25 OH (test code = 1989-3) 33 NG/ML SEE BELOW NG/ML LIPID PANEL WITH REFLEX DIRECT [id number] 00:00:00* Test Item Value Reference Range Interpretation Comme nts CALC LDL CHOL (test code = 79132-9) 122 MG/DL See_Comment H [Automated [employer] ge] The system which generated this result transmitted reference range: <100 MG/DL. The reference range was not used to interpret this result as normal/abnormal. CHOLESTEROL (test code = 2093-3) 207 MG/DL See_Comment H [Automated [employer] ge] The system which generated this result transmitted reference range: <200 MG/DL. The reference range was not used to interpret this result as normal/abnormal. HDL CHOLESTEROL (test code = 2085-9) 41 MG/DL See_Comment [Automated [employer] ge] The system which generated this result transmitted reference range: >39 MG/DL. The reference range was not used to interpret this result as normal/abnormal. RISK RATIO LDL/HDL (test code = 31048-2) 2.98 RATIO See_Comment [Automated message] The system which generated this result transmitted reference range: <3.22 RATIO. The reference range was not used to interpret this result as normal/abnormal. TRIGLYCERIDES (test code = 2571-8) 306 MG/DL See_Comment H [Automated [employer] ge] The system which generated this result transmitted reference range: <150 MG/DL. The reference range was not used to interpret this result as normal/abnormal. ALBUMIN/CREATININE RATIO, RANDOM [id number] 00:00:00* Test Item Value Reference Range Interpretation Comme nts ALBUMIN, URINE, RANDOM (test code = 86420-4) 1.9 MG/DL NOT ESTAB MG/DL CALC ALBUMIN/CREAT, RND (test code = 83502-0) 16 MG/G See_Comment [Automated [employer]] The system which generated this result transmitted reference range: <30 MG/G. The reference range was not used to interpret this result as normal/abnormal. CREATININE, URINE, CONC. (test code = 2161-8) 122.5 MG/DL NOT ESTAB MG/DL COMPREHENSIVE METABOLIC [id number] 00:00:00* Test Item Value Reference Range Interpretation Comme nts ALBUMIN (test code = 1751-7) 4.5 G/DL See_Comment [Automated messa ge] The system which generated this result transmitted reference range: 3.5-5.2 G/DL. The reference range was not used to interpret this result as normal/abnormal. ALKALINE PHOSPHATASE (test code = 6768-6) 87 U/L See_Comment [Automated message] The system which generated this result transmitted reference range: 40-142 U/L. The reference range was not used to interpret this result as normal/abnormal. BILIRUBIN, TOTAL (test code = 1975-2) 0.4 MG/DL See_Comment [Automated message] The system which generated this result transmitted reference range: <=1.2 MG/DL. The reference range was not used to interpret this result as normal/abnormal. BUN (test code = 3094-0) 19 MG/DL See_Comment [Automated messa ge] The system which generated this result transmitted reference range: 8-23 MG/DL. The reference range was not used to interpret this result as normal/abnormal. CALCIUM (test code = 50057-7) 10.3 MG/DL See_Comment [Automated messa ge] The system which generated this result transmitted reference range: 8.5-10.5 MG/DL. The reference range was not used to interpret this result as normal/abnormal. CALC A/G RATIO (test code = 1759-0) 2.4 RATIO See_Comment [Automated messa ge] The system which generated this result transmitted reference range: 1.0-2.6 RATIO. The reference range was not used to interpret this result as normal/abnormal. CALC BUN/CREAT (test code = 3097-3) 25 RATIO See_Comment [Automated messa ge] The system which generated this result transmitted reference range: 6-28 RATIO. The reference range was not used to interpret this result as normal/abnormal. CALC GLOBULIN (test code = 31678-1) 1.9 G/DL See_Comment [Automated messa ge] The system which generated this result transmitted reference range: 1.9-3.7 G/DL. The reference range was not used to interpret this result as normal/abnormal. CARBON DIOXIDE (test code = 1962-8) 24 MEQ/L See_Comment [Automated messa ge] The system which generated this result transmitted reference range: 19-31 MEQ/L. The reference range was not used to interpret this result as normal/abnormal. CHLORIDE (test code = 2075-0) 103 MEQ/L See_Comment [Automated messa ge] The system which generated this result transmitted reference range: 95-107 MEQ/L. The reference range was not used to interpret this result as normal/abnormal. CREATININE (test code = 2160-0) 0.77 MG/DL See_Comment [Automated messa ge] The system which generated this result transmitted reference range: 0.60-1.30 MG/DL. The reference range was not used to interpret this result as normal/abnormal. eGFR (2020 CKD-EPI) (test code = 74842-9) 80 ML/MIN/1.73 See_Comment [Automated messa ge] The system which generated this result transmitted reference range: >60 ML/MIN/1.73. The reference range was not used to interpret this result as normal/abnormal. GLUCOSE (test code = 1558-6) 274 MG/DL See_Comment H [Automated messa ge] The system which generated this result transmitted reference range: 70-99 MG/DL. The reference range was not used to interpret this result as normal/abnormal. POTASSIUM (test code = 2823-3) 4.4 MEQ/L See_Comment [Automated messa ge] The system which generated this result transmitted reference range: 3.5-5.4 MEQ/L. The reference range was not used to interpret this result as normal/abnormal. PROTEIN, TOTAL (test code = 2885-2) 6.4 G/DL See_Comment [Automated messa ge] The system which generated this result transmitted reference range: 6.1-8.3 G/DL. The reference range was not used to interpret this result as normal/abnormal. AST (test code = 1920-8) 18 U/L See_Comment [Automated messa ge] The system which generated this result transmitted reference range: 9-40 U/L. The reference range was not used to interpret this result as normal/abnormal. ALT (test code = 1742-6) 15 U/L See_Comment [Automated messa ge] The system which generated this result transmitted reference range: 5-40 U/L. The reference range was not used to interpret this result as normal/abnormal. SODIUM (test code = 2951-2) 139 MEQ/L See_Comment [Automated messa ge] The system which generated this result transmitted reference range: 133-146 MEQ/L. The reference range was not used to interpret this result as normal/abnormal. CBC W/AUTO [id number] 00:00:00* Test Item Value Reference Range Interpretation Comme nts NUCLEATED RBCS (test code = 52420-8) 0.0 /100 WBC'S See_Comment [Automated messa ge] The system which generated this result transmitted reference range: 0.0 /100 WBC'S. The reference range was not used to interpret this result as normal/abnormal. ABSOLUTE EOSINOPHILS (test code = 29389-7) 0.08 K/UL See_Comment [Automated messa ge] The system which generated this result transmitted reference range: 0.00-0.50 K/UL. The reference range was not used to interpret this result as normal/abnormal. ABSOLUTE LYMPHOCYTES (test code = 34086-1) 1.51 K/UL See_Comment [Automated messa ge] The system which generated this result transmitted reference range: 1.00-4.00 K/UL. The reference range was not used to interpret this result as normal/abnormal. ABSOLUTE MONOCYTES (test code = 14616-1) 0.56 K/UL See_Comment [Automated messa ge] The system which generated this result transmitted reference range: 0.20-1.00 K/UL. The reference range was not used to interpret this result as normal/abnormal. ABSOLUTE NEUTROPHILS (test code = 55218-0) 3.98 K/UL See_Comment [Automated messa ge] The system which generated this result transmitted reference range: 1.50-7.50 K/UL. The reference range was not used to interpret this result as normal/abnormal. BASOPHILS (test code = 99741-0) 0.5 % EOSINOPHILS (test code = 43677-0) 1.3 % HEMATOCRIT (test code = 09245-5) 38.6 % See_Comment [Automated messa ge] The system which generated this result transmitted reference range: 34.0-45.0 %. The reference range was not used to interpret this result as normal/abnormal. HEMOGLOBIN (test code = 718-7) 13.1 G/DL See_Comment [Automated messa ge] The system which generated this result transmitted reference range: 11.5-15.5 G/DL. The reference range was not used to interpret this result as normal/abnormal. LYMPHOCYTES (test code = 16953-1) 24.4 % MCH (test code = 95408-1) 30.0 PG See_Comment [Automated messa ge] The system which generated this result transmitted reference range: 25.0-33.0 PG. The reference range was not used to interpret this result as normal/abnormal. MCHC (test code = 63352-0) 33.9 G/DL See_Comment [Automated messa ge] The system which generated this result transmitted reference range: 31.0-36.0 G/DL. The reference range was not used to interpret this result as normal/abnormal. MCV (test code = 06746-0) 88.5 fL See_Comment [Automated messa ge] The system which generated this result transmitted reference range: 80.0-99.0 fL. The reference range was not used to interpret this result as normal/abnormal. MONOCYTES (test code = 48311-4) 9.1 % NEUTROPHILS (test code = 32105-9) 64.4 % PLATELET COUNT (test code = 55051-4) 225 K/UL See_Comment [Automated messa ge] The system which generated this result transmitted reference range: 130-400 K/UL. The reference range was not used to interpret this result as normal/abnormal. RBC (test code = 55294-7) 4.36 M/UL See_Comment [Automated messa ge] The system which generated this result transmitted reference range: 3.80-5.40 M/UL. The reference range was not used to interpret this result as normal/abnormal. RDW (test code = 78411-6) 12.4 % See_Comment [Automated messa ge] The system which generated this result transmitted reference range: 11.5-15.0 %. The reference range was not used to interpret this result as normal/abnormal. WBC (test code = 11958-2) 6.2 K/UL See_Comment [Automated messa ge] The system which generated this result transmitted reference range: 3.5-11.0 K/UL. The reference range was not used to interpret this result as normal/abnormal. HEMOGLOBIN [id number] 00:00:00* Test Item Value Reference Range Interpretation [facility] HEMOGLOBIN A1c (test code = 4548-4) 8.1 % See_Comment H [Automated messa ge] The system which generated this result transmitted reference range: 4.2-5.6 %. The reference range was not used to interpret this result as normal/abnormal. VITAMIN D, 25 [id number] 00:00:00* Test Item Value Reference Range Interpretation [facility] VITAMIN D, 25 OH (test code = 1989-3) 18 NG/ML SEE BELOW NG/ML L LIPID PANEL WITH REFLEX DIRECT [id number] 00:00:00* Test Item Value Reference Range Interpretation [facility] CALC LDL CHOL (test code = 68242-4) 159 MG/DL See_Comment H [Automated [employer] ge] The system which generated this result transmitted reference range: <100 MG/DL. The reference range was not used to interpret this result as normal/abnormal. CHOLESTEROL (test code = 2093-3) 254 MG/DL See_Comment H [Automated [employer]] The system which generated this result transmitted reference range: <200 MG/DL. The reference range was not used to interpret this result as normal/abnormal. HDL CHOLESTEROL (test code = 2085-9) 40 MG/DL See_Comment [Automated [employer]] The system which generated this result transmitted reference range: >39 MG/DL. The reference range was not used to interpret this result as normal/abnormal. RISK RATIO LDL/HDL (test code = 16936-7) 3.98 RATIO See_Comment H [Automated message] The system which generated this result transmitted reference range: <3.22 RATIO. The reference range was not used to interpret this result as normal/abnormal. TRIGLYCERIDES (test code = 2571-8) 355 MG/DL See_Comment H [Automated [employer]] The system which generated this result transmitted reference range: <150 MG/DL. The reference range was not used to interpret this result as normal/abnormal. ALBUMIN/CREATININE RATIO, RANDOM [id number] 00:00:00* Test Item Value Reference Range Interpretation Comme nts ALBUMIN, URINE, RANDOM (test code = 58562-3) 6.8 MG/DL NOT ESTAB MG/DL CALC ALBUMIN/CREAT, RND (test code = 80677-0) 72 MG/G See_Comment H [Automated messa ge] The system which generated this result transmitted reference range: <30 MG/G. The reference range was not used to interpret this result as normal/abnormal. CREATININE, URINE, CONC. (test code = 2161-8) 95.1 MG/DL NOT ESTAB MG/DL COMPREHENSIVE METABOLIC [id number] 00:00:00* Test Item Value Reference Range Interpretation Comme nts ALBUMIN (test code = 1751-7) 4.6 G/DL See_Comment [Automated messa ge] The system which generated this result transmitted reference range: 3.5-5.2 G/DL. The reference range was not used to interpret this result as normal/abnormal. ALKALINE PHOSPHATASE (test code = 6768-6) 83 U/L See_Comment [Automated message] The system which generated this result transmitted reference range: 40-142 U/L. The reference range was not used to interpret this result as normal/abnormal. BILIRUBIN, TOTAL (test code = 1975-2) 0.6 MG/DL See_Comment [Automated message] The system which generated this result transmitted reference range: <=1.2 MG/DL. The reference range was not used to interpret this result as normal/abnormal. BUN (test code = 3094-0) 14 MG/DL See_Comment [Automated messa ge] The system which generated this result transmitted reference range: 8-23 MG/DL. The reference range was not used to interpret this result as normal/abnormal. CALCIUM (test code = 06087-2) 10.0 MG/DL See_Comment [Automated messa ge] The system which generated this result transmitted reference range: 8.5-10.5 MG/DL. The reference range was not used to interpret this result as normal/abnormal. CALC A/G RATIO (test code = 1759-0) 2.9 RATIO See_Comment H [Automated messa ge] The system which generated this result transmitted reference range: 1.0-2.6 RATIO. The reference range was not used to interpret this result as normal/abnormal. CALC BUN/CREAT (test code = 3097-3) 20 RATIO See_Comment [Automated messa ge] The system which generated this result transmitted reference range: 6-28 RATIO. The reference range was not used to interpret this result as normal/abnormal. CALC GLOBULIN (test code = 04462-3) 1.6 G/DL See_Comment L [Automated messa ge] The system which generated this result transmitted reference range: 1.9-3.7 G/DL. The reference range was not used to interpret this result as normal/abnormal. CARBON DIOXIDE (test code = 1963-8) 27 MEQ/L See_Comment [Automated messa ge] The system which generated this result transmitted reference range: 19-31 MEQ/L. The reference range was not used to interpret this result as normal/abnormal. CHLORIDE (test code = 2075-0) 102 MEQ/L See_Comment [Automated messa ge] The system which generated this result transmitted reference range: 95-107 MEQ/L. The reference range was not used to interpret this result as normal/abnormal. CREATININE (test code = 2160-0) 0.70 MG/DL See_Comment [Automated messa ge] The system which generated this result transmitted reference range: 0.60-1.30 MG/DL. The reference range was not used to interpret this result as normal/abnormal. eGFR (2020 CKD-EPI) (test code = 15982-3) 90 ML/MIN/1.73 See_Comment [Automated messa ge] The system which generated this result transmitted reference range: >60 ML/MIN/1.73. The reference range was not used to interpret this result as normal/abnormal. GLUCOSE (test code = 1558-6) 252 MG/DL See_Comment H [Automated messa ge] The system which generated this result transmitted reference range: 70-99 MG/DL. The reference range was not used to interpret this result as normal/abnormal. POTASSIUM (test code = 2823-3) 4.1 MEQ/L See_Comment [Automated messa ge] The system which generated this result transmitted reference range: 3.5-5.4 MEQ/L. The reference range was not used to interpret this result as normal/abnormal. PROTEIN, TOTAL (test code = 2885-2) 6.2 G/DL See_Comment [Automated messa ge] The system which generated this result transmitted reference range: 6.1-8.3 G/DL. The reference range was not used to interpret this result as normal/abnormal. AST (test code = 1920-8) 16 U/L See_Comment [Automated messa ge] The system which generated this result transmitted reference range: 9-40 U/L. The reference range was not used to interpret this result as normal/abnormal. ALT (test code = 1742-6) 12 U/L See_Comment [Automated messa ge] The system which generated this result transmitted reference range: 5-40 U/L. The reference range was not used to interpret this result as normal/abnormal. SODIUM (test code = 2951-2) 140 MEQ/L See_Comment [Automated messa ge] The system which generated this result transmitted reference range: 133-146 MEQ/L. The reference range was not used to interpret this result as normal/abnormal. CBC W/AUTO [id number] 00:00:00* Test Item Value Reference Range Interpretation Comme nts NUCLEATED RBCS (test code = 64371-2) 0.0 /100 WBC'S See_Comment [Automated messa ge] The system which generated this result transmitted reference range: 0.0 /100 WBC'S. The reference range was not used to interpret this result as normal/abnormal. ABSOLUTE EOSINOPHILS (test code = 62242-6) 0.10 K/UL See_Comment [Automated messa ge] The system which generated this result transmitted reference range: 0.00-0.50 K/UL. The reference range was not used to interpret this result as normal/abnormal. ABSOLUTE LYMPHOCYTES (test code = 87779-5) 1.88 K/UL See_Comment [Automated messa ge] The system which generated this result transmitted reference range: 1.00-4.00 K/UL. The reference range was not used to interpret this result as normal/abnormal. ABSOLUTE MONOCYTES (test code = 07495-8) 0.61 K/UL See_Comment [Automated messa ge] The system which generated this result transmitted reference range: 0.20-1.00 K/UL. The reference range was not used to interpret this result as normal/abnormal. ABSOLUTE NEUTROPHILS (test code = 21562-5) 4.00 K/UL See_Comment [Automated messa ge] The system which generated this result transmitted reference range: 1.50-7.50 K/UL. The reference range was not used to interpret this result as normal/abnormal. BASOPHILS (test code = 37093-6) 0.6 % EOSINOPHILS (test code = 66907-2) 1.5 % HEMATOCRIT (test code = 46548-4) 38.2 % See_Comment [Automated messa ge] The system which generated this result transmitted reference range: 34.0-45.0 %. The reference range was not used to interpret this result as normal/abnormal. HEMOGLOBIN (test code = 718-7) 13.1 G/DL See_Comment [Automated messa ge] The system which generated this result transmitted reference range: 11.5-15.5 G/DL. The reference range was not used to interpret this result as normal/abnormal. LYMPHOCYTES (test code = 20054-3) 28.3 % MCH (test code = 43738-5) 31.2 PG See_Comment [Automated messa ge] The system which generated this result transmitted reference range: 25.0-33.0 PG. The reference range was not used to interpret this result as normal/abnormal. MCHC (test code = 33523-8) 34.3 G/DL See_Comment [Automated messa ge] The system which generated this result transmitted reference range: 31.0-36.0 G/DL. The reference range was not used to interpret this result as normal/abnormal. MCV (test code = 08015-3) 91.0 fL See_Comment [Automated messa ge] The system which generated this result transmitted reference range: 80.0-99.0 fL. The reference range was not used to interpret this result as normal/abnormal. MONOCYTES (test code = 62269-2) 9.2 % NEUTROPHILS (test code = 42313-1) 60.1 % PLATELET COUNT (test code = 93461-8) 246 K/UL See_Comment [Automated messa ge] The system which generated this result transmitted reference range: 130-400 K/UL. The reference range was not used to interpret this result as normal/abnormal. RBC (test code = 83434-6) 4.20 M/UL See_Comment [Automated messa ge] The system which generated this result transmitted reference range: 3.80-5.40 M/UL. The reference range was not used to interpret this result as normal/abnormal. RDW (test code = 50606-0) 12.3 % See_Comment [Automated messa ge] The system which generated this result transmitted reference range: 11.5-15.0 %. The reference range was not used to interpret this result as normal/abnormal. WBC (test code = 94213-5) 6.7 K/UL See_Comment [Automated messa ge] The system which generated this result transmitted reference range: 3.5-11.0 K/UL. The reference range was not used to interpret this result as normal/abnormal. HEMOGLOBIN [id number] 00:00:00* Test Item Value Reference Range Interpretation [facility] H[facility] A1c (test code = 4548-4) 8.5 % See_Comment H [Automated messa ge] The system which generated this result transmitted reference range: 4.2-5.6 %. The reference range was not used to interpret this result as normal/abnormal. VITAMIN D, 25 [id number] 00:00:00* Test Item Value Reference Range Interpretation [facility] VITAMIN D, 25 OH (test code = 1989-3) 32 NG/ML SEE BELOW NG/ML LIPID PANEL WITH REFLEX DIRECT [id number] 00:00:00* Test Item Value Reference Range Interpretation [facility] CALC LDL CHOL (test code = 51358-2) 133 MG/DL See_Comment H [Automated messa ge] The system which generated this result transmitted reference range: <100 MG/DL. The reference range was not used to interpret this result as normal/abnormal. CHOLESTEROL (test code = 2093-3) 208 MG/DL See_Comment H [Automated messa ge] The system which generated this result transmitted reference range: <200 MG/DL. The reference range was not used to interpret this result as normal/abnormal. HDL CHOLESTEROL (test code = 2085-9) 35 MG/DL See_Comment L [Automated messa ge] The system which generated this result transmitted reference range: >39 MG/DL. The reference range was not used to interpret this result as normal/abnormal. RISK RATIO LDL/HDL (test code = 31488-3) 3.80 RATIO See_Comment H [Automated message] The system which generated this result transmitted reference range: <3.22 RATIO. The reference range was not used to interpret this result as normal/abnormal. TRIGLYCERIDES (test code = 2571-8) 258 MG/DL See_Comment H [Automated messa ge] The system which generated this result transmitted reference range: <150 MG/DL. The reference range was not used to interpret this result as normal/abnormal. ALBUMIN/CREATININE RATIO, RANDOM [id number] 00:00:00* Test Item Value Reference Range Interpretation Comme nts ALBUMIN, URINE, RANDOM (test code = 50190-3) 7.6 MG/DL NOT ESTAB MG/DL CALC ALBUMIN/CREAT, RND (test code = 68190-4) 63 MG/G See_Comment H [Automated messa ge] The system which generated this result transmitted reference range: <30 MG/G. The reference range was not used to interpret this result as normal/abnormal. CREATININE, URINE, CONC. (test code = 2161-8) 120.3 MG/DL NOT ESTAB MG/DL COMPREHENSIVE METABOLIC [id number] 00:00:00* Test Item Value Reference Range Interpretation Comme nts ALBUMIN (test code = 1751-7) 4.5 G/DL See_Comment [Automated messa ge] The system which generated this result transmitted reference range: 3.5-5.2 G/DL. The reference range was not used to interpret this result as normal/abnormal. ALKALINE PHOSPHATASE (test code = 6768-6) 112 U/L See_Comment [Automated message] The system which generated this result transmitted reference range: 40-142 U/L. The reference range was not used to interpret this result as normal/abnormal. BILIRUBIN, TOTAL (test code = 1975-2) 0.4 MG/DL See_Comment [Automated message] The system which generated this result transmitted reference range: <=1.2 MG/DL. The reference range was not used to interpret this result as normal/abnormal. BUN (test code = 3094-0) 25 MG/DL See_Comment H [Automated messa ge] The system which generated this result transmitted reference range: 8-23 MG/DL. The reference range was not used to interpret this result as normal/abnormal. CALCIUM (test code = 82895-6) 10.3 MG/DL See_Comment [Automated messa ge] The system which generated this result transmitted reference range: 8.5-10.5 MG/DL. The reference range was not used to interpret this result as normal/abnormal. CALC A/G RATIO (test code = 1759-0) 2.1 RATIO See_Comment [Automated messa ge] The system which generated this result transmitted reference range: 1.0-2.6 RATIO. The reference range was not used to interpret this result as normal/abnormal. CALC BUN/CREAT (test code = 3097-3) 37 RATIO See_Comment H [Automated messa ge] The system which generated this result transmitted reference range: 6-28 RATIO. The reference range was not used to interpret this result as normal/abnormal. CALC GLOBULIN (test code = 54938-7) 2.1 G/DL See_Comment [Automated messa ge] The system which generated this result transmitted reference range: 1.9-3.7 G/DL. The reference range was not used to interpret this result as normal/abnormal. CARBON DIOXIDE (test code = 1963-8) 28 MEQ/L See_Comment [Automated messa ge] The system which generated this result transmitted reference range: 19-31 MEQ/L. The reference range was not used to interpret this result as normal/abnormal. CHLORIDE (test code = 2075-0) 105 MEQ/L See_Comment [Automated messa ge] The system which generated this result transmitted reference range: 95-107 MEQ/L. The reference range was not used to interpret this result as normal/abnormal. CREATININE (test code = 2160-0) 0.67 MG/DL See_Comment [Automated messa ge] The system which generated this result transmitted reference range: 0.60-1.30 MG/DL. The reference range was not used to interpret this result as normal/abnormal. eGFR (2020 CKD-EPI) (test code = 97646-3) 91 ML/MIN/1.73 See_Comment [Automated messa ge] The system which generated this result transmitted reference range: >60 ML/MIN/1.73. The reference range was not used to interpret this result as normal/abnormal. GLUCOSE (test code = 1558-6) 193 MG/DL See_Comment H [Automated messa ge] The system which generated this result transmitted reference range: 70-99 MG/DL. The reference range was not used to interpret this result as normal/abnormal. POTASSIUM (test code = 2823-3) 3.9 MEQ/L See_Comment [Automated messa ge] The system which generated this result transmitted reference range: 3.5-5.4 MEQ/L. The reference range was not used to interpret this result as normal/abnormal. PROTEIN, TOTAL (test code = 2885-2) 6.6 G/DL See_Comment [Automated messa ge] The system which generated this result transmitted reference range: 6.1-8.3 G/DL. The reference range was not used to interpret this result as normal/abnormal. AST (test code = 1920-8) 12 U/L See_Comment [Automated messa ge] The system which generated this result transmitted reference range: 9-40 U/L. The reference range was not used to interpret this result as normal/abnormal. ALT (test code = 1742-6) 14 U/L See_Comment [Automated messa ge] The system which generated this result transmitted reference range: 5-40 U/L. The reference range was not used to interpret this result as normal/abnormal. SODIUM (test code = 2951-2) 144 MEQ/L See_Comment [Automated messa ge] The system which generated this result transmitted reference range: 133-146 MEQ/L. The reference range was not used to interpret this result as normal/abnormal.
[2024-02-21] MEDS ORDERED: AMLODIPINE 10 MG TAB ONE (18:13)
[2024-02-21] MEDS ORDERED: NA CHLORIDE 0.9% 1,000 ML ONE (18:14)
[2024-02-21] MEDS ORDERED: cloNIDine HCL 0.1 MG TAB ONE (18:14)
[2024-02-21] MEDS ORDERED: LACTULOSE 20 GM/30 ML UCUP ONE (18:14)
[2024-02-21] MEDS ORDERED: BISACODYL 10 MG RECTAL SUPP ONE (18:14)
[2024-02-21 18:44] LABS: Absolute Basophils 0.1 K/uL (0-0.5); Absolute Lymphocytes (CBC) 1.1 K/uL (0.7-4.9); Absolute Monocytes 0.7 K/uL (0.1-1.3); Absolute Neutrophil 8.7 K/uL (1.8-8.0); Basophils % 0.5 % (0-1.3); Eosinophils % 0.4 % (0-4.4); Hematocrit 37.8 % (36.0-45.0); Hemoglobin 13.2 g/dL (12.0-15.0); Lymphocytes % 10.1 % (15.3-44.8); MCH 30.6 pg (27.0-35.0); MCHC 34.9 g/dL (32.0-36.0); MCV 87.7 fL (80-100); Monocytes % 6.9 % (3.3-12.3); Neutrophils % 82.1 % (41.7-73.7); Nucleated Red Blood Cells % 0.1 % (0-0); Platelets 217 thou/uL (152-406); RBC Red Blood Cell Count 4.31 M/uL (3.86-4.86); Red Cell Distribution Width 12.8 % (12.1-15.2)
[2024-02-21 18:45] LABS: PT Prothrombin Time 12.2 SECONDS (9.5-12.5)
--- NOTE | 2024-02-21 18:45 | RAD REPORT ---
[facility]26 [facility] CLINICAL HISTORY: ABDOMINAL DISTENTION COMPARISON: Chest Single View dated 10/24/2023; Abdomen 1 View (KUB) dated 06/17/2022 TECHNIQUE: Portable AP view of the chest. FINDINGS: The lungs are clear. No pneumothorax or effusion. The cardiomediastinal contours are unre markable. IMPRESSION: No acute cardiopulmonary process.
[2024-02-21 18:46] LABS: Protime INR 1.11
[2024-02-21] MEDS ORDERED: FENTANYL CITR 100 MCG/2 ML ONE (18:50)
[2024-02-21] MEDS ORDERED: ONDANSETRON 4 MG/2 ML VIAL ONE (18:50)
[2024-02-21 19:02] LABS: Albumin 3.7 g/dL (3.4-5.0); Albumin/Globulin Ratio 1.2 (1.1-1.8); Anion Gap 8.5 mEq/L (5.0-15.0); Bilirubin Direct 0.2 mg/dL (0-0.2); Bilirubin Indirect, Calculated 0.6 mg/dL (0.2-0.8); Bilirubin Total 0.8 mg/dL (0.2-1.0); Globulin 3.1 g/dL (2.3-3.5); Magnesium 1.5 mg/dL (1.6-2.4); Potassium 3.5 mEq/L (3.5-5.1); Protein, Total 6.8 g/dL (6.4-8.2); Troponin High Sensitivity 16.2 pg/mL (<58.9)
[2024-02-21] MEDS ORDERED: Magnesium Sulfate 2gm IVPB 2 G/50 ML BAG IV ONE (19:29)
--- NOTE | 2024-02-21 20:35 | RAD REPORT ---
EXAM DESCRIPTION: CT - Abdomen Pelvis Wo Contrast - 02/21/2024 8:00 pm CLINICAL HISTORY: Abd pain;Constipation COMPARISON: No comparisons TECHNIQUE: Thin cut axial CT imaging of the abdomen and pelvis was performed without IV contrast. Mu ltiplanar reformats were generated and reviewed. All CT scans are performed using dose optimization technique as appropriate and may include automated exposure control or mA/KV adjustment according to patient size. FINDINGS: No suspicious findings in the lung bases. Elevation of the right hemidiaphragm. The liver, spleen, adrenal glands, and pancreas show no suspicious findings. Gallbladder was surgical ly removed. Symmetric renal contour, without suspicious parenchymal findings within limits of noncontrast techniq ue. No evidence of radiopaque calculi or hydroureteronephrosis. No dilated bowel loops or bowel wall thickening. Orally ingested contrast reaches the descending colo n, with no significant stool burden. No free air, free fluid or inflammatory stranding. No hernia, ma ss or bulky lymphadenopathy. Status post hysterectomy. The urinary bladder is without significant fin ding. No suspicious bony findings. IMPRESSION: No acute intra-abdominal process. Incidental findings as above.
--- NOTE | 2024-02-21 20:40 | EDPHYS ---
Physician Documentation [facility] Name: Stephanie Thao Age: 78 yrs Sex: Female : 1945 Arrival Date: 02/21/2024 Time: 17:46 Bed 5 Private MD: ED Physician Josh Joshi HPI: 02/20 18:09 This 78 yrs old Female presents to ER via EMS with complaints of umair Constipation, Blood Pressure Problem. 18:09 The patient presents with abdominal pain abdominal distention in the upper abdomen, in umair the lower abdomen. Onset: The symptoms/episode began/occurred 2 day(s) ago. The symptoms do not radiate. Associated signs and symptoms: none. The symptoms are described as constant, crampy. Modifying factors: The symptoms are alleviated by nothing, the symptoms are aggravated by nothing. Severity of pain: At its worst the pain was moderate in the emergency department the pain is unchanged. The patient has experienced similar episodes in the past, several times. Historical: - Allergies: 17:53 Macrobid; ld1 - PMHx: 17:53 bowel obstruction; diabetes mellitus; Hypertensive disorder; Myocardial infarction; ld1 - PSHx: 17:53 Cholecystectomy; Heart Stents; hysterectomy; ld1 - Immunization history:: Adult Immunizations up to date. - Infectious Disease History:: Denies. - Social history:: Smoking status: Patient denies any tobacco usage or history of. Patient/guardian denies using alcohol. - Family history:: not pertinent. ROS: 18:09 Constitutional: Negative for fever, chills, and weight loss, Eyes: Negative for injury, umair pain, redness, and discharge, ENT: Negative for injury, pain, and discharge, Neck: Negative for injury, pain, and swelling, Cardiovascular: Negative for chest pain, palpitations, and edema, Respiratory: Negative for shortness of breath, cough, wheezing, and pleuritic chest pain, Back: Negative for injury and pain, : Negative for injury, bleeding, discharge, and swelling, MS/Extremity: Negative for injury and deformity, Skin: Negative for injury, rash, and discoloration, Neuro: Negative for headache, weakness, numbness, tingling, and seizure, Psych: Negative for depression, anxiety, suicide ideation, homicidal ideation, and hallucinations, Allergy/Immunology: Negative for hives, rash, and allergies, Endocrine: Negative for neck swelling, polydipsia, polyuria, polyphagia, and marked weight changes, Hematologic/Lymphatic: Negative for swollen nodes, abnormal bleeding, and unusual bruising, 18:09 Abdomen/GI: Positive for abdominal pain, constipation, of the right upper quadrant, left upper quadrant, right lower quadrant and left lower quadrant, Exam: 18:09 Constitutional: This is a well developed, well nourished patient who is awake, alert, umair and in no acute distress. Head/Face: Normocephalic, atraumatic. Eyes: Pupils equal round and reactive to light, extra-ocular motions intact. Lids and lashes normal. Conjunctiva and sclera are non-icteric and not injected. Cornea within normal limits. Periorbital areas with no swelling, redness, or edema. ENT: Nares patent. No nasal discharge, no septal abnormalities noted. Tympanic membranes are normal and external auditory canals are clear. Oropharynx with no redness, swelling, or masses, exudates, or evidence of obstruction, uvula midline. Mucous membranes moist. Neck: Trachea midline, no thyromegaly or masses palpated, and no cervical lymphadenopathy. Supple, full range of motion without nuchal rigidity, or vertebral point tenderness. No Meningismus. Chest/axilla: Normal chest wall appearance and motion. Nontender with no deformity. No lesions are appreciated. Cardiovascular: Regular rate and rhythm with a normal S1 and S2. No gallops, murmurs, or rubs. Normal PMI, no JVD. No pulse deficits. Respiratory: Lungs have equal breath sounds bilaterally, clear to auscultation and percussion. No rales, rhonchi or wheezes noted. No increased work of breathing, no retractions or nasal flaring. Abdomen/GI: Soft, non-tender, with normal bowel sounds. No distension or tympany. No guarding or rebound. No evidence of tenderness throughout. Back: No spinal tenderness. No costovertebral tenderness. Full range of motion. Female : Normal external genitalia. Skin: Warm, dry with normal turgor. Normal color with no rashes, no lesions, and no evidence of cellulitis. MS/ Extremity: Pulses equal, no cyanosis. Neurovascular intact. Full, normal range of motion. Neuro: Awake and alert, GCS 15, oriented to person, place, time, and situation. Cranial nerves II-XII grossly intact. Motor strength 5/5 in all extremities. Sensory grossly intact. Cerebellar exam normal. Normal gait. Psych: Awake, alert, with orientation to person, place and time. Behavior, mood, and affect are within normal limits. 19:18 ECG was reviewed by the Attending Physician. [facility] Vital Signs: 17:52 BP 202 / 100; Pulse 81; Resp 18; Temp 98.7(TE); Pulse Ox 99% on R/A; Weight 73.48 kg; ld1 Height 5 ft. 6 in. ; Pain 0/10; 18:36 BP 185 / 95; Pulse 77; Resp 18; Pulse Ox 100% on R/A; ld1 19:50 BP 140 / 84; Pulse 82; Resp 16 S; Pulse Ox 98% on R/A; lg3 17:52 Body Mass Index 26.15 (73.48 kg, 167.64 cm) ld1 17:52 Pain Scale: Adult ld1 MDM: 17:58 Patient medically screened. umair 18:11 Differential diagnosis: bowel obstruction, Cholelithiasis, diverticulitis, gastritis, umair gastroesophageal reflux disease, Irritable bowel syndrome, Mesenteric ischemia or infarction, non-specific abd pain, pancreatitis, Peptic Ulcer Disease, Pyelonephritis, urinary tract infection. Data reviewed: vital signs, nurses notes, lab test result(s), EKG, radiologic studies, CT scan, plain films. Consideration of Admission/Observation Escalation of care including admission/observation considered. I considered the following discharge prescriptions or medication management in the emergency department Medications were administered in the Emergency Department. See MAR. Independent interpretation of the following test(s) in the Emergency Department EKG: See my EKG interpretation above. Test considered but Not performed: Ultrasound NO ABD USG. Historians other than the Patient: PATIENT WELL INFORMED. Care significantly affected by the following chronic conditions: Diabetes, Hypertension, Obesity, SBO, CAD, RI. Counseling: I had a detailed discussion with the patient and/or guardian regarding the historical points, exam findings, and any diagnostic results supporting the discharge/admit diagnosis, the presence of at least one elevated blood pressure reading (>120/80) during this emergency department visit, lab results, radiology results, the need for outpatient follow up, for definitive care, 02/20 18:01 Order name: Basic Metabolic Panel; Complete Time: 19:19 umair 04 18:01 Order name: CBC with Diff; Complete Time: 19:19 umair 04 18:01 Order name: LFT's; Complete Time: 19:19 umair 04 18:01 Order name: Magnesium; Complete Time: 19: umair 04 18:01 Order name: NT PRO-BNP; Complete Time: 19:19 umair 04 18:01 Order name: PT-INR; Complete Time: 19: umair 04 18:01 Order name: Troponin HS; Complete Time: 19: umair 04 18:01 Order name: Lipase; Complete Time: 19: umair 04 18:01 Order name: XRAY Chest (1 view); Complete Time: 19: umair 04 18:05 Order name: Abdomen ; Complete Time: 20:39 EDMS 04 18:01 Order name: Cardiac monitoring; Complete Time: 18:33 umair 04 18:01 Order name: EKG - Nurse/Tech; Complete Time: 19: umair 02/20 18:01 Order name: IV Saline Lock; Complete Time: 18: umair 02/20 18:01 Order name: Labs collected and sent; Complete Time: 18:33 umair 02/20 18:01 Order name: O2 Per Protocol; Complete Time: 18: umair 02/20 18:01 Order name: O2 Sat Monitoring; Complete Time: 18:09 umair EC:18 Rate is 77 beats/min. Rhythm is regular. QRS Dudley is Normal. RI interval is normal. QRS umair interval is normal. QT interval is normal. No Q waves. T waves are Normal. No ST changes noted. Clinical impression: NSR w/ Non-specific ST/T Changes and No evidence of ischemia. Interpreted by me. Reviewed by me. Administered Medications: 18: Drug: cloNIDine PO 0.1 mg PO once Route: PO; ld1 18: Drug: Norvasc PO 10 mg PO once Route: PO; ld1 18:34 Drug: NS 0.9% IV 1000 ml IV at 1 bolus Per protocol; 1000 mL bolus Route: IV; Rate: 1 ld1 bolus; Site: right forearm; 18:34 Drug: Lactulose PO 30 grams 45 ml PO once Volume: 45 ml; Route: PO; ld1 18:34 Drug: Dulcolax RI Suppository 10 mg RI once Route: RI; ld1 19:06 Drug: fentaNYL (PF) IVP 50 mcg IVP once Route: IVP; Site: right forearm; ld1 19:06 Drug: Ondansetron IVP 4 mg IVP once; over 2 minutes Route: IVP; Site: right forearm; ld1 19:53 Drug: Magnesium Sulfate IVPB 2 grams IVPB once over 1 hrs Route: IVPB; Infused Over: 1 lg3 hrs; Site: right antecubital; Disposition Summary: 02/21/24 20:39 Discharge Ordered Notes: Location: Home kb Problem: new kb Symptoms: have improved kb Condition: Stable kb Diagnosis - Abdominal pain, Generalized kb - Essential (primary) hypertension kb - Constipation kb - Hypomagnesemia kb Followup: umair - With: Private Physician - When: 2 - 3 days - Reason: Recheck today's complaints, Continuance of care, Re-evaluation by your physician Followup: umair - With: Yevgeniy Dsouza MD - When: 2 - 3 days - Reason: Recheck today's complaints, Re-evaluation by your physician Discharge Instructions: - Discharge Summary Sheet umair - Abdominal Pain, Adult umair - Constipation, Adult umair - Hypertension, Adult umair - Hypomagnesemia umair - Constipation, Adult, [id number] umair - Hypertension, Adult, Krtu-bj-Ipir umair - How to Take Your Blood Pressure, [id number] umair - Aspirin and Your Heart umair - Managing Your Hypertension umair - Chronic Constipation umair Forms: - Medication Reconciliation Form kb - Thank You Letter kb - Antibiotic Education kb - Prescription Opioid Use kb - Patient Portal Instructions kb - Leadership Thank You Letter kb Prescriptions: - Dulcolax (bisacodyl) 10 mg Rectal suppository - insert 1 suppository RECTAL route every 12 hours for 3 days; 6 suppository; umair Refills: 0, Product Selection Permitted - Norvasc 5 mg Oral Tablet - take 1 tablet ORAL route once daily; 20 tablet; Refills: 0, Product Selection umair Permitted - Lactulose 10 gram/15 mL Oral Solution - take 30 milliliters ORAL route once daily; 300 milliliter; Refills: 0, Product umair Selection Permitted Signatures: Dispatcher [employer] Pili Miller, JOSIAH-C MANDREL CLEANER-Josh Crespo MD MD cha Able, Lacie, RN RN lg3 Xenia Garzon RN RN ld1 Corrections: (The following items were deleted from the chart) 18:02 18:02 Abdomen Pelvis W Con+[id number].RAD.BRZ ordered. EDMS EDMS
--- NOTE | 2024-02-21 20:40 | ER ---
Nurse's Notes [facility] Name: Stephanie Thao Age: 78 yrs Sex: Female : 1945 Arrival Date: 02/21/2024 Time: 17:46 Bed 5 Private MD: Diagnosis: Abdominal pain, Generalized;Essential (primary) hypertension;Constipation;Hypomagnesemia Presentation: 02/20 17:52 Chief complaint: EMS states: toned out to patient home for constipation X 2-3 days. ld1 Hypertension upon arrival to ER>. Coronavirus screen: At this time, the client does not indicate any symptoms associated with coronavirus-19. Ebola Screen: No symptoms or risks identified at this time. Initial Sepsis Screen: Does the patient meet any 2 criteria? No. Patient's initial sepsis screen is negative. Does the patient have a suspected source of infection? No. Patient's initial sepsis screen is negative. Risk Assessment: Do you want to hurt yourself or someone else? Patient reports no desire to harm self or others. Onset of symptoms was February 21, 2024. 17:52 Method Of Arrival: EMS: [facility] ld1 17:52 Acuity: MADY 3 ld1 Triage Assessment: 17:53 General: Appears in no apparent distress. comfortable, Behavior is calm, cooperative, ld1 appropriate for age. Pain: Denies pain. EENT: No signs and/or symptoms were reported regarding the EENT system. Neuro: Level of Consciousness is awake, alert, obeys commands, Oriented to person, place, time, situation. Cardiovascular: Capillary refill < 3 seconds Patient's skin is warm and dry. Respiratory: Airway is patent Respiratory effort is even, unlabored. GI: Abdomen is round non-distended. : No signs and/or symptoms were reported regarding the genitourinary system. Derm: No signs and/or symptoms reported regarding the dermatologic system. Musculoskeletal: No signs and/or symptoms reported regarding the musculoskeletal system. Historical: - Allergies: 17:53 Macrobid; ld1 - PMHx: 17:53 bowel obstruction; diabetes mellitus; Hypertensive disorder; Myocardial infarction; ld1 - PSHx: 17:53 Cholecystectomy; Heart Stents; hysterectomy; ld1 - Immunization history:: Adult Immunizations up to date. - Infectious Disease History:: Denies. - Social history:: Smoking status: Patient denies any tobacco usage or history of. Patient/guardian denies using alcohol. - Family history:: not pertinent. Screenin:57 [facility] ED Fall Risk Assessment (Adult) History of falling in the last 3 months, ld1 including since admission No falls in past 3 months (0 pts). Abuse screen: Denies threats or abuse. Denies injuries from another. Nutritional screening: No deficits noted. Tuberculosis screening: No symptoms or risk factors identified. Assessment: 17:57 Reassessment: See triage assessment. ld1 19:10 General: Appears in no apparent distress. comfortable, Behavior is calm, cooperative. lg3 Pain: Denies pain. Neuro: No deficits noted. Rader Agitation-Sedation Scale (RASS): 0 - Alert and Calm Level of Consciousness is awake, alert, obeys commands, Oriented to person, place, time, situation. Cardiovascular: No deficits noted. Denies chest pain, shortness of breath, Capillary refill < 3 seconds Clubbing of nail beds is absent JVD is absent Patient's skin is warm and dry. Respiratory: No deficits noted. Airway is patent Respiratory effort is even, unlabored, Respiratory pattern is regular, symmetrical. GI: Abdomen is round non-distended, obese, Bowel sounds present X 4 quads. Abd is soft and non tender X 4 quads. Reports constipation. : No deficits noted. No signs and/or symptoms were reported regarding the genitourinary system. EENT: No deficits noted. No signs and/or symptoms were reported regarding the EENT system. Derm: No deficits noted. No signs and/or symptoms reported regarding the dermatologic system. Skin is intact, is healthy with good turgor, Skin is dry, Skin is normal, Skin temperature is warm. Musculoskeletal: No deficits noted. No signs and/or symptoms reported regarding the musculoskeletal system. Circulation, motion, and sensation intact. Range of motion: intact in all extremities. 22:43 Reassessment: Patient appears in no apparent distress at this time. Patient and/or jb4 family updated on plan of care and expected duration. Pain level reassessed. Patient is alert, oriented x 3, equal unlabored respirations, skin warm/dry/pink. Patient states feeling better. Vital Signs: 17:52 BP 202 / 100; Pulse 81; Resp 18; Temp 98.7(TE); Pulse Ox 99% on R/A; Weight 73.48 kg; ld1 Height 5 ft. 6 in. ; Pain 0/10; 18:36 BP 185 / 95; Pulse 77; Resp 18; Pulse Ox 100% on R/A; ld1 19:50 BP 140 / 84; Pulse 82; Resp 16 S; Pulse Ox 98% on R/A; lg3 17:52 Body Mass Index 26.15 (73.48 kg, 167.64 cm) ld1 17:52 Pain Scale: Adult ld1 ED Course: 17:52 Patient arrived in ED. ld1 17:53 Triage completed. ld1 17:53 Arm band placed on right wrist. ld1 17:57 Patient has correct armband on for positive identification. Placed in gown. Bed in low ld1 position. Call light in reach. Side rails up X2. monitoring manager on. Pulse ox on. NIBP on. Door closed. Noise minimized. Warm blanket given. 17:57 No provider procedures requiring assistance completed. ld1 17:57 Inserted saline lock: 20 gauge in right forearm, using aseptic technique. ld1 17:58 Josh Joshi MD is Attending Physician. umair 18:28 XRAY Chest (1 view) In Process Unspecified. EDMS 18:36 Xenia Garzon, CANDY is Primary Nurse. ld1 19:04 EKG done, by ED staff. jg11 19:25 Assisted to bedside commode. lg3 20:01 Abdomen In Process Unspecified. EDMS 20:39 Yevgeniy Dsouza MD is Referral Physician. kb 22:43 Provided Education on: discharge instructions. jb4 22:43 IV discontinued, intact, bleeding controlled, No redness/swelling at site. Pressure jb4 dressing applied. Administered Medications: 18:26 Drug: cloNIDine PO 0.1 mg PO once Route: PO; ld1 18:26 Drug: Norvasc PO 10 mg PO once Route: PO; ld1 18:34 Drug: NS 0.9% IV 1000 ml IV at 1 bolus Per protocol; 1000 mL bolus Route: IV; Rate: 1 ld1 bolus; Site: right forearm; 18:34 Drug: Lactulose PO 30 grams 45 ml PO once Volume: 45 ml; Route: PO; ld1 18:34 Drug: Dulcolax [place] Suppository 10 mg TX once Route: TX; ld1 19:06 Drug: fentaNYL (PF) IVP 50 mcg IVP once Route: IVP; Site: right forearm; ld1 19:06 Drug: Ondansetron IVP 4 mg IVP once; over 2 minutes Route: IVP; Site: right forearm; ld1 19:53 Drug: Magnesium Sulfate IVPB 2 grams IVPB once over 1 hrs Route: IVPB; Infused Over: 1 lg3 hrs; Site: right antecubital; Medication: 17:57 VIS not applicable for this client. ld1 Outcome: 20:39 Discharge ordered by . kb 22:43 Discharged to home ambulatory, jb4 22:43 Condition: stable 22:43 Discharge instructions given to patient, Instructed on discharge instructions, follow up and referral plans. medication usage, Demonstrated understanding of instructions, follow-up care, medications, Prescriptions given X 3, 22:45 Patient left the ED. jb4 Signatures: Dispatcher [employer] EDMS Pili Berry, TRAFFIC CONTROL OPERATOR-C TRAFFIC CONTROL OPERATOR-Ckb Josh Joshi MD MD cha Bryson, James, RN RN jb4 Dulce Nieto RN RN lg3 Xenia Garzon RN RN ld1 Eliecer Lott jg11 Corrections: (The following items were deleted from the chart) 19:54 19:50 General: Appears in no apparent distress. comfortable, Behavior is calm, lg3 cooperative, lg3 19:54 19:50 Pain: Denies pain. lg3 lg3 19:54 19:50 Neuro: No deficits noted. Rader Agitation-Sedation Scale (RASS): 0 - Alert and lg3 Calm Level of Consciousness is awake, alert, obeys commands, Oriented to person, place, time, situation, lg3 19:54 19:50 Cardiovascular: No deficits noted. Denies chest pain, shortness of breath, lg3 Capillary refill < 3 seconds Clubbing of nail beds is absent JVD is absent Patient's skin is warm and dry. lg3 19:54 19:50 Respiratory: No deficits noted. Airway is patent Respiratory effort is even, lg3 unlabored, Respiratory pattern is regular, symmetrical, lg3 19:54 19:50 GI: Abdomen is round non-distended, obese, Bowel sounds present X 4 quads. Abd is lg3 soft and non tender X 4 quads. Reports constipation, lg3 19:54 19:50 : No deficits noted. No signs and/or symptoms were reported regarding the lg3 genitourinary system. lg3 :54 19:50 EENT: No deficits noted. No signs and/or symptoms were reported regarding the lg3 EENT system. lg3 : 19:50 Derm: No deficits noted. No signs and/or symptoms reported regarding the lg3 dermatologic system. Skin is intact, is healthy with good turgor, Skin is dry, Skin is normal, Skin temperature is warm lg3 :54 19:50 Musculoskeletal: No deficits noted. No signs and/or symptoms reported regarding lg3 the musculoskeletal system. Circulation, motion, and sensation intact. Range of motion: intact in all extremities, lg3
[2024-02-21 23:12] VITALS: BP 140/84; TEMP 98.7; O2SAT 98
--- NOTE | 2024-02-22 15:40 | EKG ---
Test Date: 2024-02-21 Test Time: 19:00:06 Development Engineer: MARY MEASUREMENT RESULTS: Intervals: Rate: 77 MN: 178 QRSD: 98 QT: 396 QTc: 448 Forrest: P: 61 MN: 178 QRS: -19 T: 69 INTERPRETIVE STATEMENTS: Normal sinus rhythm Septal infarct, age undetermined Abnormal ECG Compared to ECG 10/24/2023 15:22:32 Myocardial infarct finding now present ST (T wave) deviation no longer present Possible ischemia no longer present Electronically Signed On 02-22-24 15:39:15 CDT by Yevgeniy Dsouza
== END 2024-02-21 22:45 | disposition home or self-care (01) ==
LOC: ER 17:46
DX: K59.00 Constipation, unspecified (principal); I10 Essential (primary) hypertension; E83.42 Hypomagnesemia; Z95.818 Presence of other cardiac implants and grafts; Z88.1 Allergy status to other antibiotic agents
CPT/HCPCS: 85025; 80048; 36415; 83735; 85610; 80076; 84484; 83690; 83880; 74176; 71045; J3475; J3010; J2405; J7030; 93005

== ENCOUNTER 2024-08-20 16:27 | Inpatient (IN) | payer OTHER ==
--- OUTSIDE RECORDS SUMMARY | 2024-08-20 16:30 | XMS REPORT | Continuity of Care Document ---
Author Name Unknown Address [address] [facility] [address] [place] [address] [facility] thconnect Address [address] [facility] [address] [place] [address] Care Team Providers Care Broke Man Name Role Phone jR Lomeli Attending Clinician Unavailable Payers Payer Name Policy Type Policy Number Effective Date Expirati on Date Source [facility] [employer] TRS/ERS MCR PPO 1 [id number] 2023 00:00:00 [facility] Problems Condition Name Condition Details Condition Category Status Onset Date Resolution Date Last Treatment Date Treating Clinician Comments Source [id number] Type 2 diabetes mellitus with other diabetic kidney complicati on Problem [facility] [id number] Vitamin D deficiency Problem [facility] [id number] Constipati on, unspecifie d constipati on type Problem [facility] [id number] Mixed hyperlipid emia Problem [facility] [id number] Stented coronary artery Problem [facility] [id number] Memory change Problem [facility] [id number] HZV (herpes zoster virus) post herpetic neuralgia Problem [facility] [id number] 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 ) Problem [facility] [id number] Dementia without behavioral disturbanc e, unspecifie d dementia type Problem [facility] [id number] Diabetic polyneurop athy associated with type 2 diabetes mellitus Problem [facility] [id number] Essential hypertensi on Problem [facility] [id number] Asymptomat ic hypertensi ve urgency Problem [facility] [id number] Coronary artery disease involving [place] coronary artery of [place] heart with angina pectoris Problem [facility] [id number] Type 2 diabetes mellitus with hyperglyce ubaldo, without long-term current use of insulin Problem [facility] Social History Social Habit Start Date Stop Date Quantity Comments Source History of Tobacco Use [facility] Sex Assigned At [facility] Smoking Status Start Date Stop Date Source Never Smoker [facility] Medications Ordered Medication Name Filled Medication Name Start Date Stop Date Current Medication? Ordering Clinician Indication Dosage Frequency Signature (SIG) Comments Components Source Tradjenta 5 MG Tradjenta 5 MG No 1{table t} QD Tradjenta 5 MG Losartan Potassium 25 MG Losartan Potassium 25 MG No 1{table t} QD Losartan Potassium 25 MG Metoprolol Succinate ER 25 MG Metoprolol Succinate ER 25 MG No QD Metoprolol Succinate ER 25 MG Aspirin 81 81 MG Aspirin 81 81 MG No 1{table t} QD Aspirin 81 81 MG Vitamin D3 09770 UNIT Vitamin D3 18989 UNIT No 1{capsu le} Vitamin D3 88551 UNIT Ezetimibe 10 MG Ezetimibe 10 MG No 1{table t} QD Ezetimibe 10 MG Gabapentin 600 MG Gabapentin 600 MG No 1{capsu le_at_b edtime} QD Gabapentin 600 MG Plavix 75 MG Plavix 75 MG No 1{table t} QD Plavix 75 MG Lidocaine 5 % Lidocaine 5 % No 1{appli cation_ as_need ed} TID Lidocaine 5 % glipiZIDE ER 2.5 MG glipiZIDE ER 2.5 MG No 1{table t_with_ food} BID glipiZIDE ER 2.5 MG Vital Signs Vital Name Observation Time Observation Value Comments Natalie steve height 2024-05-30 10:00:00 64 [in_i] Commo n [facility] weight 2024-05-30 10:00:00 156 [lb_av] Comm on [facility] temperature 2024-05-30 10:00:00 97.3 [degF] Com [facility] bmi 2024-05-30 10:00:00 26.77 kg/m2 Comm on [facility] oximetry 2024-05-30 10:00:00 97 % Commo n [facility] blood pressure systolic 2024-05-30 10:00:00 143 mm[Hg] [facility] blood pressure diastolic 2024-05-30 10:00:00 82 mm[Hg] [facility] height 2024-05-30 10:20:00 64 [in_i] Commo n [facility] weight 2024-05-30 10:20:00 156 [lb_av] Comm on [facility] temperature 2024-05-30 10:20:00 97.3 [degF] Com [facility] bmi 2024-05-30 10:20:00 26.77 kg/m2 Comm on [facility] oximetry 2024-05-30 10:20:00 97 % Commo n [facility] respiratory rate 2024-05-30 10:20:00 18 /min [facility] blood pressure systolic 2024-05-30 10:20:00 134 mm[Hg] Common [facility] blood pressure diastolic 2024-05-30 10:20:00 82 mm[Hg] [facility] height 2024-02-15 09:20:00 64 [in_i] Commo n [facility] weight 2024-02-15 09:20:00 159.0 [lb_av] Co mmon [facility] temperature 2024-02-15 09:20:00 97.4 [degF] Com [facility] bmi 2024-02-15 09:20:00 27.29 kg/m2 Comm on [facility] oximetry 2024-02-15 09:20:00 99 % Commo n [facility] respiratory rate 2024-02-15 09:20:00 18 /min Common [facility] blood pressure systolic 2024-02-15 09:20:00 135 mm[Hg] Common [facility] blood pressure diastolic 2024-02-15 09:20:00 76 mm[Hg] Common [facility] height 2023-11-16 09:10:00 64 [in_i] Commo n [facility] weight 2023-11-16 09:10:00 165.8 [lb_av] Co [facility] temperature 2023-11-16 09:10:00 97.3 [degF] Com [facility] bmi 2023-11-16 09:10:00 28.46 kg/m2 Comm on [facility] oximetry 2023-11-16 09:10:00 98 % Commo n [facility] blood pressure systolic 2023-11-16 09:10:00 137 mm[Hg] Common [facility] blood pressure diastolic 2023-11-16 09:10:00 74 mm[Hg] [facility] height 2023-08-10 09:20:00 64 [in_i] Commo n [facility] weight 2023-08-10 09:20:00 167.0 [lb_av] Co [facility] temperature 2023-08-10 09:20:00 97.7 [degF] Com [facility] bmi 2023-08-10 09:20:00 28.66 kg/m2 Comm on [facility] oximetry 2023-08-10 09:20:00 97 % Commo n [facility] respiratory rate 2023-08-10 09:20:00 18 /min Common [facility] blood pressure systolic 2023-08-10 09:20:00 139 mm[Hg] [facility] blood pressure diastolic 2023-08-10 09:20:00 77 mm[Hg] Common [facility] height 2023-05-04 09:20:00 64 [in_i] Commo n [facility] weight 2023-05-04 09:20:00 166.6 [lb_av] Co on [facility] temperature 2023-05-04 09:20:00 97.8 [degF] Com [facility] bmi 2023-05-04 09:20:00 28.59 kg/m2 Comm on [facility] oximetry 2023-05-04 09:20:00 99 % Commo n [facility] respiratory rate 2023-05-04 09:20:00 18 /min [facility] blood pressure systolic 2023-05-04 09:20:00 132 mm[Hg] [facility] blood pressure diastolic 2023-05-04 09:20:00 70 mm[Hg] [facility] height 2023-05-04 09:20:00 64 [in_i] Commo n [facility] weight 2023-05-04 09:20:00 166.6 [lb_av] Co mmon [facility] temperature 2023-05-04 09:20:00 97.8 [degF] Com mon [facility] bmi 2023-05-04 09:20:00 28.59 kg/m2 Comm on [facility] oximetry 2023-05-04 09:20:00 99 % Commo n [facility] respiratory rate 2023-05-04 09:20:00 18 /min [facility] blood pressure systolic 2023-05-04 09:20:00 132 mm[Hg] Common [facility] blood pressure diastolic 2023-05-04 09:20:00 70 mm[Hg] Common [facility] height 2023-01-19 08:40:00 64 [in_i] Commo n [facility] weight 2023-01-19 08:40:00 162.9 [lb_av] Co mmon [facility] temperature 2023-01-19 08:40:00 97.3 [degF] Com [facility] bmi 2023-01-19 08:40:00 27.96 kg/m2 Comm on [facility] oximetry 2023-01-19 08:40:00 99 % Commo n [facility] respiratory rate 2023-01-19 08:40:00 18 /min [facility] blood pressure systolic 2023-01-19 08:40:00 119 mm[Hg] Common [facility] blood pressure diastolic 2023-01-19 08:40:00 71 mm[Hg] Common [facility] height 2022-10-20 10:00:00 64 [in_i] Commo n [facility] weight 2022-10-20 10:00:00 165.3 [lb_av] Co mmon [facility] temperature 2022-10-20 10:00:00 97.3 [degF] Com mon [facility] bmi 2022-10-20 10:00:00 28.37 kg/m2 Comm on [facility] oximetry 2022-10-20 10:00:00 99 % Commo n [facility] respiratory rate 2022-10-20 10:00:00 18 /min [facility] blood pressure systolic 2022-10-20 10:00:00 138 mm[Hg] Common [facility] blood pressure diastolic 2022-10-20 10:00:00 77 mm[Hg] Common [facility] height 2022-07-21 09:00:00 64 [in_i] Commo n [facility] weight 2022-07-21 09:00:00 158.7 [lb_av] Co mmon [facility] temperature 2022-07-21 09:00:00 97.4 [degF] Com mon [facility] bmi 2022-07-21 09:00:00 27.24 kg/m2 Comm on [facility] oximetry 2022-07-21 09:00:00 96 % Commo n [facility] respiratory rate 2022-07-21 09:00:00 16 /min [facility] blood pressure systolic 2022-07-21 09:00:00 142 mm[Hg] [facility] blood pressure diastolic 2022-07-21 09:00:00 76 mm[Hg] Common [facility] height 2022-06-22 09:00:00 64 [in_i] Commo n [facility] weight 2022-06-22 09:00:00 154 [lb_av] Comm on [facility] 2022-06-22 09:00:00 26.43 kg/m2 Comm on [facility] height 2022-04-14 09:00:00 64 [in_i] Commo n [facility] weight 2022-04-14 09:00:00 159.9 [lb_av] Co mmon [facility] temperature 2022-04-14 09:00:00 97.1 [degF] Com [facility] bmi 2022-04-14 09:00:00 27.44 kg/m2 Comm on [facility] oximetry 2022-04-14 09:00:00 99 % Commo n [facility] respiratory rate 2022-04-14 09:00:00 18 /min [facility] blood pressure systolic 2022-04-14 09:00:00 138 mm[Hg] [facility] blood pressure diastolic 2022-04-14 09:00:00 78 mm[Hg] [facility] height 2022-04-14 09:00:00 64 [in_i] Commo n [facility] weight 2022-04-14 09:00:00 159.9 [lb_av] Co mmon [facility] temperature 2022-04-14 09:00:00 97.1 [degF] Com mon [facility] bmi 2022-04-14 09:00:00 27.44 kg/m2 Comm on [facility] oximetry 2022-04-14 09:00:00 99 % Commo n [facility] respiratory rate 2022-04-14 09:00:00 18 /min [facility] blood pressure systolic 2022-04-14 09:00:00 138 mm[Hg] [facility] blood pressure diastolic 2022-04-14 09:00:00 78 mm[Hg] Common [facility] height 2022-01-19 15:00:00 64 [in_i] Commo n [facility] weight 2022-01-19 15:00:00 172.9 [lb_av] Co mmon [facility] temperature 2022-01-19 15:00:00 97.7 [degF] Com mon [facility] bmi 2022-01-19 15:00:00 29.67 kg/m2 Comm on [facility] oximetry 2022-01-19 15:00:00 97 % Commo n [facility] respiratory rate 2022-01-19 15:00:00 17 /min [facility] blood pressure systolic 2022-01-19 15:00:00 135 mm[Hg] [facility] blood pressure diastolic 2022-01-19 15:00:00 76 mm[Hg] [facility] height 2021-10-21 14:50:00 64 [in_i] Commo n [facility] weight 2021-10-21 14:50:00 176.5 [lb_av] Co mmon [facility] temperature 2021-10-21 14:50:00 97.6 [degF] Com mon [facility] bmi 2021-10-21 14:50:00 30.29 kg/m2 Comm on [facility] oximetry 2021-10-21 14:50:00 96 % Commo n [facility] respiratory rate 2021-10-21 14:50:00 16 /min [facility] blood pressure systolic 2021-10-21 14:50:00 133 mm[Hg] [facility] blood pressure diastolic 2021-10-21 14:50:00 75 mm[Hg] [facility] Encounters Start Date/Time End Date/Time Encounter Type Admission Type Attending Clinicians Care Facility Care Department Encounter ID Source 2024-05-21 16:12:00 Outpatient Lomeli, [facility] [id number] [facility] 2024-02-14 11:22:00 Outpatient Lomeli, [facility] [id number] [facility] 2022-10-19 08:24:01 Outpatient Lomeli, [facility] [id number] [facility] 2022-07-21 08:43:03 [facility] [id number] [facility] 2021-12-15 14:06:04 [facility] [id number] [facility] 2021-12-15 13:49:14 Outpatient Lomeli, [facility] [id number] [facility] 2021-12-15 12:59:06 Outpatient Lomeli, Rj [facility] STL[facility] [id number] [facility] 2021-12-15 12:54:46 Outpatient Lomeli, Rj [facility] STL[facility] [id number] [facility] 2021-12-15 12:51:08 Outpatient Lomeli, Rj [facility] STL[facility] [id number] [facility] 2021-12-15 12:49:56 Outpatient Lomeli, Rj [facility] [id number] [facility] 2021-12-15 12:49:17 Outpatient Lomeli, Rj [facility] STL[facility] [id number] [facility] 2021-12-15 12:30:57 Outpatient Lomeli, Rj [facility] STL[facility] [id number] [facility] 2021-12-15 12:30:25 Outpatient [facility] STL[facility] [id number] [facility] 2024-07-29 00:00:00 2024-07-29 00:00:00 (TEL) STLMLC STL[facility]C [id number] [facility] 2024-07-29 00:00:00 2024-07-29 00:00:00 (TEL) STLMLC STL[facility]C [id number] [facility] 2024-05-30 00:00:00 2024-05-30 00:00:00 OFFICE VISIT ESTAB PT LEVEL 4 [facility]C STL[facility]C [id number] [facility] 2024-05-30 00:00:00 2024-05-30 00:00:00 SUB [facility] VISIT STL[facility] STL[facility]C [id number] [facility] 2024-03-05 00:00:00 2024-03-05 00:00:00 (TEL) STLMLC STLMLC [id number] [facility] 2024-02-27 00:00:00 2024-02-27 00:00:00 (TEL) STLMLC STLMLC [id number] [facility] 2024-02-15 00:00:00 2024-02-15 00:00:00 OFFICE VISIT ESTAB PT LEVEL 4 [facility]C STL[facility]C [id number] [facility] 2024-01-29 00:00:00 2024-01-29 00:00:00 (TEL) STLMLC STLMLC [id number] [facility] 2024-01-08 00:00:00 2024-01-08 00:00:00 (TEL) STLMLC STLMLC [id number] [facility] 2024-01-02 00:00:00 2024-01-02 00:00:00 (TEL) STLMLC STLMLC [id number] [facility] 2023-12-19 00:00:00 2023-12-19 00:00:00 (TEL) STLMLC STLMLC [id number] [facility] 2023-12-14 00:00:00 2023-12-14 00:00:00 (TEL) STLMLC STLMLC [id number] [facility] 2023-11-16 00:00:00 2023-11-16 00:00:00 (TEL) STLMLC STLMLC [id number] [facility] 2023-11-16 00:00:00 2023-11-16 00:00:00 OFFICE VISIT ESTAB PT LEVEL 4 [facility]LMLC STL[facility]C [id number] [facility] 2023-11-15 00:00:00 2023-11-15 00:00:00 (TEL) STLMLC STL[facility]C [id number] [facility] 2023-09-26 00:00:00 2023-09-26 00:00:00 (TEL) STLMLC STLMLC [id number] [facility] 2023-08-28 00:00:00 2023-08-28 00:00:00 (TEL) STLMLC STLMLC [id number] [facility] 2023-08-17 00:00:00 2023-08-17 00:00:00 (TEL) STLMLC STL[facility]C [id number] [facility] 2023-08-10 00:00:00 2023-08-10 00:00:00 OFFICE VISIT ESTAB PT LEVEL 4 [facility]C STL[facility]C [id number] [facility] 2023-06-12 00:00:00 2023-06-12 00:00:00 (TEL) STLMLC STLMLC [id number] [facility] 2023-05-04 00:00:00 2023-05-04 00:00:00 OFFICE VISIT ESTAB PT LEVEL 4 [facility]C STL[facility]C [id number] [facility] 2023-05-04 00:00:00 2023-05-04 00:00:00 [facility] VISIT STL[facility] STL[facility]C [id number] [facility] 2023-03-17 00:00:00 2023-03-17 00:00:00 (TEL) STLMLC STLMLC [id number] [facility] 2023-01-31 00:00:00 2023-01-31 00:00:00 (TEL) STLMLC STLMLC [id number] [facility] 2023-01-19 00:00:00 2023-01-19 00:00:00 OFFICE VISIT ESTAB PT LEVEL 4 [facility]C STL[facility]C [id number] [facility] 2022-11-15 00:00:00 2022-11-15 00:00:00 (TEL) STLMLC STLMLC [id number] [facility] 2022-11-10 00:00:00 2022-11-10 00:00:00 (TEL) STLMLC STLMLC [id number] [facility] 2022-10-20 00:00:00 2022-10-20 00:00:00 OFFICE VISIT ESTAB PT LEVEL 4 [facility] STL[facility]C [id number] [facility] 2022-09-12 00:00:00 2022-09-12 00:00:00 (TEL) STLMLC STLMLC [id number] [facility] 2022-08-08 00:00:00 2022-08-08 00:00:00 (TEL) STLMLC STLMLC [id number] [facility] 2022-07-21 00:00:00 2022-07-21 00:00:00 OFFICE VISIT ESTAB PT LEVEL 4 [facility]C STL[facility]C [id number] [facility] 2022-07-18 00:00:00 2022-07-18 00:00:00 (TEL) STLMLC STLMLC [id number] [facility] 2022-06-22 00:00:00 2022-06-22 00:00:00 OFFICE VISIT EST PT LEVEL 3 [facility]C STL[facility]C [id number] [facility] 2022-06-20 00:00:00 2022-06-20 00:00:00 (TEL) STLMLC STLMLC [id number] [facility] 2022-04-14 00:00:00 2022-04-14 00:00:00 OFFICE VISIT ESTAB PT LEVEL 4 [facility]C STL[facility]C [id number] [facility] 2022-04-14 00:00:00 2022-04-14 00:00:00 [facility] VISIT ST[facility] STL[facility]C [id number] [facility] 2022-04-05 00:00:00 2022-04-05 00:00:00 (TEL) STLMLC STLMLC [id number] [facility] 2022-03-24 00:00:00 2022-03-24 00:00:00 (TEL) STLMLC STLMLC [id number] [facility] 2022-01-19 00:00:00 2022-01-19 00:00:00 OFFICE VISIT ESTAB PT LEVEL 4 [facility]C STL[facility]C [id number] [facility] 2021-12-30 00:00:00 2021-12-30 00:00:00 (TEL) STLMLC STLMLC [id number] [facility] 2021-12-29 00:00:00 2021-12-29 00:00:00 (TEL) STLMLC STLMLC [id number] [facility] 2021-11-09 00:00:00 2021-11-09 00:00:00 (TEL) STLMLC STLMLC [id number] [facility] 2021-10-21 00:00:00 2021-10-21 00:00:00 OFFICE VISIT ESTAB PT LEVEL 4 [facility]C STL[facility]C [id number] [facility] 2021-08-02 00:00:00 2021-08-02 00:00:00 (TEL) STLMLC STLMLC [id number] [facility] 2021-06-17 00:00:00 2021-06-17 00:00:00 Outpatient STLMLC STL[facility]C [id number] [facility] 2021-06-17 00:00:00 2021-06-17 00:00:00 Outpatient STLMLC STLMLC [id number] [facility] 2021-04-29 00:00:00 2021-04-29 00:00:00 Outpatient STLMLC STL[facility]C [id number] [facility] 2021-03-19 00:00:00 2021-03-19 00:00:00 Outpatient STLMLC STL[facility]C [id number] [facility] 2021-03-18 00:00:00 2021-03-18 00:00:00 Outpatient STLMLC STL[facility]C [id number] [facility] 2021-03-03 00:00:00 2021-03-03 00:00:00 Outpatient STLMLC STL[facility]C [id number] [facility] 2021-03-02 00:00:00 2021-03-02 00:00:00 Outpatient STLMLC STL[facility]C [id number] [facility] 2021-02-25 00:00:00 2021-02-25 00:00:00 Outpatient STLMLC STL[facility]C [id number] [facility] 2021-02-25 00:00:00 2021-02-25 00:00:00 Outpatient STLMLC STL[facility]C [id number] [facility] 2021-02-19 00:00:00 2021-02-19 00:00:00 Outpatient STLMLC STL[facility]C [id number] [facility] 2021-01-09 00:00:00 2021-01-09 00:00:00 Outpatient STLMLC STLMLC [id number] [facility] 2020-12-31 00:00:00 2020-12-31 00:00:00 Outpatient [facility] ST[facility] [id number] [facility] Results Test Description Test Time Test Comments Results Result Co mments Source CBC W/AUTO [id number] 00:00:00* Test Item Value Reference Range Interpretation Comme nts NUCLEATED RBCS (test code = 02121-8) 0.0 /100 WBC'S See_Comment [Automated messa ge] The system which generated this result transmitted reference range: 0.0 /100 WBC'S. The reference range was not used to interpret this result as normal/abnormal. ABSOLUTE EOSINOPHILS (test code = 82264-4) 0.08 K/UL See_Comment [Automated messa ge] The system which generated this result transmitted reference range: 0.00-0.50 K/UL. The reference range was not used to interpret this result as normal/abnormal. ABSOLUTE LYMPHOCYTES (test code = 47672-8) 1.29 K/UL See_Comment [Automated messa ge] The system which generated this result transmitted reference range: 1.00-4.00 K/UL. The reference range was not used to interpret this result as normal/abnormal. ABSOLUTE MONOCYTES (test code = 27900-7) 0.50 K/UL See_Comment [Automated messa ge] The system which generated this result transmitted reference range: 0.20-1.00 K/UL. The reference range was not used to interpret this result as normal/abnormal. ABSOLUTE NEUTROPHILS (test code = 48544-9) 4.00 K/UL See_Comment [Automated messa ge] The system which generated this result transmitted reference range: 1.50-7.50 K/UL. The reference range was not used to interpret this result as normal/abnormal. BASOPHILS (test code = 16775-0) 0.3 % EOSINOPHILS (test code = 73633-6) 1.4 % HEMATOCRIT (test code = 77520-3) 39.6 % See_Comment [Automated messa ge] The system which generated this result transmitted reference range: 34.0-45.0 %. The reference range was not used to interpret this result as normal/abnormal. HEMOGLOBIN (test code = 718-7) 13.4 G/DL See_Comment [Automated messa ge] The system which generated this result transmitted reference range: 11.5-15.5 G/DL. The reference range was not used to interpret this result as normal/abnormal. LYMPHOCYTES (test code = 23371-0) 21.8 % MCH (test code = 16160-9) 30.4 PG See_Comment [Automated messa ge] The system which generated this result transmitted reference range: 25.0-33.0 PG. The reference range was not used to interpret this result as normal/abnormal. MCHC (test code = 43753-8) 33.8 G/DL See_Comment [Automated messa ge] The system which generated this result transmitted reference range: 31.0-36.0 G/DL. The reference range was not used to interpret this result as normal/abnormal. MCV (test code = 31019-4) 89.8 fL See_Comment [Automated messa ge] The system which generated this result transmitted reference range: 80.0-99.0 fL. The reference range was not used to interpret this result as normal/abnormal. MONOCYTES (test code = 12985-3) 8.4 % NEUTROPHILS (test code = 48669-9) 67.6 % PLATELET COUNT (test code = 13519-5) 231 K/UL See_Comment [Automated messa ge] The system which generated this result transmitted reference range: 130-400 K/UL. The reference range was not used to interpret this result as normal/abnormal. RBC (test code = 93573-9) 4.41 M/UL See_Comment [Automated messa ge] The system which generated this result transmitted reference range: 3.80-5.40 M/UL. The reference range was not used to interpret this result as normal/abnormal. RDW (test code = 36543-4) 12.5 % See_Comment [Automated messa ge] The system which generated this result transmitted reference range: 11.5-15.0 %. The reference range was not used to interpret this result as normal/abnormal. WBC (test code = 17412-4) 5.9 K/UL See_Comment [Automated messa ge] The system which generated this result transmitted reference range: 3.5-11.0 K/UL. The reference range was not used to interpret this result as normal/abnormal. CBC W/AUTO [id number] 00:00:00* Test Item Value Reference Range Interpretation Comme nts NUCLEATED RBCS (test code = 59784-9) 0.0 /100 WBC'S See_Comment [Automated messa ge] The system which generated this result transmitted reference range: 0.0 /100 WBC'S. The reference range was not used to interpret this result as normal/abnormal. ABSOLUTE EOSINOPHILS (test code = 61169-5) 0.08 K/UL See_Comment [Automated messa ge] The system which generated this result transmitted reference range: 0.00-0.50 K/UL. The reference range was not used to interpret this result as normal/abnormal. ABSOLUTE LYMPHOCYTES (test code = 56985-4) 1.25 K/UL See_Comment [Automated messa ge] The system which generated this result transmitted reference range: 1.00-4.00 K/UL. The reference range was not used to interpret this result as normal/abnormal. ABSOLUTE MONOCYTES (test code = 63978-6) 0.50 K/UL See_Comment [Automated messa ge] The system which generated this result transmitted reference range: 0.20-1.00 K/UL. The reference range was not used to interpret this result as normal/abnormal. ABSOLUTE NEUTROPHILS (test code = 99160-0) 3.53 K/UL See_Comment [Automated messa ge] The system which generated this result transmitted reference range: 1.50-7.50 K/UL. The reference range was not used to interpret this result as normal/abnormal. BASOPHILS (test code = 07338-9) 0.5 % EOSINOPHILS (test code = 60777-1) 1.5 % HEMATOCRIT (test code = 52454-0) 36.3 % See_Comment [Automated messa ge] The system which generated this result transmitted reference range: 34.0-45.0 %. The reference range was not used to interpret this result as normal/abnormal. HEMOGLOBIN (test code = 718-7) 12.3 G/DL See_Comment [Automated messa ge] The system which generated this result transmitted reference range: 11.5-15.5 G/DL. The reference range was not used to interpret this result as normal/abnormal. LYMPHOCYTES (test code = 14467-6) 22.9 % MCH (test code = 66165-7) 30.7 PG See_Comment [Automated messa ge] The system which generated this result transmitted reference range: 25.0-33.0 PG. The reference range was not used to interpret this result as normal/abnormal. MCHC (test code = 93549-4) 33.9 G/DL See_Comment [Automated messa ge] The system which generated this result transmitted reference range: 31.0-36.0 G/DL. The reference range was not used to interpret this result as normal/abnormal. MCV (test code = 34879-7) 90.5 fL See_Comment [Automated messa ge] The system which generated this result transmitted reference range: 80.0-99.0 fL. The reference range was not used to interpret this result as normal/abnormal. MONOCYTES (test code = 70866-1) 9.2 % NEUTROPHILS (test code = 86069-9) 64.6 % PLATELET COUNT (test code = 24200-5) 238 K/UL See_Comment [Automated messa ge] The system which generated this result transmitted reference range: 130-400 K/UL. The reference range was not used to interpret this result as normal/abnormal. RBC (test code = 95432-3) 4.01 M/UL See_Comment [Automated messa ge] The system which generated this result transmitted reference range: 3.80-5.40 M/UL. The reference range was not used to interpret this result as normal/abnormal. RDW (test code = 96406-4) 12.1 % See_Comment [Automated messa ge] The system which generated this result transmitted reference range: 11.5-15.0 %. The reference range was not used to interpret this result as normal/abnormal. WBC (test code = 17901-8) 5.5 K/UL See_Comment [Automated messa ge] The system which generated this result transmitted reference range: 3.5-11.0 K/UL. The reference range was not used to interpret this result as normal/abnormal. CBC W/AUTO [id number] 00:00:00* Test Item Value Reference Range Interpretation Comme nts NUCLEATED RBCS (test code = 01859-4) 0.0 /100 WBC'S See_Comment [Automated messa ge] The system which generated this result transmitted reference range: 0.0 /100 WBC'S. The reference range was not used to interpret this result as normal/abnormal. ABSOLUTE EOSINOPHILS (test code = 64089-2) 0.08 K/UL See_Comment [Automated messa ge] The system which generated this result transmitted reference range: 0.00-0.50 K/UL. The reference range was not used to interpret this result as normal/abnormal. ABSOLUTE LYMPHOCYTES (test code = 26774-7) 1.51 K/UL See_Comment [Automated messa ge] The system which generated this result transmitted reference range: 1.00-4.00 K/UL. The reference range was not used to interpret this result as normal/abnormal. ABSOLUTE MONOCYTES (test code = 09667-0) 0.56 K/UL See_Comment [Automated messa ge] The system which generated this result transmitted reference range: 0.20-1.00 K/UL. The reference range was not used to interpret this result as normal/abnormal. ABSOLUTE NEUTROPHILS (test code = 58367-7) 3.98 K/UL See_Comment [Automated messa ge] The system which generated this result transmitted reference range: 1.50-7.50 K/UL. The reference range was not used to interpret this result as normal/abnormal. BASOPHILS (test code = 35320-7) 0.5 % EOSINOPHILS (test code = 17784-9) 1.3 % HEMATOCRIT (test code = 57385-0) 38.6 % See_Comment [Automated messa ge] The [...] result as normal/abnormal. LYMPHOCYTES (test code = 19112-1) 24.4 % MCH (test code = 43247-1) 30.0 PG See_Comment [Automated messa ge] The system which generated this result transmitted reference range: 25.0-33.0 PG. The reference range was not used to interpret this result as normal/abnormal. MCHC (test code = 41635-8) 33.9 G/DL See_Comment [Automated messa ge] The system which generated this result transmitted reference range: 31.0-36.0 G/DL. The reference range was not used to interpret this result as normal/abnormal. MCV (test code = 71603-8) 88.5 fL See_Comment [Automated messa ge] The system which generated this result transmitted reference range: 80.0-99.0 fL. The reference range was not used to interpret this result as normal/abnormal. MONOCYTES (test code = 71245-7) 9.1 % NEUTROPHILS (test code = 38499-5) 64.4 % PLATELET COUNT (test code = 56227-3) 225 K/UL See_Comment [Automated messa ge] The system which generated this result transmitted reference range: 130-400 K/UL. The reference range was not used to interpret this result as normal/abnormal. RBC (test code = 06596-4) 4.36 M/UL See_Comment [Automated messa ge] The system which generated this result transmitted reference range: 3.80-5.40 M/UL. The reference range was not used to interpret this result as normal/abnormal. RDW (test code = 27639-0) 12.4 % See_Comment [Automated messa ge] The system which generated this result transmitted reference range: 11.5-15.0 %. The reference range was not used to interpret this result as normal/abnormal. WBC (test code = 48456-5) 6.2 K/UL See_Comment [Automated messa ge] The system which generated this result transmitted reference range: 3.5-11.0 K/UL. The reference range was not used to interpret this result as normal/abnormal. CBC W/AUTO [id number] 00:00:00* Test Item Value Reference Range Interpretation Comme nts NUCLEATED RBCS (test code = 20825-4) 0.0 /100 WBC'S See_Comment [Automated messa ge] The system which generated this result transmitted reference range: 0.0 /100 WBC'S. The reference range was not used to interpret this result as normal/abnormal. ABSOLUTE EOSINOPHILS (test code = 32837-4) 0.10 K/UL See_Comment [Automated messa ge] The system which generated this result transmitted reference range: 0.00-0.50 K/UL. The reference range was not used to interpret this result as normal/abnormal. ABSOLUTE LYMPHOCYTES (test code = 80514-8) 1.88 K/UL See_Comment [Automated messa ge] The system which generated this result transmitted reference range: 1.00-4.00 K/UL. The reference range was not used to interpret this result as normal/abnormal. ABSOLUTE MONOCYTES (test code = 75183-7) 0.61 K/UL See_Comment [Automated messa ge] The system which generated this result transmitted reference range: 0.20-1.00 K/UL. The reference range was not used to interpret this result as normal/abnormal. ABSOLUTE NEUTROPHILS (test code = 47435-1) 4.00 K/UL See_Comment [Automated messa ge] The system which generated this result transmitted reference range: 1.50-7.50 K/UL. The reference range was not used to interpret this result as normal/abnormal. BASOPHILS (test code = 44506-5) 0.6 % EOSINOPHILS (test code = 69359-6) 1.5 % HEMATOCRIT (test code = 30268-2) 38.2 % See_Comment [Automated messa ge] The [...] result as normal/abnormal. LYMPHOCYTES (test code = 30431-2) 28.3 % MCH (test code = 37047-2) 31.2 PG See_Comment [Automated messa ge] The system which generated this result transmitted reference range: 25.0-33.0 PG. The reference range was not used to interpret this result as normal/abnormal. MCHC (test code = 05905-7) 34.3 G/DL See_Comment [Automated messa ge] The system which generated this result transmitted reference range: 31.0-36.0 G/DL. The reference range was not used to interpret this result as normal/abnormal. MCV (test code = 15306-1) 91.0 fL See_Comment [Automated messa ge] The system which generated this result transmitted reference range: 80.0-99.0 fL. The reference range was not used to interpret this result as normal/abnormal. MONOCYTES (test code = 84679-3) 9.2 % NEUTROPHILS (test code = 36422-6) 60.1 % PLATELET COUNT (test code = 34844-1) 246 K/UL See_Comment [Automated messa ge] The system which generated this result transmitted reference range: 130-400 K/UL. The reference range was not used to interpret this result as normal/abnormal. RBC (test code = 09500-9) 4.20 M/UL See_Comment [Automated messa ge] The system which generated this result transmitted reference range: 3.80-5.40 M/UL. The reference range was not used to interpret this result as normal/abnormal. RDW (test code = 99054-3) 12.3 % See_Comment [Automated messa ge] The system which generated this result transmitted reference range: 11.5-15.0 %. The reference range was not used to interpret this result as normal/abnormal. WBC (test code = 02655-5) 6.7 K/UL See_Comment [Automated messa ge] The system which generated this result transmitted reference range: 3.5-11.0 K/UL. The reference range was not used to interpret this result as normal/abnormal.
[2024-08-20 17:19] LABS: Absolute Basophils 0.1 K/uL (0-0.5); Absolute Monocytes 0.6 K/uL (0.1-1.3); Absolute Neutrophil 5.7 K/uL (1.8-8.0); Basophils % 0.8 % (0-1.3); Eosinophils % 0.5 % (0-4.4); Hematocrit 35.5 % (36.0-45.0); Hemoglobin 12.5 g/dL (12.0-15.0); Lymphocytes % 23.1 % (15.3-44.8); MCH 30.8 pg (27.0-35.0); MCHC 35.1 g/dL (32.0-36.0); MCV 87.7 fL (80-100); MPV 8.3 fL (7.6-11.3); Monocytes % 7.7 % (3.3-12.3); Neutrophils % 67.9 % (41.7-73.7); Platelets 226 thou/uL (152-406); RBC Red Blood Cell Count 4.05 M/uL (3.86-4.86); Red Cell Distribution Width 12.4 % (12.1-15.2)
[2024-08-20] MEDS ORDERED: NA CHLORIDE 0.9% 500 ML ONE (17:25)
[2024-08-20 17:36] LABS: PT Prothrombin Time 12.4 SECONDS (9.4-12.5); Protime INR 1.11
[2024-08-20 17:44] LABS: SARS-CoV-2 Antigen CONTROL BLUE LINE VIS/BG OK; SARS-CoV-2 Antigen Rapid Res Negative (Negative)
[2024-08-20 17:53] LABS: Sqamous Epithelial <5 /HPF (None Seen); Urine Bacteria 20-50 /HPF (<20); Urine Bilirubin NEGATIVE (Negative); Urine Blood Negative (Negative); Urine Clarity Extremely Turbid (Clear); Urine Color Light-Yellow (Yellow); Urine Crystals Unidentified Few /HPF (None Seen); Urine Culture Reflex Order REFLEXED; Urine Glucose 4+ (Over) (Negative); Urine Ketones NEGATIVE (Negative); Urine Microscopic Reflex YN ORDER UMIC; Urine Mucus Slight /HPF (None Seen); Urine Nitrite 2+ (Negative); Urine Protein NEGATIVE (Negative); Urine Urobilinogen Normal (Normal); Urine WBC >50 /HPF (<5); Urine WBC Clump Rare /HPF (None Seen)
[2024-08-20 18:01] LABS: ALT/SGPT 19 U/L (13-56); Alkaline Phosphatase 95 U/L (45-117); Anion Gap 5.9 mEq/L (5.0-15.0); BUN Blood Urea Nitrogen 18 mg/dL (7-18); Bicarbonate 28 mEq/L (21-32); Bilirubin Total 0.6 mg/dL (0.2-1.0); Glomerular Filtration Rate 77 ml/min (=/>90); Glucose Level 172 mg/dL (74-106); Magnesium 1.7 mg/dL (1.6-2.4); NT PRO-BNP 614 pg/mL (<450); Potassium 3.9 mEq/L (3.5-5.1); Protein, Total 6.7 g/dL (6.4-8.2); Sodium Level 136 mEq/L (136-145)
[2024-08-20 18:02] LABS: AST/SGOT < 10 U/L (15-37); Albumin < 0.9 g/dL (3.4-5.0); Albumin/Globulin Ratio ND (1.1-1.8); Bilirubin Direct < 0.2 mg/dL (0-0.2); Bilirubin Indirect, Calculated 0.4 mg/dL (0.2-0.8); Globulin 5.8 g/dL (2.3-3.5)
--- NOTE | 2024-08-20 18:04 | ER ---
Nurse's Notes [facility] Name: Stephanie Thao Age: 79 yrs Sex: Female : 1945 Arrival Date: 08/20/2024 Time: 16:27 Bed 17 Private MD: Diagnosis: Dementia in other diseases classified elsewhere without behavioral disturbance;Altered mental status, unspecified;Essential (primary) hypertension;UTI/ Urinary tract infection, site not specified;Abnormal levels of other serum enzymes-elevated troponin Presentation: 08/20 17:00 Chief complaint: EMS states: Arrived with patient stating they were called out for qf patient with AMS, upon arrival patient appeared confused, upon arrival to ER patient AAOx4, answers questions appropriately, appears to have some memory loss, patient denies pain or SOB, Patient was given NS 300ml and 20G IV in route to ER, no family present, patient was picked up from an [facility] Facility, EMS could not recall name. Coronavirus screen: Client denies travel out of the [place] in the last 14 days. At this time, the client does not indicate any symptoms associated with coronavirus-19. Ebola Screen: No symptoms or risks identified at this time. Initial Sepsis Screen: Does the patient meet any 2 criteria? No. Patient's initial sepsis screen is negative. Does the patient have a suspected source of infection? No. Patient's initial sepsis screen is negative. Risk Assessment: Do you want to hurt yourself or someone else? Patient reports no desire to harm self or others. Onset of symptoms is unknown. Care prior to arrival: Medication(s) given: Normal saline infusion, 300ml IV initiated. 20 GA, in the left antecubital area. 17:00 Method Of Arrival: EMS: [facility] qf 17:00 Acuity: MADY 3 qf Triage Assessment: 16:58 General: Appears in no apparent distress. comfortable, Behavior is calm, cooperative. qf Pain: Denies pain. Neuro: No deficits noted. 17:22 Cardiovascular: No deficits noted. Respiratory: No deficits noted. qf Historical: - Allergies: 17:08 Macrobid; qf - PMHx: 17:08 Hypertensive disorder; diabetes mellitus; Myocardial infarction; bowel obstruction; qf - PSHx: 17:08 Heart Stents; hysterectomy; Cholecystectomy; qf - Immunization history:: Unknown. - Infectious Disease History:: Denies. - Social history:: Smoking status: Patient denies any tobacco usage or history of. Patient/guardian denies using. Screenin:11 [facility] ED Fall Risk Assessment (Adult) History of falling in the last 3 months, qf including since admission No falls in past 3 months (0 pts) Confusion or Disorientation Yes (5 pts) Intoxicated or Sedated No (0 pts) Impaired Gait No (0 pts) Mobility Assist Device Used No (0 pt) Altered Elimination No (0 pt) Score/Fall Risk Level 3 or more points = High Risk Oriented to surroundings, Maintained a safe environment, Educated pt \T\ family on fall prevention, incl call for assistance when getting out of bed, Hourly rounding (assess needs \T\ fall precautionary measures) done. Abuse screen: Denies threats or abuse. Nutritional screening: No deficits noted. Tuberculosis screening: No symptoms or risk factors identified. Assessment: 17:23 General: Appears in no apparent distress. comfortable, Behavior is calm, cooperative. qf Pain: Denies pain. Neuro: No deficits noted. Cardiovascular: No deficits noted. 17:23 Reassessment: Spoke to son Fabricio \T\ [phone], states mom has a hx. of memory loss, qf reports being on the way to [place] from [place] to check on her, patient updated, patient came from [facility]. Respiratory: No deficits noted. Vital Signs: 16:59 BP 213 / 82; Pulse 79; Resp 16; Temp 98.3; Pulse Ox 98% on R/A; Weight 79.38 kg; Height qf 5 ft. 6 in. ; Pain 0/10; 18:51 BP 185 / 70; Pulse 74; Resp 16; Pulse Ox 99% on R/A; mb9 19:30 BP 181 / 100; Pulse 79; Resp 18; Temp 98(O); Pulse Ox 99% ; Pain 0/10; rg5 20:00 BP 177 / 100; Pulse 79; Resp 17; Pulse Ox 98% on R/A; rg5 21:00 BP 173 / 65; Pulse 65; Resp 17; Pulse Ox 96% on R/A; rg5 16:59 Body Mass Index 28.25 (79.38 kg, 167.64 cm) qf 16:59 Pain Scale: Adult qf 19:30 Pain Scale: Adult rg5 [place] Coma Score: 18:00 Eye Response: spontaneous(4). Motor Response: obeys commands(6). Verbal Response: umair oriented(5). Total: 15. NIH Stroke Scale Scores: 17:11 NIHSS Score: 0 qf 18:13 NIHSS Score: 0 umair ED Course: 16:45 Patient arrived in ED. iw 16:58 Carlos Enrique Ramirez RN is Primary Nurse. qf 17:01 Josh Joshi MD is Attending Physician. umair 17:08 Triage completed. qf 17:11 Arm band placed on right wrist. qf 17:16 Patient has correct armband on for positive identification. Bed in low position. Side qf rails up X2. Client placed on continuous cardiac and pulse oximetry monitoring. NIBP monitoring applied. laboratory monitor on. Pulse ox on. NIBP on. 17:19 SARS RAPID Sent. mb9 17:19 Flu Sent. mb9 17:19 Basic Metabolic Panel Sent. mb9 17:19 CBC with Diff Sent. mb9 17:19 Magnesium Sent. mb9 17:19 NT PRO-BNP Sent. mb9 17:19 PT-INR Sent. mb9 17:19 Troponin HS Sent. mb9 17:19 LFT's Sent. mb9 17:26 Maintain EMS IV. Dressing intact. Good blood return noted. Site clean \T\ dry. Gauge \T\ qf site: 20g Left AC. Flushed with 10 mL NS. 17:46 EKG done, by ED staff. qf 18:03 Scott Marrero MD is Hospitalizing Provider. umair 18:12 CT Head Brain wo Cont In Process Unspecified. EDMS 18:17 XRAY Chest (1 view) In Process Unspecified. EDMS 18:23 Urine Culture Sent. mb9 18:31 Notified ED physician of a critical lab result(s). troponin 100.2. kc6 18:50 No provider procedures requiring assistance completed. mb9 18:51 Patient admitted, IV remains in place. mb9 19:07 Report given to Eladio GUPTA. qf 20:30 Provided Education on: need for admit. rg5 08/21 06:12 Comprehensive Metabolic Panel Sent. rg5 06:12 CBC with Automated Diff Sent. rg5 06:12 Urinalysis w/ reflexes Sent. rg5 Administered Medications: 08/20 17:15 Drug: NS 0.9% IV 500 ml IV at bolus once Route: IV; Rate: bolus; Site: left antecubital;qf 18:41 Follow up: Response: No adverse reaction; IV Status: Completed infusion qf 18:37 Drug: Rocephin IV 1 grams IV at per protocol once; Given slow IV push per pharmacy qf instructions Route: IV; Rate: per protocol; Site: left antecubital; 22:43 Follow up: Response: No adverse reaction; IV Status: Completed infusion rg5 18:38 Drug: NS 0.9% IV 1000 ml IV at 125 ml/hr continuous Route: IV; Rate: 125 ml/hr; Site: qf left antecubital; 08/21 06:11 Follow up: IV Status: Completed infusion; IV Intake: 600ml rg5 Medication: 08/20 17:58 VIS not applicable for this client. qf Intake: 08/21 06:11 IV: 600ml; Total: 600ml. rg5 Outcome: 08/20 18:04 Decision to Hospitalize by Provider. umair 20:30 [facility]mitted to ER [facility]. [facility] rg5 20:30 Condition: stable rg5 20:30 Instructed on the need for admit, 08/21 13:02 Patient left the ED. ll1 NIH Stroke Scale - NIH Stroke Score Date: 08/20/2024 Time: 17:11 Total Score = 0 10. Dysarthria (speech clarity - read or repeat words) - 0(Normal) 11. Extinction and Inattention (visual/tactile/auditory/spatial/personal) - 0(No abnormality) 1a. Level of Consciousness (LOC) - 0(Alert) 1b. Level of Consciousness (LOC) (Month \T\ Age) - 0(Both) 1c. LOC Commands (Open \T\ Closes Eyes/Operative Supervisor) - 0(Both) 2. Best Gaze (Lateral Gaze Paresis) - 0(Normal) 3. Visual Field Loss - 0(No visual loss) 4. Facial Palsy - 0(Normal) 5a. Left Arm: Motor (10-second hold) - 0(No drift) 5b. Right Arm: Motor (10-second hold) - 0(No drift) 6a. Left Leg: Motor (5-second hold - always test supine) - 0(No drift) 6b. Right Leg: Motor (5-second hold - always test supine) - 0(No drift) 7. Limb Ataxia (finger/nose \T\ heel/separza - test with eyes open) - 0(Absent) 8. Sensory Loss (pinprick arms/legs/face) - 0(Normal) 9. Best Language: Aphasia (description/naming/reading) - 0(No aphasia) Initials: qf NIH Stroke Scale - NIH Stroke Score Date: 08/20/2024 Time: 18:13 Total Score = 0 10. Dysarthria (speech clarity - read or repeat words) - 0(Normal) 11. Extinction and Inattention (visual/tactile/auditory/spatial/personal) - 0(No abnormality) 1a. Level of Consciousness (LOC) - 0(Alert) 1b. Level of Consciousness (LOC) (Month \T\ Age) - 0(Both) 1c. LOC Commands (Open \T\ Closes Eyes/Operative Supervisor) - 0(Both) 2. Best Gaze (Lateral Gaze Paresis) - 0(Normal) 3. Visual Field Loss - 0(No visual loss) 4. Facial Palsy - 0(Normal) 5a. Left Arm: Motor (10-second hold) - 0(No drift) 5b. Right Arm: Motor (10-second hold) - 0(No drift) 6a. Left Leg: Motor (5-second hold - always test supine) - 0(No drift) 6b. Right Leg: Motor (5-second hold - always test supine) - 0(No drift) 7. Limb Ataxia (finger/nose \T\ heel/esparza - test with eyes open) - 0(Absent) 8. Sensory Loss (pinprick arms/legs/face) - 0(Normal) 9. Best Language: Aphasia (description/naming/reading) - 0(No aphasia) Initials: umair Signatures: Dispatcher [employer] Josh Cornejo MD MD cha Williams, Irene RN CANDY iw Slade Sacnhes RN RN ll1 Jade Talavera RN RN kc6 Jolene Villa RN RN mb9 Eladio Tran RN RN rg5 Carlos Enrique Ramirez RN RN qf
--- NOTE | 2024-08-20 18:05 | EDPHYS ---
Physician Documentation [facility] Name: Stephanie Thao Age: 79 yrs Sex: Female : 1945 Arrival Date: 08/20/2024 Time: 16:27 Bed 17 Private MD: ED Physician Josh Joshi HPI: 08/20 17:56 This 79 yrs old Female presents to ER via EMS with complaints of Altered umair Mental Status. 17:56 The patient presents with confusion, decreased mental status. Onset: The umair symptoms/episode began/occurred 2 day(s) ago. Possible causes: CVA or TIA, drug use, alcohol, head injury, low blood sugar, seizure, sepsis. Associated signs and symptoms: Pertinent positives: confusion. Current symptoms: In the emergency department the patient's symptoms are unchanged from the initial presentation. Patient's baseline: Neuro: alert but confused. The patient has experienced similar episodes in the past, several times. Historical: - Allergies: 17:08 Macrobid; qf - PMHx: 17:08 Hypertensive disorder; diabetes mellitus; Myocardial infarction; bowel obstruction; qf - PSHx: 17:08 Heart Stents; hysterectomy; Cholecystectomy; qf - Immunization history:: Unknown. - Infectious Disease History:: Denies. - Social history:: Smoking status: Patient denies any tobacco usage or history of. Patient/guardian denies using. ROS: 17:57 Constitutional: Negative for fever, chills, and weight loss, Eyes: Negative for injury, umair pain, redness, and discharge, ENT: Negative for injury, pain, and discharge, Neck: Negative for injury, pain, and swelling, Cardiovascular: Negative for chest pain, palpitations, and edema, Respiratory: Negative for shortness of breath, cough, wheezing, and pleuritic chest pain, Abdomen/GI: Negative for abdominal pain, nausea, vomiting, diarrhea, and constipation, Back: Negative for injury and pain, : Negative for injury, bleeding, discharge, and swelling, MS/Extremity: Negative for injury and deformity, Skin: Negative for injury, rash, and discoloration, Psych: Negative for depression, anxiety, suicide ideation, homicidal ideation, and hallucinations, Allergy/Immunology: Negative for hives, rash, and allergies, Endocrine: Negative for neck swelling, polydipsia, polyuria, polyphagia, and marked weight changes, Hematologic/Lymphatic: Negative for swollen nodes, abnormal bleeding, and unusual bruising, 17:57 Neuro: Positive for altered mental status, weakness, Exam: 17:57 Constitutional: This is a well developed, well nourished patient who is awake, alert, umair and in no acute distress. Head/Face: Normocephalic, atraumatic. Eyes: Pupils equal round and reactive to light, extra-ocular motions intact. Lids and lashes normal. Conjunctiva and sclera are non-icteric and not injected. Cornea within normal limits. Periorbital areas with no swelling, redness, or edema. ENT: Nares patent. No nasal discharge, no septal abnormalities noted. Tympanic membranes are normal and external auditory canals are clear. Oropharynx with no redness, swelling, or masses, exudates, or evidence of obstruction, uvula midline. Mucous membranes moist. Neck: Trachea midline, no thyromegaly or masses palpated, and no cervical lymphadenopathy. Supple, full range of motion without nuchal rigidity, or vertebral point tenderness. No Meningismus. Chest/axilla: Normal chest wall appearance and motion. Nontender with no deformity. No lesions are appreciated. Cardiovascular: Regular rate and rhythm with a normal S1 and S2. No gallops, murmurs, or rubs. Normal PMI, no JVD. No pulse deficits. Respiratory: Lungs have equal breath sounds bilaterally, clear to auscultation and percussion. No rales, rhonchi or wheezes noted. No increased work of breathing, no retractions or nasal flaring. Abdomen/GI: Soft, non-tender, with normal bowel sounds. No distension or tympany. No guarding or rebound. No evidence of tenderness throughout. Back: No spinal tenderness. No costovertebral tenderness. Full range of motion. Skin: Warm, dry with normal turgor. Normal color with no rashes, no lesions, and no evidence of cellulitis. MS/ Extremity: Pulses equal, no cyanosis. Neurovascular intact. Full, normal range of motion. Psych: Awake, alert, with orientation to person, place and time. Behavior, mood, and affect are within normal limits. 17:57 ECG was reviewed by the Attending Physician. 18:00 Musculoskeletal/extremity: DVT Exam: No signs of deep vein thrombosis. no pain, no umari swelling, no tenderness, negative Homans' sign noted on exam, no appreciated bluish discoloration, no erythema, no increased warmth, 18:00 Neuro: Orientation: no acute changes, per EMS, Mentation: Memory: immediate memory is impaired, remote memory is impaired, recent memory is impaired, Cranial nerves: grossly normal, is grossly normal based on the patient's age, no acute changes, Cerebellar function: is grossly normal, is grossly normal based on the patient's age, no acute changes, Motor: is normal, moves all fours, strength is 5/5 in all extremities, Sensation: is normal, no obvious gross deficits, Gait: not applicable seizure activity, is not displayed by the patient, Vital Signs: 16:59 BP 213 / 82; Pulse 79; Resp 16; Temp 98.3; Pulse Ox 98% on R/A; Weight 79.38 kg; Height qf 5 ft. 6 in. ; Pain 0/10; 18:51 BP 185 / 70; Pulse 74; Resp 16; Pulse Ox 99% on R/A; 9 19:30 BP 181 / 100; Pulse 79; Resp 18; Temp 98(O); Pulse Ox 99% ; Pain 0/10; rg5 20:00 BP 177 / 100; Pulse 79; Resp 17; Pulse Ox 98% on R/A; rg5 21:00 BP 173 / 65; Pulse 65; Resp 17; Pulse Ox 96% on R/A; rg5 16:59 Body Mass Index 28.25 (79.38 kg, 167.64 cm) qf 16:59 Pain Scale: Adult qf 19:30 Pain Scale: Adult rg5 NIH Stroke Scale Scores: 17:11 NIHSS Score: 0 qf 18:13 NIHSS Score: 0 [facility] Diogenes Coma Score: 18:00 Eye Response: spontaneous(4). Motor Response: obeys commands(6). Verbal Response: umair oriented(5). Total: 15. MDM: 17:01 Patient medically screened. [facility] 17:59 Data reviewed: vital signs, nurses notes, EMS record, lab test result(s), EKG, [facility] radiologic studies, CT scan, plain films. 08/20 17:03 Order name: Basic Metabolic Panel; Complete Time: 09:08 [facility] 08/20 17:03 Order name: CBC with Diff; Complete Time: 17:48 [facility] 08/20 17:03 Order name: LFT's; Complete Time: 09:08 umair 08/20 17:03 Order name: Magnesium; Complete Time: 09:08 umair 08/20 17:03 Order name: NT PRO-BNP; Complete Time: 09:08 umair 08/20 17:03 Order name: PT-INR; Complete Time: 17:48 umair 08/20 17:03 Order name: Troponin HS; Complete Time: 09:08 [facility]air 08/20 17:03 Order name: Urinalysis w/ reflexes; Complete Time: 09:08 umair 08/20 17:03 Order name: Flu; Complete Time: 17:48 umair 08/20 17:03 Order name: SARS RAPID; Complete Time: 17:48 umair 08/20 18:16 Order name: Urine Culture EDMS 08/20 18:31 Order name: Urinalysis w/ reflexes EDMS 08/20 18:31 Order name: CBC with Automated Diff EDMS 08/20 18:31 Order name: CBC with Automated Diff; Complete Time: 09:08 EDMS 08/20 18:31 Order name: Comprehensive Metabolic Panel EDMS 08/20 18:31 Order name: Comprehensive Metabolic Panel; Complete Time: 09:08 EDMS 08/21 06:18 Order name: Hemoglobin A1c; Complete Time: 09:08 EDMS 08/21 06:26 Order name: Creatine Phosphokinase; Complete Time: 09:08 EDMS 08/21 06:26 Order name: Troponin High Sensitivity; Complete Time: 09:08 EDMS 08/21 06:26 Order name: Lipid Profile; Complete Time: 09:08 EDMS 08/21 07:47 Order name: Glucose, Ancillary Testing; Complete Time: 09:08 EDMS 08/21 11:18 Order name: Basic Metabolic Panel EDMS 08/21 11:18 Order name: Phosphorus EDMS 08/21 11:18 Order name: Creatine Phosphokinase EDMS 08/21 11:18 Order name: Troponin High Sensitivity EDMS 08/21 11:18 Order name: Magnesium EDMS 08/20 17:03 Order name: XRAY Chest (1 view); Complete Time: 09:08 [facility]air 08/20 17:03 Order name: CT Head Brain wo Cont; Complete Time: 09:08 [facility]air 08/20 17:03 Order name: EKG; Complete Time: 17:04 [facility]air 08/20 17:03 Order name: Cardiac monitoring; Complete Time: 17:19 [facility] 08/20 17:03 Order name: EKG - Nurse/Tech; Complete Time: 18:00 [facility] 08/20 17:03 Order name: IV Saline Lock; Complete Time: 17:19 [facility] 08/20 17:03 Order name: Labs collected and sent; Complete Time: 17:19 [facility] 08/20 17:03 Order name: O2 Per Protocol; Complete Time: 17:19 [facility] 08/20 17:03 Order name: O2 Sat Monitoring; Complete Time: 17:19 [facility] EC:57 Rate is 69 beats/min. Rhythm is regular. QRS [place] is Normal. [place] interval is normal. QRS umair interval is normal. QT interval is normal. No Q waves. T waves are Normal. No ST changes noted. Clinical impression: NSR w/ Non-specific ST/T Changes and No evidence of ischemia. Interpreted by me. Reviewed by me. Administered Medications: 17:15 Drug: NS 0.9% IV 500 ml IV at bolus once Route: IV; Rate: bolus; Site: left antecubital;qf 18:41 Follow up: Response: No adverse reaction; IV Status: Completed infusion qf 18:37 Drug: Rocephin IV 1 grams IV at per protocol once; Given slow IV push per pharmacy qf instructions Route: IV; Rate: per protocol; Site: left antecubital; 22:43 Follow up: Response: No adverse reaction; IV Status: Completed infusion rg5 18:38 Drug: NS 0.9% IV 1000 ml IV at 125 ml/hr continuous Route: IV; Rate: 125 ml/hr; Site: qf left antecubital; 08/21 06:11 Follow up: IV Status: Completed infusion; IV Intake: 600ml rg5 Disposition Summary: 08/20/24 18:04 Hospitalization Ordered Notes: Hospitalization Status: Observation umair Provider: Scott Marrero cha Condition: Fair umair Problem: new umair Symptoms: have improved umair Bed/Room Type: Standard umair Location: Telemetry/MedSurg (observation)(08/21/24 11:22) bd Room Assignment: 205(08/21/24 11:44) bd Diagnosis - Dementia in other diseases classified elsewhere without behavioral disturbance umair - Altered mental status, unspecified umair - Essential (primary) hypertension umair - UTI/ Urinary tract infection, site not specified umair - Abnormal levels of other serum enzymes - elevated troponin umair Forms: - Medication Reconciliation Form umair - SBAR form umair - Leadership Thank You Letter [facility] NIH Stroke Scale - NIH Stroke Score Date: 08/20/2024 Time: 17:11 Total Score = 0 10. Dysarthria (speech clarity - read or repeat words) - 0(Normal) 11. Extinction and Inattention (visual/tactile/auditory/spatial/personal) - 0(No abnormality) 1a. Level of Consciousness (LOC) - 0(Alert) 1b. Level of Consciousness (LOC) (Month \T\ Age) - 0(Both) 1c. LOC Commands (Open \T\ Closes Eyes/Cigarette Making Examiner) - 0(Both) 2. Best Gaze (Lateral Gaze Paresis) - 0(Normal) 3. Visual Field Loss - 0(No visual loss) 4. Facial Palsy - 0(Normal) 5a. Left Arm: Motor (10-second hold) - 0(No drift) 5b. Right Arm: Motor (10-second hold) - 0(No drift) 6a. Left Leg: Motor (5-second hold - always test supine) - 0(No drift) 6b. Right Leg: Motor (5-second hold - always test supine) - 0(No drift) 7. Limb Ataxia (finger/nose \T\ heel/esparza - test with eyes open) - 0(Absent) 8. Sensory Loss (pinprick arms/legs/face) - 0(Normal) 9. Best Language: Aphasia (description/naming/reading) - 0(No aphasia) Initials: qf NIH Stroke Scale - NIH Stroke Score Date: 08/20/2024 Time: 18:13 Total Score = 0 10. Dysarthria (speech clarity - read or repeat words) - 0(Normal) 11. Extinction and Inattention (visual/tactile/auditory/spatial/personal) - 0(No abnormality) 1a. Level of Consciousness (LOC) - 0(Alert) 1b. Level of Consciousness (LOC) (Month \T\ Age) - 0(Both) 1c. LOC Commands (Open \T\ Closes Eyes/Cigarette Making Examiner) - 0(Both) 2. Best Gaze (Lateral Gaze Paresis) - 0(Normal) 3. Visual Field Loss - 0(No visual loss) 4. Facial Palsy - 0(Normal) 5a. Left Arm: Motor (10-second hold) - 0(No drift) 5b. Right Arm: Motor (10-second hold) - 0(No drift) 6a. Left Leg: Motor (5-second hold - always test supine) - 0(No drift) 6b. Right Leg: Motor (5-second hold - always test supine) - 0(No drift) 7. Limb Ataxia (finger/nose \T\ heel/esparza - test with eyes open) - 0(Absent) 8. Sensory Loss (pinprick arms/legs/face) - 0(Normal) 9. Best Language: Aphasia (description/naming/reading) - 0(No aphasia) Initials: [facility] Signatures: Dispatcher [employer] EDMS Yeni Davis Corey, MD MD cha Able, Lacie RN RN lg3 Carlos Enrique Ramirez RN RN qf Eladio Tran RN rg5 Corrections: (The following items were deleted from the chart) 08/20 17:04 17:03 BASIC METABOLIC PANEL+C.LAB.BRZ ordered. EDMS EDMS 17:04 17:03 CBC+H.LAB.BRZ ordered. EDMS EDMS 17:04 17:03 HEPATIC FUNCTION+C.LAB.BRZ ordered. EDMS EDMS 17:04 17:03 MAGNESIUM+C.LAB.BRZ ordered. EDMS EDMS 17:04 17:03 PROBNP+C.LAB.BRZ ordered. EDMS EDMS 17:04 17:03 PROTIME (+INR)+COAG.LAB.BRZ ordered. EDMS EDMS 17:04 17:03 Troponin High Sensitivity+C.LAB.BRZ ordered. EDMS EDMS 17:04 17:03 Urinalysis+U.LAB.BRZ ordered. EDMS EDMS 17:04 17:03 Influenza Screen (A \T\ B)+BA.LAB.BRZ ordered. EDMS EDMS 17:04 17:03 SARS-COV-2 Antigen Rapid+I.LAB.BRZ ordered. EDMS EDMS 21:37 18:04 Telemetry/MedSurg (observation) [place] [id number] 21:37 18:04 [facility] 08/21 11:22 08/20 21:37 [facility] ER HOLD lg3 bd 08/21 11:22 08/20 21:37 ERHOLD- lg3 bd 08/21 11:44 11:22 204 bd bd
[2024-08-20] MEDS ORDERED: ONDANSETRON 4 MG/2 ML VIAL IV PRN (18:27)
[2024-08-20] MEDS ORDERED: NA CHLORIDE 0.9% 1,000 ML ONE (18:28)
[2024-08-20] MEDS ORDERED: CEFTRIAXONE 1000 MG/VIAL ONE (18:28)
--- NOTE | 2024-08-20 18:31 | P.HP ---
Certification for Inpatient Patient admitted to: Inpatient With expected LOS: >2 Midnights Practitioner: I am a practitioner with admitting privileges, knowledge of patient current condition, hospital course, and medical plan of care. Services: Services provided to patient in accordance with Admission requirements found in Title 42 Section 412.3 of the Code of Federal Regulations Patient History Date of Service: 08/21/24 Reason for admission: AMS History of Present Illness: 79 yrs old Female with past medical history hypertension, diabetes, CAD, myocardial infraction status post PCI, bowel obstruction brought to ER with confusion and altered mental status. Patient has been altered for the last 2 days. Denies any chest pain or shortness of breath. Patient is a poor hi storian hence most of the history is obtained from the chart review and also talking with the ER physician. Patient was assessed in the ER and is admitted for further management of acute encephalopathy Allergies nitrofurantoin [From Macrobid] Allergy (Mild, Verified 10/24/23 17:24) Home medications list reviewed: Yes Home Medications: Evolocumab [Repatha Sureclick] 140 mg SQ 10/24/23 Ezetimibe [Zetia*] 1 tab PO DAILY 10/24/23 Gabapentin 1 tab PO BEDTIME 10/24/23 Glipizide [Glipizide Xl] 2 tab PO BID 10/24/23 Linagliptin [Tradjenta] 5 mg PO DAILY 10/24/23 Losartan Potassium 1 tab PO DAILY 10/24/23 Metoprolol Succinate [Toprol Xl*] 1 tab PO DAILY 10/24/23 Aspirin [Aspirin EC] 81 mg PO DAILY #30 tab 10/26/23 Clopidogrel Bisulfate [Plavix] 75 mg PO DAILY #30 tab 10/26/23 - Past Medical/Surgical History Diabetic: Yes Past Medical History: Reviewed- Non-Contributory -: HTN -: NIDDM -: HLD -: Heart Cath -: HTN -: Scoliosis -: Cataracts(fixed) Past Surgical History: Reviewed- Non-Contributory -: Angioplasty with 4 stents -: hysterectomy -: cholecystectomy -: bowel resection Psychosocial/ Personal History[facility] - Family History Mother -: Heart disease, Diabetes - Social History Smoking Status: Never smoker Alcohol use: No CD- Drugs: No Caffeine use: No Review of Systems 10-point ROS is otherwise unremarkable Physical Examination - Vital Signs Temperature: 97.2 F Blood Pressure: 132/76 Pulse: 78 Respirations: 18 Pulse Ox (%): 94 - Physical Exam General: Alert, Confused HEENT: Atraumatic, Normocephalic Neck: Supple, JVD not distended Respiratory: Clear to auscultation bilaterally, Normal air movement Cardiovascular: Normal pulses, Regular rate/rhythm, Normal S1 S2 Capillary refill: <2 Seconds Gastrointestinal: Soft and benign, W/out hepatosplenomegaly Musculoskeletal: No clubbing, No swelling Integumentary: No rashes, No tenderness/swelling Neurological: Abnormal speech Lymphatics: No axilla or inguinal lymphadenopathy - Studies Laboratory Data (last 24 hrs) 08/20/24 08/20/24 08/20/24 17:09 17:09 17:09 WBC 8.40 Hgb 12.5 Hct 35.5 L Plt Count 226 PT 12.4 INR 1.11 Sodium 136 Potassium 3.9 BUN 18 Creatinine 0.79 Glucose 172 H Magnesium 1.7 Total Bilirubin 0.6 AST < 10 L ALT 19 Alkaline Phosphatase 95 Microbiology Data (last 24 hrs): 08/20/24 17:09 Nasopharnyx Influenza Type A Antigen Screen - Final 08/20/24 17:09 Nasopharnyx Influenza Type B Antigen Screen - Final Assessment and Plan - Plan Acute encephalopathy metabolic Monitor neuro vital signs closely CT head negative for any acute changes Monitor closely under telemetry UTI Started on IV antibiotic Started on IV fluids Obtain culture Change antibiotic as per sensitivity NSTEMI possibly type 2 Will trend cardiac enzymes Will monitor telemetry Started on aspirin and statin EKG did not show any acute changes suggestive of ischemia Patient denies any chest pain Echocardiogram Cardiology consult Hypertension Antihypertensives titrated Continue home medications and titrate as needed Diabetes Insulin sliding scale Accu-Chek before every meal and at bedtime GI/DVT prophylaxis Advanced directive full code Discharge Plan: Home Plan to discharge in: 48 Hours - Advance Directives Does patient have a Living Will: No Does patient have a Durable POA for Healthcare: No - Code Status/Comfort Care Code Status: Full Code Time Spent Managing Pts Care (In Minutes): 48
--- NOTE | 2024-08-20 18:33 | RAD REPORT ---
EXAM: Head Brain Wo Cont HISTORY: Dizziness;Headache COMPARISON: None TECHNIQUE: Multiple contiguous axial images were obtained for a CT of the brain without contrast. Sag ittal and coronal reformats were performed. One or more of the following dose reduction techniques were used: Automated exposure control, adjus tment of the mA and kV according to patient size, and iterative reconstruction. Unless otherwise specified, incidental findings do not require dedicated imaging follow-up. FINDINGS: No evidence of hydrocephalus, intracranial hemorrhage, or extra-axial fluid collection. Mild brain atrophy with mild periventricular and deep white matter chronic microvascular ischemic ch anges present. The calvarium is intact. Left maxillary sinus mucus retention cysts. Mastoid air cells are essentiall y clear. IMPRESSION: No evidence of acute intracranial abnormality. Findings as above.
[2024-08-20 18:35] LABS: Troponin High Sensitivity 100.2 pg/mL (<58.9)
[2024-08-20] MEDS: NA CHLORIDE 0.9% 1,000 ML IV SCH (19:00)
--- NOTE | 2024-08-20 19:31 | RAD REPORT ---
EXAMINATION: ONE VIEW CHEST XR CLINICAL INDICATION: Female, 79 years old.,COUGH TECHNIQUE: Frontal chest projection is submitted. Examination is limited by patient positioning and t echnique. COMPARISON: 02/21/2024 FINDINGS: The lungs are well inflated and clear. No pneumothorax or sizable effusion. The heart is normal in s ize. IMPRESSION: No acute intrathoracic abnormalities.
[2024-08-20] MEDS: CEFEPIME 1 GM in NA CHLORIDE 0.9% 100 ML IV SCH (21:00)
[2024-08-20] MEDS ORDERED: NA CHLORIDE 0.9% 100 ML ONE (22:50)
[2024-08-20] MEDS ORDERED: CEFEPIME 1 GM/VIAL ONE (22:50)
[2024-08-21] MEDS ORDERED: MORPHINE 2 MG/ML SYR IV PRN (01:26)
[2024-08-21] MEDS ORDERED: HYDRALAZINE HCL 20 MG/ML VIAL ONE (02:04)
[2024-08-21] MEDS: HYDRALAZINE HCL 20 MG/ML VIAL IV PRN (02:06)
[2024-08-21 05:03] LABS: Absolute Basophils 0.1 K/uL (0-0.5); Absolute Eosinophils 0.1 K/uL (0-0.5); Absolute Lymphocytes (CBC) 1.6 K/uL (0.7-4.9); Absolute Monocytes 0.6 K/uL (0.1-1.3); Absolute Neutrophil 5.7 K/uL (1.8-8.0); Basophils % 0.7 % (0-1.3); Eosinophils % 0.8 % (0-4.4); Hemoglobin 12.5 g/dL (12.0-15.0); Lymphocytes % 19.9 % (15.3-44.8); MCH 30.5 pg (27.0-35.0); MCHC 34.7 g/dL (32.0-36.0); MCV 87.9 fL (80-100); MPV 8.4 fL (7.6-11.3); Monocytes % 7.8 % (3.3-12.3); Neutrophils % 70.8 % (41.7-73.7); Nucleated Red Blood Cells % 0.1 % (0-0); Platelets 204 thou/uL (152-406); Red Cell Distribution Width 12.9 % (12.1-15.2)
[2024-08-21 05:24] LABS: Albumin 3.4 g/dL (3.4-5.0); Albumin/Globulin Ratio 1.2 (1.1-1.8); Anion Gap 9.4 mEq/L (5.0-15.0); Globulin 2.8 g/dL (2.3-3.5); Potassium 3.4 mEq/L (3.5-5.1); Protein, Total 6.2 g/dL (6.4-8.2)
[2024-08-21] MEDS ORDERED: D10W 125 ML IV PRN (05:42)
[2024-08-21] MEDS ORDERED: GLUCAGON 1 MG/VIAL IM PRN (05:42)
[2024-08-21 06:26] LABS: Troponin High Sensitivity 112.3 pg/mL (<58.9)
[2024-08-21] MEDS: INSULIN REGULAR (HUMAN) 100 UNIT/ML SQ SCH (07:30)
[2024-08-21] MEDS: MAGNESIUM SULFATE 1 gm IVPB 1 GM/100 ML BAG IV SCH (08:10)
[2024-08-21] MEDS ORDERED: MAGNESIUM SULFATE 1 gm IVPB 1 GM/100 ML BAG IV ONE (08:19)
[2024-08-21] MEDS ORDERED: NA CHLORIDE 0.9% 100 ML ONE (08:19)
[2024-08-21] MEDS ORDERED: INSULIN REGULAR (HUMAN) 100 UNIT/ML ONE (08:19)
[2024-08-21] MEDS ORDERED: ASPIRIN EC 81 MG TAB PO ONE (08:19)
[2024-08-21] MEDS ORDERED: CEFEPIME 1 GM/VIAL ONE (08:20)
[2024-08-21] MEDS: ASPIRIN EC 81 MG TAB PO SCH (08:40)
[2024-08-21] MEDS: CEFEPIME 2 GM in NA CHLORIDE 0.9% 100 ML IV SCH (11:00)
[2024-08-21 11:10] LABS: Anion Gap 6.4 mEq/L (5.0-15.0); Phosphorus 1.9 mg/dL (2.5-4.9); Potassium 3.4 mEq/L (3.5-5.1)
[2024-08-21 11:18] LABS: Troponin High Sensitivity 92.2 pg/mL (<58.9)
[2024-08-21] MEDS: POTASS/SODIUM PHOSPHATE 1 PKT POWD.PACK PO ONE (11:45)
--- NOTE | 2024-08-21 12:56 | EKG ---
Test Date: 2024-08-20 Test Time: 17:46:23 Health Promotion Manager: DEBBIE MEASUREMENT RESULTS: Intervals: Rate: 69 CA: 176 QRSD: 82 QT: 402 QTc: 430 [place]: P: 62 CA: 176 QRS: 12 T: 53 INTERPRETIVE STATEMENTS: Normal sinus rhythm Septal infarct, age undetermined Abnormal ECG Compared to ECG 02/21/2024 19:00:06 No significant changes Electronically Signed On 08-21-24 12:54:24 CDT by Reagan Viramontes
--- NOTE | 2024-08-21 13:15 | ECHO ---
HEIGHT: 5 ft 6 in WEIGHT: 175 lb 0.047 oz DATE OF STUDY: 08/21/[address]: Oliverio Marrero DO 2-DIMENSIONAL: YES M.MODE: YES DOPPLER: YES COLOR FLOW: YES TDS: PORTABLE: YES DEFINITY: BUBBLE STUDY: DIAGNOSIS: NON ST ELEVATION MYOCARDIAL INFARCTION CARDIAC HISTORY: CATHERIZATION: NO SURGERY: NO PROSTHETIC VALVE: NO PACEMAKER: NO MEASUREMENTS (cm) DIASTOLIC (NORMALS) SYSTOLIC (NORMALS) IVSd 1.1 (0.6-1.2) LA Diam 2.0 (1.9-4.0) LVEF 55-60% LVIDd 3.2 (3.5-5.7) LVIDs 2.3 (2.0-3.5) %FS 29% LVPWd 1.2 (0.6-1.2) Ao Diam 2.5 (2.0-3.7) 2 DIMENSIONAL ASSESSMENT: RIGHT ATRIUM: NORMAL LEFT ATRIUM: NORMAL RIGHT VENTRICLE: NORMAL LEFT VENTRICLE: NORMAL TRICUSPID VALVE: NORMAL MITRAL VALVE: NORMAL PULMONIC VALVE: NORMAL AORTIC VALVE: NORMAL PERICARDIAL EFFUSION: NONE AORTIC ROOT: NORMAL LEFT VENTRICULAR WALL MOTION: NORMAL DOPPLER/COLOR FLOW: GRADE I DIASTOLIC DYSFUNCTION COMMENTS: 1. NORMAL LEFT VENTRICULAR SYSTOLIC FUNCTION, EJECTION FRACTION 55-60%, NORMAL WALL MOTION 2. GRADE I DIASTOLIC DYSFUNCTION 3. NORMAL FILLING PRESSURE (RIGHT ATRIAL PRESSURE 0-5 mmHg) TECHNOLOGIST: LARRY LEAL
[2024-08-21] MEDS: MEMANTINE HCL 10 MG TABLET PO SCH (13:56)
--- NOTE | 2024-08-21 14:27 | P.PN ---
Subjective Date of Service: 08/21/24 Chief Complaint: AMS Patient interactive but remains confused. I met with her son on the bedside who mentioned patient has been diagnosed with dementia and family have realized as low progression. However patient became very confused over the last few days. No recorded fever. Physical Examination - Vital Signs Temperature: 98.6 F Blood Pressure: 189/90 Pulse: 84 Respirations: 16 Pulse Ox (%): 98 - Studies Laboratory Data (last 24 hrs) 08/20/24 08/20/24 08/20/24 17:09 17:09 17:09 WBC 8.40 Hgb 12.5 Hct 35.5 L Plt Count 226 PT 12.4 INR 1.11 Sodium 136 Potassium 3.9 BUN 18 Creatinine 0.79 Glucose 172 H Magnesium 1.7 Total Bilirubin 0.6 AST < 10 L ALT 19 Alkaline Phosphatase 95 Microbiology Data (last 24 hrs): 08/20/24 17:09 Nasopharnyx Influenza Type A Antigen Screen - Final 08/20/24 17:09 Nasopharnyx Influenza Type B Antigen Screen - Final Assessment And Plan - Plan Physical examination General: Awake, confused, NAD, HEENT: Conjunctiva not pale, anicteric sclera Neck: Supple, no elevated JVD Heart: Heart sounds 1 and 2 normal, regular rhythm, normal rate, no pedal edema Lungs: Clear to auscultation bilaterally, adequate breath sounds bilaterally, no rhonchi or crackles. Abdomen: Soft, nondistended, nontender, normal bowel sounds. Extremities: No tenderness, no deformity Skin: Normal skin turgor, no rash, no nodules or ulcers. Neuro: No focal motor deficit. Normal speech. Psychiatry: no agitation. Diagnosis Acute metabolic encephalopathy Acute cystitis without hematuria NSTEMI type II Essential hypertension Diabetes mellitus type 2 Dementia Plan: Acute metabolic encephalopathy Acute cystitis without hematuria History of dementia CT head negative for any acute changes Continue IV cefepime. Supportive measures with IV hydration. Follow cultures. Resume home dementia medications. Monitor for agitation. NSTEMI type 2 Elevated troponin likely secondary demand ischemia. Patient is asymptomatic. Troponin trended down Telemetry monitoring. Continue aspirin and statin Echocardiogram Cardiology consulted Hypertension Resume home antihypertensives. Hydralazine as needed for BP spikes. Diabetes type II Insulin sliding scale Accu-Chek before every meal and at bedtime GI/DVT prophylaxis: SCD Advanced directive full code
[2024-08-21] MEDS ORDERED: HOME MED 1 EA UNK (Losartan Potassium [Losartan Potassium] 25 MG Tablet) PO SCH (14:29)
[2024-08-21 16:04] LABS: Troponin High Sensitivity 82.2 pg/mL (<58.9)
[2024-08-21] MEDS: METOPROLOL XL 25 MG TAB PO SCH (16:22)
--- NOTE | 2024-08-21 19:57 | CON ---
Date of Consultation: 08/21/2024 Reason For Consultation: Elevated troponin. History Of Present Illness: A 79-year-old female, history of coronary artery disease, status post PC I within the last year, diabetes, hypertension, presented to the emergency room with altered mental s tatus for about 2 days. I evaluated her by bedside. Denies having any chest pain. She is very comf ortable. No chest pain recently or significant shortness of breath. She appears to be pleasantly co nfused. No other symptoms. Past Medical History: As outlined above in the HPI. Medications: Refer reconciliation sheet for detailed list. Allergies: NITROFURANTOIN. Family History: No premature coronary artery disease or cancer. Social History: She does not smoke or drink. Does not use any drugs. Review of Systems: All systems reviewed, they are negative except as mentioned in the HPI. Physical Examination: Vital Signs: Reviewed. Blood pressure was 189/90, temperature is 98.6, heart rate is 84, and breath ing at 16. General: Pleasant elderly female, no apparent distress. Head and Neck: Pupils are equal, reactive to light. Intact eye movements. No JVD. No cervical lym phadenopathy. Neck is supple. Thyroid is not enlarged. Lungs: Clear to auscultation bilaterally. No rhonchi, wheezing, or crackles. No accessory muscle u se. Heart: Regular rate and rhythm. No extra sounds. Abdomen: Soft, nontender. Bowel sounds positive. No organomegaly. No masses or hernia. No rigidi ty or rebound. Extremities: No edema, clubbing, or cyanosis. Intact pulses. Skin: No rash. No nodule. Neurologic: Alert, awake, oriented x3. No acute focal deficits appreciated. Investigations: Troponin peaked at 100 and now it is 92. BUN 11, creatinine 0.7, potassium 3.4, and hemoglobin is 12.5. Assessment And Recommendations: 1.Elevated troponin. There is no chest pain. This is likely demand ischemia as she has signs of se psis from UTI. We will plan for outpatient cardiac evaluation with stress test. No cardiac workup i s recommended while inpatient at this moment to treat her sepsis picture with UTI. 2.Urinary tract infection, on IV antibiotics. 3.Coronary artery disease. Positive troponin, but no chest pain, this is demand. We will plan for outpatient monitoring. 4.Hypertension. Blood pressure is elevated. Resume home medications and adjust as needed. Thank you for the consult. FABRIZIO Voice ID: [id number] Report ID: [id number]
[2024-08-21] MEDS: DONEPEZIL HCL 5 MG TAB PO SCH (20:31)
[2024-08-21] MEDS: ATORVASTATIN 40 MG TAB PO SCH (20:31)
[2024-08-22 04:52] LABS: Absolute Basophils 0.1 K/uL (0-0.5); Absolute Eosinophils 0.1 K/uL (0-0.5); Absolute Lymphocytes (CBC) 1.3 K/uL (0.7-4.9); Absolute Monocytes 0.7 K/uL (0.1-1.3); Absolute Neutrophil 6.1 K/uL (1.8-8.0); Basophils % 0.6 % (0-1.3); Eosinophils % 0.8 % (0-4.4); Hematocrit 37.4 % (36.0-45.0); Hemoglobin 12.7 g/dL (12.0-15.0); Lymphocytes % 16.2 % (15.3-44.8); MCH 30.1 pg (27.0-35.0); MCV 88.5 fL (80-100); MPV 8.4 fL (7.6-11.3); Monocytes % 8.2 % (3.3-12.3); Neutrophils % 74.2 % (41.7-73.7); Platelets 223 thou/uL (152-406); RBC Red Blood Cell Count 4.22 M/uL (3.86-4.86); Red Cell Distribution Width 12.9 % (12.1-15.2)
[2024-08-22 05:09] LABS: Anion Gap 9.4 mEq/L (5.0-15.0); Phosphorus 2.6 mg/dL (2.5-4.9); Potassium 3.4 mEq/L (3.5-5.1)
[2024-08-22] MEDS: LOSARTAN POTASSIUM 50 MG TABLET PO SCH (09:47)
[2024-08-22] MEDS: POTASSIUM CL SA 10 MEQ TAB PO ONE (09:47)
--- NOTE | 2024-08-22 12:31 | P.PN ---
Subjective Date of Service: 08/22/24 Chief Complaint: AMS No reported issues overnight. Patient reports good sleep. She is still confused. No recorded fever. She denies dysuria. Physical Examination - Vital Signs Temperature: 98.1 F Blood Pressure: 159/74 Pulse: 83 Respirations: 18 Pulse Ox (%): 97 Assessment And Plan - Plan Physical examination General: Awake, confused, NAD, HEENT: Anicteric sclera Neck: Supple, no elevated JVD Heart: Heart sounds 1 and 2 normal, regular rhythm, normal rate, no pedal edema Lungs: Clear to auscultation bilaterally, adequate breath sounds bilaterally, no rhonchi or crackles. Abdomen: Soft, nondistended, nontender, normal bowel sounds. Extremities: No tenderness, no deformity Skin: Normal skin turgor, no rash, no nodules or ulcers. Neuro: No focal motor deficit. Normal speech. Psychiatry: no agitation. Diagnosis Acute metabolic encephalopathy Acute cystitis without hematuria NSTEMI type II Essential hypertension Diabetes mellitus type 2 Dementia Plan: Acute metabolic encephalopathy Acute cystitis without hematuria History of dementia CT head negative for any acute changes Urine cultures growing gram-negative rods. Continue IV cefepime. Supportive measures with IV hydration. Follow cultures. Monitor for agitation. Continue home dementia medications. Neurology-Dr. Novak consulted NSTEMI type 2 Elevated troponin likely secondary demand ischemia. Patient is asymptomatic. Troponin trended down Telemetry monitoring. Continue aspirin and statin Echocardiogram unremarkable, normal EF. Cardiology input appreciated. Hypertension Continue home antihypertensives. Hydralazine as needed for BP spikes. Diabetes type II Insulin sliding scale Start Semglee given hyperglycemia. Home antidiabetic's on hold. Accu-Chek before every meal and at bedtime GI/DVT prophylaxis: SCD Advanced directive full code
[2024-08-22] MEDS: INSULIN GLARGINE 100 UNIT/ML SQ SCH (12:43)
[2024-08-23] MEDS: ZOLPIDEM TARTRATE 5 MG TABLET PO PRN (02:15)
[2024-08-23 06:01] LABS: Absolute Eosinophils 0.1 K/uL (0-0.5); Absolute Lymphocytes (CBC) 1.6 K/uL (0.7-4.9); Absolute Monocytes 0.6 K/uL (0.1-1.3); Absolute Neutrophil 5.8 K/uL (1.8-8.0); Basophils % 0.5 % (0-1.3); Eosinophils % 1.1 % (0-4.4); Hematocrit 35.1 % (36.0-45.0); Hemoglobin 12.1 g/dL (12.0-15.0); Lymphocytes % 19.5 % (15.3-44.8); MCH 30.8 pg (27.0-35.0); MCHC 34.5 g/dL (32.0-36.0); MCV 89.1 fL (80-100); MPV 8.2 fL (7.6-11.3); Monocytes % 7.7 % (3.3-12.3); Neutrophils % 71.2 % (41.7-73.7); Platelets 178 thou/uL (152-406); RBC Red Blood Cell Count 3.94 M/uL (3.86-4.86); Red Cell Distribution Width 12.9 % (12.1-15.2)
[2024-08-23 06:17] LABS: Anion Gap 7.6 mEq/L (5.0-15.0); Potassium 3.6 mEq/L (3.5-5.1)
[2024-08-23] MEDS: POTASSIUM CL SA 10 MEQ TAB PO ONE (08:58)
[2024-08-23] MEDS: ENOXAPARIN 40 MG/0.4 ML SQ SCH (08:58)
--- NOTE | 2024-08-23 15:10 | P.PN ---
Subjective Date of Service: 08/23/24 Chief Complaint: AMS Patient is awake and interactive. She has short-term memory loss. No recorded fever. Physical Examination - Vital Signs Temperature: 98.5 F Blood Pressure: 193/83 Pulse: 80 Respirations: 16 Pulse Ox (%): 98 - Studies Microbiology Data (last 24 hrs): 08/20/24 17:35 Clean Catch Urine [place] Count - Final >100,000 CFU/ML. 08/20/24 17:35 Clean Catch Urine - Final Serratia Plymuthica Assessment And Plan - Plan Physical examination General: Awake, NAD, HEENT: Anicteric sclera Neck: Supple, no elevated JVD Heart: Heart sounds 1 and 2 normal, regular rhythm, normal rate, no pedal edema Lungs: Clear to auscultation bilaterally, adequate breath sounds bilaterally, no rhonchi or crackles. Abdomen: Soft, nondistended, nontender, normal bowel sounds. Extremities: No tenderness, no deformity Skin: Normal skin turgor, no rash, no nodules or ulcers. Neuro: No focal motor deficit. Normal speech. Psychiatry: no agitation. Diagnosis Acute metabolic encephalopathy Acute cystitis without hematuria NSTEMI type II Essential hypertension Diabetes mellitus type 2 Dementia Plan: Acute metabolic encephalopathy Acute cystitis without hematuria History of dementia CT head negative for any acute changes Urine cultures grew Serratia. Transition IV cefepime to oral ciprofloxacin. Clinically improved. Patient has impaired short-term memory consistent with dementia. Monitor for agitation. Continue home dementia medications. Neurology-Dr. Novak to evaluate patient. NSTEMI type 2 Elevated troponin likely secondary demand ischemia. Patient is asymptomatic. Troponin trended down Telemetry monitoring. Continue aspirin and statin Echocardiogram unremarkable, normal EF. Cardiology input appreciated. Hypertension Uncontrolled Continue home antihypertensives. Amlodipine added. Hydralazine as needed for BP spikes. Diabetes type II Insulin sliding scale Continue Semglee given hyperglycemia. Home antidiabetic's on hold. Accu-Chek before every meal and at bedtime GI/DVT prophylaxis: Lovenox Advanced directive full code
[2024-08-23] MEDS: AMLODIPINE 10 MG TAB PO SCH (15:17)
--- NOTE | 2024-08-23 17:12 | CON ---
Reason For Consultation: Consultation called because of altered mental status. History Of Present Illness: Ms. 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 She did have a repeat brain MRI, February 28, 2023, showing the glioma to be unchanged compar ed to a study done previously. The study again is in the right thalamic region. At baseline in clin ic, she has difficulty with recalling thoughts, words, conversations, and orientation. She was resid ing at [facility], but did need help for daily activities and medications. In addition, the neuropathy did cause burning, tingling, numbness in her feet, especially at night and she had been ma naged with gabapentin. For her cognitive deficits, she was on galantamine 8 mg twice daily without a ny worsening or improvement in memory loss. Regarding the reason for hospitalization, from review and the chart notes and the patient, she had be come more confused over at least 2 days and was then brought in for evaluation. In the emergency dep artment, her imaging included a head CT scan on August 20. This study showed no evidence of hydroc ephalus, intracranial hemorrhage, extra-axial fluid collection. There was mild brain atrophy with mi ld periventricular and deep white matter chronic small vessel ischemic disease. The calvarium is not ed and mentioned to be intact. However, there is no mention of a mass seen on MRI of the brain. The last brain MRI from February did show the subtle FLAIR signal persists in the right thalamus without pathological enhancement. The finding per the radiologist could have represented underlying demyelinating disorder, although given the patient's age and just the singular location, this is les s likely the etiology. Her complete blood count with differential was unremarkable. Coagulation panel unremarkable. Electr olyte panel showed no abnormalities. There were significant blood sugars ranged up to 234. Calcium was normal. Magnesium unremarkable. Phosphorus unremarkable. She did have troponin 1 high sensitiv ity very elevated to 82.2 and is being seen by the Cardiology Service. Creatine kinase was 55. She did have urinalysis indicating a possible urinary tract infection with 4+ gram-negative rods identifi ed as Serratia plymuthica. The bacteria are near pansensitive. She is placed on hydration and has h ad cefepime 2 g every 12 hours for the antibiotic. Past Medical History: Hypertension, diabetes, heart disease, cardiac stents placed, arthritis. Surgical History: Again cardiac stents in 2006 and 2010, bowel obstruction surgery in 2001, hysterec elizabeth in 1997, in 1981. Family History: Positive for diabetes in mother and sister, heart disease in both parents. Social History: The patient resides at a local assisted. No recent alcohol, tobacco, or IV drug us e. Review of Systems: Mild disorientation, confusion. The patient admits to that. Denies any ongoing fevers or chills. N o very obvious dysuria, pyuria; however, there is a urinary tract infection that is undefined. Physical Examination: Vital Signs: Blood pressure 159 to 173 over 63 to 78, pulse 59 to 83, respiratory rate 15 to 18, tem perature 98.1, oxygen saturation 97% on room air. General: Ms. Thao is resting comfortably in bed. She is in no acute distress. HEENT: She appears normocephalic, atraumatic. Sclerae anicteric. Oropharynx moist. Neck: Supple. Chest: Clear. Heart: Regular. Extremities: Show no significant edema, cyanosis, or clubbing. She is able to follow commands such as to cross the midline to point to her her right hand and is on the left side to show a t humbs-up sign bilaterally. She had some difficulty identifying where she was. Eventually did get to [place], did get to being in the hospital and would follow one-step command without difficulty. She did work with the physical therapists and was able to ambulate 300 feet without an assistive de vice with steady toan and good balance. Did require some truncal support for sitting up. Assessment: Ms. Thao is a 79-year-old patient with possible toxic encephalopathy from a urinary t ract infection. Her electrolytes do not support metabolic encephalopathy. Blood sugars are slightly elevated. She did have elevated troponins and is being evaluated by the Cardiology Service. No diogenes dence of any acute central nervous system issues. No findings noted on the CT scan, but on a prior M RI, the possibility of either a glioma, demyelination was identified. However, again this patient's age is not in that range for demyelinating conditions and it will be only localized to one specific a isabel, it will be very unusual for demyelinating condition. She does have comorbid dyslipidemia, of co urse the Alzheimer's dementia, hypertension. Plan: She may be discharged to a facility with a memory care unit. May have physical therapy contin ue to include cognitive therapy with speech. The patient's son did come by the office requesting pap ers to be signed in terms of him being a power of poultry breeder and managing her affairs. Those will be r evisited at some point once the patient is discharged. SOLANGE/ALEX Voice ID: [id number] Report ID: [id number]
[2024-08-24] MEDS: HYDROCODONE/APAP 5/325 MG TAB PO PRN (00:07)
[2024-08-24] MEDS: CIPROFLOXACIN HCL 500 MG TAB PO SCH (09:45)
--- NOTE | 2024-08-24 12:08 | P.PN ---
Subjective Date of Service: 08/24/24 Chief Complaint: AMS Patient is awake and interactive. She has short-term memory loss. She has no complaint. Physical Examination - Vital Signs Temperature: 98 F Blood Pressure: 176/79 Pulse: 69 Respirations: 16 Pulse Ox (%): 100 - Studies Microbiology Data (last 24 hrs): 08/20/24 17:35 Clean Catch Urine [place] Count - Final >100,000 CFU/ML. 08/20/24 17:35 Clean Catch Urine - Final Serratia Plymuthica Assessment And Plan - Plan Physical examination General: Awake, NAD, HEENT: Anicteric sclera Neck: Supple, no elevated JVD Heart: Heart sounds 1 and 2 normal, regular rhythm, normal rate, no pedal edema Lungs: Clear to auscultation bilaterally, adequate breath sounds bilaterally, no rhonchi or crackles. Abdomen: Soft, nondistended, nontender, normal bowel sounds. Extremities: No tenderness, no deformity Skin: Normal skin turgor, no rash, no nodules or ulcers. Neuro: No focal motor deficit. Normal speech. Psychiatry: no agitation. Diagnosis Acute metabolic encephalopathy Acute cystitis without hematuria NSTEMI type II Essential hypertension Diabetes mellitus type 2 Dementia Plan: Acute metabolic encephalopathy Acute cystitis without hematuria History of dementia CT head negative for any acute changes Urine cultures grew Serratia. IV cefepime transitioned to oral ciprofloxacin. Clinically improved. Patient has impaired short-term memory consistent with dementia. Monitor for agitation. Continue home dementia medications. Neurology-Dr. Novak's evaluation is pending NSTEMI type 2 Elevated troponin likely secondary demand ischemia. Patient is asymptomatic. Troponin trended down Telemetry monitoring. Continue aspirin and statin Echocardiogram unremarkable, normal EF. Cardiology input appreciated. Hypertension Uncontrolled Continue losartan, metoprolol and amlodipine Hydralazine as needed for BP spikes. Diabetes type II Insulin sliding scale Continue Semglee given hyperglycemia. Home antidiabetic's on hold. Accu-Chek before every meal and at bedtime GI/DVT prophylaxis: Lovenox Advanced directive full code
[2024-08-25 06:21] LABS: Anion Gap 9.5 mEq/L (5.0-15.0); Potassium 3.5 mEq/L (3.5-5.1)
[2024-08-25] MEDS: POTASSIUM 25 MEQ EFFERV TAB PO ONE (08:00)
[2024-08-25] MEDS: POTASSIUM CL SA 10 MEQ TAB PO ONE (10:39)
--- NOTE | 2024-08-25 13:45 | P.PN ---
Subjective Date of Service: 08/25/24 Chief Complaint: AMS Patient is awake and interactive. Patient's son reported patient cognitive capacity fluctuates. Patient denies any complaint. No issues overnight, no reported agitation. Physical Examination - Vital Signs Temperature: 97.9 F Blood Pressure: 148/65 Pulse: 60 Respirations: 12 Pulse Ox (%): 96 Assessment And Plan - Plan Physical examination General: Awake, NAD, Neck: Supple, no elevated JVD Heart: Heart sounds 1 and 2 normal, regular rhythm, normal rate, no pedal edema Lungs: Clear to auscultation bilaterally, adequate breath sounds bilaterally, no rhonchi or crackles. Abdomen: Soft, nondistended, nontender, normal bowel sounds. Extremities: No tenderness, no deformity Skin: Normal skin turgor, no rash, no nodules or ulcers. Neuro: No focal motor deficit. Normal speech. Psychiatry: no agitation. Diagnosis Acute metabolic encephalopathy Acute cystitis without hematuria NSTEMI type II Essential hypertension Diabetes mellitus type 2 Dementia Plan: Acute metabolic encephalopathy Acute cystitis without hematuria History of dementia Delirium resolved. CT head negative for any acute changes Urine cultures grew Serratia. IV cefepime transitioned to oral ciprofloxacin. Continue oral ciprofloxacin Clinically improved. Patient has impaired short-term memory consistent with dementia. Monitor for agitation. Continue home dementia medications. Neurology-Dr. Novak's input appreciated. NSTEMI type 2 Elevated troponin likely secondary demand ischemia. Patient is asymptomatic. Troponin trended down Telemetry monitoring. Continue aspirin and statin Echocardiogram unremarkable, normal EF. Cardiology input appreciated. Hypertension Continue losartan, metoprolol and amlodipine Hydralazine as needed for BP spikes. Diabetes type II Insulin sliding scale Continue Semglee given hyperglycemia. Home antidiabetic's on hold. Accu-Chek before every meal and at bedtime. Chronic back pain Gabapentin resumed and dose changed to given only at bedtime for now. GI/DVT prophylaxis: Lovenox Advanced directive full code
[2024-08-25] MEDS: HALOPERIDOL LACT 5 MG/ML INJ IV ONE (17:56)
[2024-08-25] MEDS: CEFDINIR 300 MG CAP PO SCH (20:16)
[2024-08-25] MEDS: GABAPENTIN 300 MG CAP PO SCH (20:16)
[2024-08-26 02:02] VITALS: BMI 25.0
[2024-08-26 04:37] LABS: Absolute Eosinophils 0.2 K/uL (0-0.5); Absolute Lymphocytes (CBC) 1.8 K/uL (0.7-4.9); Absolute Monocytes 0.9 K/uL (0.1-1.3); Absolute Neutrophil 4.3 K/uL (1.8-8.0); Basophils % 0.6 % (0-1.3); Eosinophils % 2.6 % (0-4.4); Hematocrit 34.8 % (36.0-45.0); Lymphocytes % 24.5 % (15.3-44.8); MCH 30.6 pg (27.0-35.0); MCHC 34.4 g/dL (32.0-36.0); MCV 89.1 fL (80-100); MPV 8.5 fL (7.6-11.3); Monocytes % 12.4 % (3.3-12.3); Neutrophils % 59.9 % (41.7-73.7); Platelets 190 thou/uL (152-406); Red Cell Distribution Width 13.2 % (12.1-15.2)
[2024-08-26 04:55] LABS: Anion Gap 6.8 mEq/L (5.0-15.0); Potassium 3.8 mEq/L (3.5-5.1)
[2024-08-26] MEDS: POTASSIUM CL SA 10 MEQ TAB PO ONE (09:27)
--- NOTE | 2024-08-26 13:09 | P.PN ---
Subjective Date of Service: 08/26/24 Chief Complaint: AMS Patient is awake and interactive. No issues overnight. Son is concerned patient is weak from staying in bed all weekend No reported agitation. Physical Examination - Vital Signs Temperature: 97.9 F Blood Pressure: 137/62 Pulse: 60 Respirations: 12 Pulse Ox (%): 96 Assessment And Plan - Plan Physical examination General: Awake, NAD, Neck: No elevated JVD Heart: Heart sounds 1 and 2 normal, regular rhythm, normal rate, no pedal edema Lungs: Clear to auscultation bilaterally, adequate breath sounds bilaterally, no rhonchi or crackles. Abdomen: Soft, nondistended, nontender, normal bowel sounds. Extremities: No tenderness, no deformity Skin: Normal skin turgor, no rash, no nodules or ulcers. Neuro: No focal motor deficit. Normal speech. Psychiatry: no agitation. Diagnosis Acute metabolic encephalopathy Acute cystitis without hematuria NSTEMI type II Essential hypertension Diabetes mellitus type 2 Dementia Plan: Acute metabolic encephalopathy Acute cystitis without hematuria History of dementia Delirium resolved. CT head negative for any acute changes Urine cultures grew Serratia. IV cefepime transitioned to oral ciprofloxacin. Continue oral ciprofloxacin. Patient to complete 7 days of antibiotic treatment Clinically improved. Monitor for agitation. Continue home dementia medications. Neurology-Dr. Novak's is following. NSTEMI type 2 Elevated troponin likely secondary demand ischemia. Patient is asymptomatic. Troponin trended down Telemetry monitoring. Continue aspirin and statin Echocardiogram unremarkable, normal EF. Cardiology input appreciated. Hypertension Continue losartan, metoprolol and amlodipine Hydralazine as needed for BP spikes. Diabetes type II Insulin sliding scale Continue Semglee. Home antidiabetic's on hold. Accu-Chek before every meal and at bedtime. Chronic back pain Continue gabapentin at bedtime. GI/DVT prophylaxis: Lovenox Advanced directive full code
--- NOTE | 2024-08-27 06:30 | P.PN ---
Date of Service: 08/27/24 Subjective: more tired / somnolent has 24-48 hours per family nursing staff reports some difficulty falling asleep last night. was awake past midnight worked with PT yesterday. Able to ambulate ~300 ft with assistance family updated at bedside afebrile ROS: 10 point ROS as noted above, otherwise negative Physical Exam: GEN: NAD, somnolent HEENT: Normal conjunctiva, sclera anicteric, PERRL CV: Regular rate and rhythm, no edema Pulm: Nonlabored respirations on room air, clear bilaterally ABD: soft, nontender, nondistended Integumentary: No rashes Neuro: Normal speech, normal affect Problem List: Acute metabolic encephalopathy, improved Acute cystitis without hematuria Dementia NSTEMI type II hx CAD s/p prior PCI Hypertension IDDM2 Chronic back pain Acute metabolic encephalopathy, improved Acute cystitis without hematuria Dementia on admission, presents with worsening confusion, altered mentation. Delirium resolved. Clinically improved. However somnolent this morning CT head (08/20): negative for any acute changes urine cx (08/20): Serratia Plymuthica previously on IV cefepime (08/20-08/23) and PO cipro (08/24-08/25) continue cefdinir (08/25-). To complete 7 days total no leukocytosis, afebrile Dr. Scarlet Solis is following Continue home dementia medications. continue PT NSTEMI type II hx CAD s/p prior PCI Troponins mildly elevated but trended flat. Peaked at 112 Elevated Troponin's secondary to demand ischemia Monitor on telemetry Asymptomatic. No chest pain Continue aspirin, statin Echocardiogram (08/21): 55-60% EF, grade 1 diastolic dysfunction Cardiology consulted Hypertension Continue losartan, metoprolol and amlodipine IV Hydralazine PRN IDDM2 accu-cheks, SSI Continue Semglee. Chronic back pain Continue gabapentin at bedtime. VTE: Lovenox Code: Full Dispo: home vs SNF, ~1-2 days son updated at bedside today pending more alertness / ambulating Time Spent Managing Pts Care (In Minutes): 41
[2024-08-27] MEDS: GLUCERNA SHAKE 237 ML CAN PO SCH (21:00)
[2024-08-27] MEDS: ACETAMINOPHEN 325 MG TABLET PO PRN (21:15)
[2024-08-28 05:24] LABS: Albumin 3.2 g/dL (3.4-5.0); Anion Gap 7.6 mEq/L (5.0-15.0); Bilirubin Total 0.8 mg/dL (0.2-1.0); Globulin 3.1 g/dL (2.3-3.5); Magnesium 1.8 mg/dL (1.6-2.4); Potassium 3.6 mEq/L (3.5-5.1); Protein, Total 6.3 g/dL (6.4-8.2)
[2024-08-28] MEDS: GALANTAMINE 4 MG TAB PO SCH (08:33)
[2024-08-28] MEDS: MAGNESIUM SULFATE 1 gm IVPB 1 GM/100 ML BAG IV ONE (08:33)
[2024-08-28] MEDS: POTASSIUM 25 MEQ EFFERV TAB PO ONE (08:33)
--- NOTE | 2024-08-28 09:08 | P.PN ---
Date of Service: 08/28/24 Subjective: remains confused but more awake / interactive today. following commands. Responding to questions somewhat appropriately some difficulty swallowing pills yesterday per nursing staff no reported difficulty swallowing today ambulated ~300ft with PT yesterday ROS: 10 point ROS as noted above, otherwise negative Physical Exam: GEN: NAD, awake, confused CV: Regular rate and rhythm, no edema Pulm: Nonlabored respirations on room air, clear bilaterally ABD: soft, nontender, nondistended Neuro: Normal speech, normal affect Problem List: Acute metabolic encephalopathy, improved Acute cystitis without hematuria Dementia NSTEMI type II hx CAD s/p prior PCI Hypertension NIDDM2 Chronic back pain Acute metabolic encephalopathy, improved Acute cystitis without hematuria Dementia on admission, presents with worsening confusion, altered mentation. Delirium resolved. Clinically improved. CT head (08/20): negative for any acute changes urine cx (08/20): Serratia Plymuthica previously on IV cefepime (08/20-08/23) and PO cipro (08/24-08/25) continue cefdinir (08/25-). To complete 7 days total no leukocytosis, afebrile Dr. Scarlet Camp Neuro is following restart home galantamine at lower dose since been off of it for ~1 week at least son can't find meds, will need refills continue PT/ST NSTEMI type II hx CAD s/p prior PCI Troponins mildly elevated but trended flat. Peaked at 112 Elevated Troponin's secondary to demand ischemia Monitor on telemetry Asymptomatic. No chest pain Continue aspirin, statin Echocardiogram (08/21): 55-60% EF, grade 1 diastolic dysfunction Cardiology consulted Hypertension Continue losartan, metoprolol and amlodipine IV Hydralazine PRN NIDDM2 accu-cheks, SSI Continue Semglee for now given hyperglycemia resume home diabetic regimen on discharge a1c 8.9 Chronic back pain gabapentin dc'd 08/27 d/t possible contribution to somnolence VTE: Lovenox Code: Full Dispo: home ~anticipate 1 day son updated at bedside today Time Spent Managing Pts Care (In Minutes): 41
[2024-08-28] MEDS: CRANBERRY FRUIT EXTRACT 200 MG CAP PO SCH (20:49)
[2024-08-29 06:43] LABS: Anion Gap 9.5 mEq/L (5.0-15.0); Magnesium 2.1 mg/dL (1.6-2.4); Potassium 3.5 mEq/L (3.5-5.1)
--- NOTE | 2024-08-29 08:49 | P.DS ---
Admission Date: 08/20/24 Discharge Date: 08/29/24 Disposition: DC HOME/HOME HEALTH CARE Discharge Condition: FAIR Reason for Admission: AMS Consultations: Cardiology - Dr. Viramontes / Dr. Dsouza Neurology - Dr. Novak Brief History of Present Illness: 79yo F, PMH: hypertension, diabetes, CAD, myocardial infraction status post PCI, bowel obstruction Patient brought to ER with confusion and altered mental status. Patient has been altered for the last 2 days. Denies any chest pain or shortness of breath. Patient is a poor historian hence most of the history is obtained from the chart review and also talking with the ER physician. Patient was assessed in the ER and is admitted for further management of acute encephalopathy Hospital Course: Problem List: Acute metabolic encephalopathy, improved Acute cystitis without hematuria Dementia NSTEMI type II hx CAD s/p prior PCI Hypertension NIDDM2 Chronic back pain Physician discharge instructions: Patient presented with worsening confusion, altered mentation secondary to acute cystitis. Urine culture grew Serratia Plymuthica resistant to cefazolin/augmentin. CT head was negative for any acute findings. Mentation improved shortly after starting antibiotics and restarting her home dementia medications. She did have ~24-36hrs of increased somnolent/confusion after initial improvement, which occurred after not sleeping much and receiving ambien. This all resolved and she continued to improve. Tolerated diet, ambulating with only contact guard assist, and main limiting factor is her dementia. Neurology was consulted. Dr. Novak felt confusion to be more secondary from possible toxic encephalopathy from UTI further complicated by her progressive Alzheimer's dementia and felt she may benefit from memory care unit. Patient's son is working on getting her into a facility near his residence. Patient is discharged to his home with home health in the meantime. IV cefepime was deescalated to oral cefdinir following culture results and patient continued to improve daily. Patient is to complete 3 more days of oral cefdinir for total of 7 days treatment. She worked with PT throughout her stay and was able to ambulate ~300ft with assistance. Patient was feeling better, afebrile without leukocytosis, strength improving, mentation improved and was deemed stable for discharge. Troponins were noted to be mildly elevated this hospitalization but trended flat (peak 112). Patient asymptomatic without any reported chest pain or shortness of breath. Echocardiogram noted 55-60% EF, grade 1 diastolic dysfunction. Suspect elevated troponin's secondary to demand ischemia in setting of infection/UTI. Cardiology was consulted and recommended following up in near future for outpatient stress test. No evidence to warrant further inpatient cardiac workup. Medications: Cefdinir 300 mg twice daily for 3 more days Amlodipine 10 mg daily During hospitalization, family reported they couldn't locate a few of patient regular home medication bottles. Refill prescriptions sent for Galantamine, Glipizide, Losartan, Plavix, Metoprolol, Tradjenta, Ezetimibe Follow up with PCP for further refills Follow up: PCP 3-5 days Cardiology 2-4 weeks Please call to schedule / confirm appointments Physical Exam: GEN: NAD, awake, confused CV: Regular rate and rhythm, no edema Pulm: Nonlabored respirations on room air, clear bilaterally ABD: soft, nontender, nondistended Neuro: Normal speech, normal affect Vital Signs/Physical Exam: Temp Pulse Resp BP Pulse Ox 97 F 80 18 158/71 H 98 08/29/24 03:15 08/29/24 03:15 08/29/24 03:15 08/29/24 03:15 08/29/24 03:15 Laboratory Data at Discharge: WBC 7.20 thou/uL (4.3-10.9) 08/26/24 04:26 Hgb 12.0 g/dL (12.0-15.0) 08/26/24 04:26 Hct 34.8 % (36.0-45.0) L 08/26/24 04:26 Plt Count 190 thou/uL (152-406) 08/26/24 04:26 PT 12.4 SECONDS (9.4-12.5) 08/20/24 17:09 INR 1.11 08/20/24 17:09 Sodium 140 mEq/L (136-145) 08/29/24 06:17 Potassium 3.5 mEq/L (3.5-5.1) 08/29/24 06:17 BUN 32 mg/dL (7-18) H 08/29/24 06:17 Creatinine 0.64 mg/dL (0.55-1.02) 08/29/24 06:17 Glucose 212 mg/dL (74-106) H 08/29/24 06:17 Phosphorus 2.6 mg/dL (2.5-4.9) 08/22/24 04:30 Magnesium 2.1 mg/dL (1.6-2.4) 08/29/24 06:17 Total Bilirubin 0.8 mg/dL (0.2-1.0) 08/28/24 04:49 AST 21 U/L (15-37) 08/28/24 04:49 ALT 31 U/L (13-56) 08/28/24 04:49 Alkaline Phosphatase 83 U/L (45-117) 08/28/24 04:49 Triglycerides 289 mg/dL (<150) H 08/21/24 04:54 Cholesterol 219 mg/dL (<200) H 08/21/24 04:54 HDL Cholesterol 33 mg/dL (40-60) L 08/21/24 04:54 Cholesterol/HDL Ratio 6.64 08/21/24 04:54 Home Medications: Evolocumab [Repatha Sureclick] 140 mg SQ SEECOM 10/24/23 Aspirin [Aspirin EC] 81 mg PO DAILY #30 tab 10/26/23 Amlodipine [Norvasc*] 10 mg PO DAILY 30 Days #30 tab 08/28/24 Cefdinir [Cefdinir*] 300 mg PO BID 3 Days #6 cap 08/28/24 Clopidogrel Bisulfate [Plavix*] 75 mg PO DAILY 30 Days #30 tab 08/28/24 Ezetimibe [Zetia*] 1 tab PO DAILY 30 Days #30 tab 08/28/24 Galantamine HBr [Galantamine ER] 8 mg PO DAILY 30 Days #30 cap 08/28/24 Glipizide [Glipizide Xl] 1 tab PO BID 30 Days #60 tab 08/28/24 Linagliptin [Tradjenta] 5 mg PO DAILY 30 Days #30 tab 08/28/24 Losartan Potassium 1 tab PO DAILY 30 Days #30 tab 08/28/24 Metoprolol Succinate [Toprol Xl*] 1 tab PO DAILY 30 Days #30 tab 08/28/24 New Medications: Cefdinir [Cefdinir*] 300 mg PO BID 3 Days #6 cap Galantamine HBr [Galantamine ER] 8 mg PO DAILY 30 Days #30 cap Glipizide [Glipizide Xl] 1 tab PO BID 30 Days #60 tab Losartan Potassium 1 tab PO DAILY 30 Days #30 tab Amlodipine [Norvasc*] 10 mg PO DAILY 30 Days #30 tab Clopidogrel Bisulfate [Plavix*] 75 mg PO DAILY 30 Days #30 tab Metoprolol Succinate [Toprol Xl*] 1 tab PO DAILY 30 Days #30 tab Linagliptin [Tradjenta] 5 mg PO DAILY 30 Days #30 tab Ezetimibe [Zetia*] 1 tab PO DAILY 30 Days #30 tab Physician Discharge Instructions: Physician discharge instructions: Patient presented with worsening confusion, altered mentation secondary to acute cystitis. Urine culture grew Serratia Plymuthica resistant to cefazolin/augmentin. CT head was negative for any acute findings. Mentation improved shortly after starting antibiotics and restarting her home dementia medications. She did have ~24-36hrs of increased somnolent/confusion after initial improvement, which occurred after not sleeping much and receiving ambien. This all resolved and she continued to improve. Tolerated diet, ambulating with only contact guard assist, and main limiting factor is her dementia. Neurology was consulted. Dr. Novak felt confusion to be more secondary from possible toxic encephalopathy from UTI further complicated by her progressive Alzheimer's dementia and felt she may benefit from memory care unit. Patient's son is working on getting her into a facility near his residence. Patient is discharged to his home with home health in the meantime. IV cefepime was deescalated to oral cefdinir following culture results and patient continued to improve daily. Patient is to complete 3 more days of oral cefdinir for total of 7 days treatment. She worked with PT throughout her stay and was able to ambulate ~300ft with assistance. Patient was feeling better, afebrile without leukocytosis, strength improving, mentation improved and was deemed stable for discharge. Troponins were noted to be mildly elevated this hospitalization but trended flat (peak 112). Patient asymptomatic without any reported chest pain or shortness of breath. Echocardiogram noted 55-60% EF, grade 1 diastolic dysfunction. Suspect elevated troponin's secondary to demand ischemia in setting of infection/UTI. Cardiology was consulted and recommended following up in near future for outpatient stress test. No evidence to warrant further inpatient cardiac workup. Medications: Cefdinir 300 mg twice daily for 3 more days Amlodipine 10 mg daily During hospitalization, family reported they couldn't locate a few of patient regular home medication bottles. Refill prescriptions sent for Galantamine, Glipizide, Losartan, Plavix, Metoprolol, Tradjenta, Ezetimibe Follow up with PCP for further refills Follow up: PCP 3-5 days Cardiology 2-4 weeks Please call to schedule / confirm appointments Followup: Rj Lomeli DO [Primary Care Provider] - Time spent managing pt's care (in minutes): 45
[2024-08-29 08:58] VITALS: O2SAT 98
[2024-08-29] MEDS ORDERED: ASPIRIN EC 81 MG TAB PO SCH (09:00)
[2024-08-29] MEDS: CLOPIDOGREL 75 MG TABLET PO SCH (09:52)
[2024-08-29] MEDS: POTASSIUM CL SA 10 MEQ TAB PO ONE (09:52)
[2024-08-29 14:03] VITALS: BP 160/72; TEMP 97.5
== END 2024-08-29 13:53 | disposition home or self-care (01) | DRG 689 ==
LOC: ER 16:27 → ERHOLD 18:27 → 2ND 08-21 12:44
PROVIDERS: ADMIT Family Medicine; ATTEND Hospitalist
DX: N30.00 Acute cystitis without hematuria (principal); G92.8 Other toxic encephalopathy; I21.A1 Myocardial infarction type 2; F05 Delirium due to known physiological condition; Z16.29 Resistance to other single specified antibiotic; I10 Essential (primary) hypertension; E78.5 Hyperlipidemia, unspecified; E11.65 Type 2 diabetes mellitus with hyperglycemia; E11.42 Type 2 diabetes mellitus with diabetic polyneuropathy; G89.29 Other chronic pain; M54.9 Dorsalgia, unspecified; G31.9 Degenerative disease of nervous system, unspecified; G30.9 Alzheimer's disease, unspecified; F02.80 Dementia in other diseases classified elsewhere, unspecified severity, without behavioral disturbance, psychotic disturbance, mood disturbance, and anxiety; I25.10 Atherosclerotic heart disease of native coronary artery without angina pectoris; I25.2 Old myocardial infarction; R79.89 Other specified abnormal findings of blood chemistry; Z88.1 Allergy status to other antibiotic agents; Z95.5 Presence of coronary angioplasty implant and graft; Z79.84 Long term (current) use of oral hypoglycemic drugs; Z79.02 Long term (current) use of antithrombotics/antiplatelets; Z90.49 Acquired absence of other specified parts of digestive tract; Z90.710 Acquired absence of both cervix and uterus; Z79.899 Other long term (current) drug therapy
CPT/HCPCS: 36415; 70450; 71045; 80048; 80053; 80061; 80076; 81001; 82550; 82947; 83036; 83735; 83880; 84100; 84484; 85025; 85610; 87077; 87086; 87088; 87186; 87804; 87811; 92523; 93005; 93306; 94760; 96361; 96365; 96366; 97116; 97161; 97530; 99285; J0360; J0692; J0696; J1630; J1650; J3475; J7030; J7040